=== PATIENT | female | born 1965 | race Caucasian/White ===

== ENCOUNTER 2018-02-11 22:08 | Emergency (ER) | payer OTHER, MEDICAID, SELFPAY ==
[2018-02-11 22:18] VITALS: BP 133/80; PULSE 70; RESP 66; TEMP 36.7; O2SAT 18; BMI 31.6
--- NOTE | 2018-02-11 22:43 | ED.CHESTPAIN ---
HPI - Chest Pain General Chief Complaint: Chest Pain Stated Complaint: CHEST PAIN Time Seen by Provider: 02/11/18 22:19 Source: patient Mode of arrival: ambulatory Limitations: no limitations History of Present Illness HPI narrative: 52-year-old female here for evaluation of chest pain. Patient states that she has had chest pain like this off and on for at least a month if not 2 months. Was evaluated at [facility] approximately 1 month ago for this and had a ???negative workup ???she has also seen her primary care doctor for this and is scheduled for a stress test this Saturday. She states that she was given Prilosec by her primary doctor which she has not taken because she did not feel that it is GI related. She was also given a prescription for nitroglycerin but has not taken it. She states that yesterday she had the same pain that she has today when she was outside working in the yard. She states that it is a pressure sensation. She states that it went away last night when she went to bed when she woke up this morning she did not have the symptoms. She states that approximately 7 hr prior to arrival here in the emergency department she had return of the symptoms. She states she was not exerting herself today. States that it is a constant pressure. She states that she does have ???GI problems ???she is seeing a GI provider for. She also has ???an elevated CRP ???that she is seeing Rheumatology for. Related Data Home Medications Medication Instructions Recorded Confirmed [MAXALT] 1 tab PO Q12HP PRN #0 05/31/11 gabapentin PO #0 10/20/17 Previous Rx's Medication Instructions Recorded amoxicillin 500 mg PO BID #20 cap 03/19/17 levonorgestrel-ethinyl estrad 1 tab PO QDAY #28 tab 01/07/18 [Lutera (28)] Allergies Allergy/AdvReac Type Severity Reaction Status Date / Time codeine [CODEINE] Allergy Mild NAUSEA Unverified 12/25/17 11:52 Sulfa (Sulfonamide Allergy Unknown HIVES Unverified 12/25/17 11:52 Antibiotics) [SULFA (SULFONAMIDE ANTIBIOTICS)] SENSITIVE TO NARCOTICS Allergy Mild NAUSEA Uncoded 12/25/17 11:52 Review of Systems Constitutional Denies chills, Denies fever(s), Denies lethargy and Denies weakness Cardiovascular Reports chest pain, Reports chest pain at rest, Reports chest pain with activity, Denies rapid heart rate, Denies lightheadedness, Denies palpitations, Denies dyspnea, Denies dyspnea on exertion and Denies orthopnea Respiratory Denies chest congestion, Denies cough, Denies dyspnea and Denies dyspnea on exertion Gastrointestinal Gastrointestinal: Denies change in bowel habits, Denies diarrhea and Denies vomiting Genitourinary Denies hematuria, Denies flank pain, Denies urinary incontinence and Denies urinary urgency Musculoskeletal Denies back pain, Denies muscle weakness, Denies numbness and Denies tingling Integumentary/Breasts Denies pruritus, Denies erythema, Denies rash and Denies wounds Neurologic Denies numbness, Denies tingling and Denies weakness Endocrine Denies palpitations Hematologic/Lymphatic Denies easy bruising PFS Surgical History History of third molar tooth extraction History of thyroidectomy (12/21/14) Status post laparoscopy Status post laparoscopy Social History Smoking Status: Former smoker Exam Initial Vital Signs Initial Vital Signs: Vital Signs Temperature 98.1 F 02/11/18 22:18 Pulse Rate 70 02/11/18 22:18 Respiratory Rate 66 H 02/11/18 22:18 Blood Pressure 133/80 H 02/11/18 22:18 Pulse Oximetry 18 L 02/11/18 22:18 Const General: cooperative and well developed Nutritional Appearance: well nourished Orientation: alert, awake, oriented x3 and not confused Chest Chest: normal inspection of the chest Resp Effort & Inspection: normal respiratory effort, able to speak in complete sentences, no respiratory distress and no use of accessory muscles Auscultation: clear to auscultation bilaterally, no rales, no rhonchi and no wheezes Cardio Rate: regular rate Rhythm: regular rhythm Heart Sounds: no click, no gallops, no murmurs and no rubs Pulses: normal peripheral pulses GI Inspection: non-distended Palpation: soft, no hepatosplenomegaly, No guarding, No pulsatile mass and No tender Auscultation: normal bowel sounds Back/Spine/Pelvis Back: No CVA tenderness Skin General: no rashes or lesions noted, No jaundice and No petechiae Neuro General: alert, oriented x3, gait normal and no focal motor deficits Speech: speech normal Extrem General: full ROM, no clubbing, cyanosis or edema, no pedal edema and no calf tenderness Course Orders Ordered: ED Orders 02/11/18 22:16 Complete Blood Count AUTO DIFF Stat Comprehensive Metabolic Panel Stat Lipase Stat Troponin with CK Cardiac Panel Stat 02/11/18 22:44 XR chest 1V Stat EKG-12 Lead Stat Sodium Chloride (Normal Saline 0.9%) 1,000 mls @ 150 mls/hr IV CONT NATA Last Admin: 02/11/18 22:53 Dose: 150 mls/hr Discontinued Medications Aspirin (Aspirin Chew) 324 mg PO NOW ONE Stop: 02/11/18 22:45 Last Admin: 02/11/18 22:53 Dose: Vital Signs - 8 hr 02/11/18 22:18 02/11/18 23:50 02/12/18 00:24 Temperature 98.1 F Pulse Rate 70 77 72 Respiratory Rate 66 H 17 19 Blood Pressure 133/80 H Blood Pressure [Left Arm] 120/65 119/72 Pulse Oximetry 18 L 98 98 MDM - Chest Pain Lab Data Attestation: I reviewed the patient's lab results. Result diagrams: 02/11/18 22:16 02/11/18 22:16 Lab Results 02/11/18 02/11/18 Range/Units 22:16 22:16 WBC 10.7 (4.5-11.0) X10^3/uL RBC 4.13 (4.0-5.2) X10^6/uL Hgb 12.8 (12.0-16.0) g/dL Hct 37.7 (36-46) % MCV 91.2 (80-100) fL MCH 31.0 (26-34) PG MCHC 34.0 (30-36) % RDW 13.5 (11.6-14.8) % Plt Count 258 (150-400) X10^3/uL Neut % (Auto) 64.2 (50-75) % Lymph % (Auto) 27.2 (25-40) % [place] % (Auto) 6.5 (3-14) % Eos % (Auto) 1.6 L (2-4) % Baso % (Auto) 0.5 (0-2) % Neut # (Auto) 6900 H (3081-7777) /uL Sodium 140 (137-145) mmol/L Potassium 3.4 (3.4-5.1) mmol/L Chloride 105 (98-107) mmol/L Carbon Dioxide 24 (22-32) mmol/L BUN 14 (7-17) mg/dL Creatinine 0.70 (0.52-1.04) mg/dL Estimated GFR > 60.0 (>60) mL/min BUN/Creatinine Ratio 20.0 (6-22) Glucose 78 (70-100) mg/dL Calcium 7.9 L (8.4-10.2) mg/dL Total Bilirubin 0.4 (0.2-1.3) mg/dL AST 36 (14-36) IU/L ALT 35 (9-52) IU/L Alkaline Phosphatase 58 (38-126) U/L Total Creatine Kinase 102 (30-135) U/L CK-MB (CK-2) 0.66 (<2.37) ng/mL CK-MB (CK-2) Rel Index 0.6 L (1.5-5.0) % Troponin I < 0.012 (0.01-0.034) ng/mL Total Protein 7.0 (6.3-8.2) g/dL Albumin 3.9 (3.5-5.0) g/dL Globulin 3.1 (1.7-4.1) g/dL Albumin/Globulin Ratio 1.3 (1.0-2.8) Lipase 111 (23-300) U/L Imaging Data Chest x-ray: Attestation: I personally reviewed and interpreted this imaging study as follows: My impression: Normal size heart No pneumonia No pneumothorax ECG Data Attestation: I personally reviewed and interpreted this ECG as follows: Prior ECG tracings: available for review Interpretation: EKG dated 11 Feb 2018 time 2215 hr Sinus rhythm Ventricular rate is 62 Normal axis Normal intervals Normal QRS No ST T wave changes EKG dated 01/17/2018 unchanged from today's EKG MDM Narrative Medical decision making narrative: Patient with normal EKG today. Unchanged from EKG earlier this month. Has had constant symptoms for greater than 6 hr. Troponin negative here in the emergency department. Has been seen multiple times for this exact symptom and has had negative cardiac workup. He is scheduled for a stress test on Saturday. Also has other ???GI ???symptoms that she is seeing a stock unloader for. She states that she is being seen for gastric motility issues. Given her symptoms and her EKG and negative troponin and the fact that the symptoms have been going on for 2 months now I have low concern currently for an acute SC. She was instructed that she should be taken her Prilosec as directed. We discussed return precautions. We discussed the importance of keeping her stress test appointment for Saturday. She expressed understanding and agreement with plan Discharge Plan Departure Patient Disposition: Home, Self-Care Clinical Impression: Chest pain Instructions: DI for Atypical Chest Pain Activity Restrictions/Additional Instructions: Recommend that you keep your appointment on Saturday for your stress test. Also recommend that you take the medications likely discussed. You may return to the emergency department at any time for new or concerning symptoms Prescriptions: No Action [MAXALT] 1 tab PO Q12HP PRNQty: 0 RF: 0 amoxicillin 500 MG capsule 500 mg PO BID Qty: 20 RF: 0 gabapentin 100 MG capsule PO Qty: 0 RF: 0 levonorgestrel-ethinyl estrad [Lutera (28)] 1 EACH tablet 1 tab PO QDAY Qty: 28 RF: 2
--- NOTE | 2018-02-11 22:44 | DI.RAD.S_ITS ---
PROCEDURE: XR CHEST 1V INDICATIONS: Chest pain TECHNIQUE: One view of the chest was acquired. COMPARISON: [facility], CR, CHEST 2 VIEW, 01/21/2013, 16:30. [facility], CT, THORAX WITHOUT CONTRAST, 09/15/2014, 14:25. FINDINGS: Surgical changes and devices: None. Lungs and pleura: No pleural effusions or pneumothorax. Lungs are clear. Mediastinum: Mediastinal contours appear normal. Heart size is normal. Bones and chest wall: No suspicious bony lesions. Overlying soft tissues appear unremarkable. IMPRESSION: No acute cardiopulmonary abnormality or interval change. Source of chest pain not seen. Dictated by: Narciso Hernandez M.D. on 02/12/2018 at 8:08 Approved by: Narciso Hernandez M.D. on 02/12/2018 at 8:10
[2018-02-11 22:50] LABS: Add Manual Diff / Slide Review NO; Basophils Percent Auto 0.5 % (0-2); Eosinophils Percent Auto 1.6 % (2-4); Hematocrit 37.7 % (36-46); Hemoglobin 12.8 g/dL (12.0-16.0); Lymphocytes Percent Auto 27.2 % (25-40); Mean Corpuscular Volume 91.2 fL (80-100); Monocytes Percent Auto 6.5 % (3-14); Neutrophils Absolute Auto 6900 /uL (3000-5900); Neutrophils Percent Auto 64.2 % (50-75); Platelet Count 258 X10^3/uL (150-400); Red Blood Cell Count 4.13 X10^6/uL (4.0-5.2); Red Cell Distribution Width 13.5 % (11.6-14.8); White Blood Cell Count 10.7 X10^3/uL (4.5-11.0)
[2018-02-11] MEDS: SODIUM CHLORIDE 0.9% 1,000 ML 150 ML IV (22:53)
[2018-02-11 22:58] LABS: Alanine Aminotransferase 35 IU/L (9-52); Albumin 3.9 g/dL (3.5-5.0); Albumin Globulin Ratio 1.3 (1.0-2.8); Alkaline Phosphatase 58 U/L (38-126); Aspartate Aminotransferase 36 IU/L (14-36); Bilirubin Total 0.4 mg/dL (0.2-1.3); Blood Urea Nitrogen 14 mg/dL (7-17); Calcium 7.9 mg/dL (8.4-10.2); Carbon Dioxide 24 mmol/L (22-32); Chloride 105 mmol/L (98-107); Creatine Kinase 102 U/L (30-135); Estimated Glomerular Filt Rate > 60.0 mL/min (>60); Globulin 3.1 g/dL (1.7-4.1); Glucose 78 mg/dL (70-100); HEMOLYSIS < 15 (0-50); Lipase 111 U/L (23-300); Potassium 3.4 mmol/L (3.4-5.1); Sodium 140 mmol/L (137-145)
[2018-02-11 23:10] LABS: Troponin I < 0.012 ng/mL (0.01-0.034)
[2018-02-11 23:13] LABS: CKMB % Relative Index 0.6 % (1.5-5.0); Creatine Kinase MB 0.66 ng/mL (<2.37)
[2018-02-11 23:50] VITALS: BP 120/65; PULSE 77; RESP 17; O2SAT 98
[2018-02-12 00:24] VITALS: BP 119/72; PULSE 72; RESP 19; O2SAT 98
[2018-02-12 00:30] VITALS: BP 119/72; PULSE 67; RESP 17; O2SAT 99
== END 2018-02-12 00:30 | disposition home or self-care (01) ==
PROVIDERS: Emergency Provider Emergency Medicine; Family Provider Physician Assistant Medical; PCP Family Medicine
DX: R07.89 Other chest pain (principal)
CPT/HCPCS: 36591; 71045; 80053; 82550; 82553; 83690; 84484; 85025; 93005; 96360; 99283; 99285

== ENCOUNTER → 2018-03-04 12:13 | Outpatient (CLI) | payer OTHER, MEDICAID, SELFPAY ==
--- NOTE | 2018-03-05 15:45 | DI.NM.S_ITS ---
DATE OF SERVICE: 03/04/2018 PROCEDURE: Exercise perfusion study. INDICATIONS: Exertional chest pain, hyperlipidemia. RADIOPHARMACEUTICAL: 20.2 mCi technetium-99m Myoview IV was injected at stress and 25.3 mCi technetium-99m Myoview IV was injected at rest. CARDIAC STRESS: Patient underwent exercise perfusion study under the supervision of an attending staff. She walked on Andrew protocol for 6 minutes 44 seconds achieves 7 METs of workload and maximum heart rate about 139 which was 82% of target heart rate. There was normal blood pressure response. No chest pain was reported. Baseline rhythm was sinus with RSR' complex in V1. Stress EKG did not reveal any obvious inducible ischemic changes. There were some isolated PVCs. No ventricular tachycardia seen. RAW DATA: There was significant breast shadow seen. GATED STUDY: Resting LV ejection fraction 71 and stress LV ejection fraction 73%. I don't see any obvious wall motion abnormalities. No transient ischemic dilatation. TID ratio is 0.90, which is within normal limits. Resting end- diastolic volume is 108 mL. Lung/heart ratio is 0.31, which is within normal limits. MYOCARDIAL PERFUSION SCAN: Stress supine, resting supine, and stress prone were compared to each other. Stress and resting supine images revealed mild-to- moderately sized mildly decreased perfusion of [id number] anterior wall and anterior apex which got significantly resolved during prone images. During prone images, there was new basal anterior wall defect. No reversible ischemia. CONCLUSION: I'll call this study likely a normal myocardial perfusion study with evidence of breast tissue attenuation artifact as well as some shifting breast tissue attenuation artifact as stated above. The patient has preserved left ventricular (LV). No wall motion abnormalities. She had similar myocardial perfusion defect on 03/03/2013 study as well. At that time she walked for about 9 minutes on Andrew protocol. Stress LV ejection fraction was 71%. As far as perfusion scan is concerned, this appears to be low-risk myocardial perfusion scan. Clinical correlation is recommended. Cecelia Ellis - DEBRA/beck/ doc#: [id number]/job#: [id number] dd: 03/05/2018 12:34:00 dt: 03/05/2018 15:29:00 DICTATING MD/COPIES TO: Emily Juárez MD COPIES MNE: SONIA
== END ==
PROVIDERS: Family Provider Physician Assistant Medical; PCP Family Medicine; Visit Provider Family Medicine
DX: R07.9 Chest pain, unspecified (principal); E78.5 Hyperlipidemia, unspecified
CPT/HCPCS: 78452; 93016; 93017; 93018; A9502

== ENCOUNTER → 2018-06-10 11:18 | Outpatient (CLI) | payer OTHER, MEDICAID, SELFPAY ==
--- NOTE | 2018-06-10 | DI.RAD.S_ITS ---
PROCEDURE: XR HIP W PEL IF DONE LT MIN 4V INDICATIONS: CHRONIC RIGHT HIP PAIN FOR SEVERAL MONTHS TECHNIQUE: AP pelvis with lateral view(s) of the bilateral hip(s). [facility] 16:54. FINDINGS: Bones: No fractures or dislocations. Pelvic ring appears intact. No suspicious bony lesions. Soft tissues: The visualized bowel gas pattern is normal. No suspicious soft tissue calcifications. IMPRESSION: No acute radiographic findings. If there is continued pain, followup exam or additional imaging such as MRI or CT could be performed for further assessment. Dictated by: Riddhi Rincon M.D. on 06/10/2018 at 15:09 Approved by: Riddhi Rincon M.D. on 06/10/2018 at 15:10
== END ==
PROVIDERS: Family Provider Physician Assistant Medical; PCP Family Medicine; Visit Provider Nurse Practitioner
DX: M25.551 Pain in right hip (principal); G89.29 Other chronic pain; M06.4 Inflammatory polyarthropathy; M25.50 Pain in unspecified joint
CPT/HCPCS: 73522

== ENCOUNTER 2018-08-10 13:56 | Emergency (ER) | payer OTHER, MEDICAID, SELFPAY ==
[2018-08-10 14:01] VITALS: BP 115/70; PULSE 91; RESP 20; TEMP 37; O2SAT 100; BMI 30.9
--- NOTE | 2018-08-10 14:02 | ED.CHESTPAIN ---
HPI - Chest Pain General Chief Complaint: Chest Pain Stated Complaint: CHEST AND JAW PAIN Time Seen by Provider: 08/10/18 14:01 Source: patient Mode of arrival: ambulatory Limitations: no limitations History of Present Illness HPI narrative: A 52-year-old female here for evaluation of left-sided chest pressure. She states that it has been a daily occurrence for the past several weeks. States that has no other associated symptoms. Not better or worse with palpation or deep breaths or movement. She states that it starts shortly after she wakes up for the day. Does not seem to be associated with eating. She states it actually starts before she eats anything. States she had a stress test with an echocardiogram last year and was told everything was normal. She was recently diagnosed with gastroparesis. Patient is not diabetic. Related Data Home Medications Medication Instructions Recorded Confirmed [MAXALT] 1 tab PO Q12HP PRN #0 05/31/11 04/29/18 cholecalciferol (vitamin D3) 1,000 1,000 unit PO DAILY 04/29/18 04/29/18 unit capsule cyanocobalamin (vitamin B-12) 2,500 mcg PO DAILY 04/29/18 04/29/18 2,500 mcg tablet diphenhydramine 25 1 tab PO BEDTIME PRN 04/29/18 04/29/18 mg-acetaminophen 500 mg tablet levothyroxine 100 mcg tablet 100 mcg PO DAILY 04/29/18 04/29/18 melatonin 10 mg capsule 10 mg PO BEDTIME PRN 04/29/18 04/29/18 Previous Rx's Medication Instructions Recorded levonorgestrel-ethinyl estradiol 1 tab PO QDAY #28 tab 07/23/18 0.1 mg-20 mcg tablet Allergies Allergy/AdvReac Type Severity Reaction Status Date / Time codeine [CODEINE] Allergy Mild NAUSEA Unverified 04/29/18 11:35 Sulfa (Sulfonamide Allergy Unknown HIVES Unverified 04/29/18 11:35 Antibiotics) [SULFA (SULFONAMIDE ANTIBIOTICS)] SENSITIVE TO NARCOTICS Allergy Mild NAUSEA Uncoded 04/29/18 11:35 Review of Systems Constitutional Denies fever(s) and Denies headache(s) ENT Ears, Nose, Mouth, and Throat: Denies vertigo and Denies headache(s) Cardiovascular Reports chest pain, Denies chest pain with activity, Denies irregular heart rhythm, Reports radiating jaw, neck or arm pain, Denies palpitations and Denies dyspnea Respiratory Denies cough, Denies dyspnea, Denies stridor and Denies wheezing Gastrointestinal Gastrointestinal: Denies abdominal pain, Denies change in bowel habits, Denies nausea and Denies vomiting Genitourinary Denies dysuria Musculoskeletal Denies myalgias and Denies arthralgias Integumentary/Breasts Denies rash Neurologic Denies vertigo and Denies headache(s) Endocrine Denies palpitations Hematologic/Lymphatic Comments: Not on anticoagulation Allergic/Immunologic Denies wheezing PFSH Medical History Asthma (Chronic) 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) Migraines (Chronic) Surgical History History of foot surgery (Resolved 01/2016) History of third molar tooth extraction (Resolved 1984) History of thyroidectomy (Resolved 12/21/14) Status post endometrial ablation (Resolved 12/21/14) Status post laparoscopy (Resolved 1982) Status post laparoscopy (Resolved 2001) Social History Smoking Status: Former smoker Exam Initial Vital Signs Initial Vital Signs: Vital Signs Temperature 98.6 F 08/10/18 14:01 Pulse Rate 91 H 08/10/18 14:01 Respiratory Rate 20 08/10/18 14:01 Blood Pressure 115/70 08/10/18 14:01 Pulse Oximetry 100 08/10/18 14:01 Const General: cooperative, healthy appearing, comfortable, well developed, well groomed and No acute distress Orientation: alert, awake and oriented x3 HENMT Head: normal to inspection and normocephalic Chest Chest: normal inspection of the chest and No tenderness Resp Effort & Inspection: normal respiratory effort Auscultation: clear to auscultation bilaterally Cardio Rate: regular rate Rhythm: regular rhythm Pulses: radial pulses present GI Inspection: non-distended Palpation: soft and No tender Skin Lesions: no lesions Rashes: no rashes Neuro General: alert, awake and oriented x3 Extrem General: normal to inspection and capillary refill normal Psych Appearance: grossly normal and well kempt Scores HEART Score Heart Score history: Slightly Suspicious Heart Score EKG: Normal Heart Score Age: 45-64 years old Heart Score risk factors: No known risk factors Heart Score troponin: < or = to normal limit Heart Score Total: 1 Course Orders Ordered: ED Orders 08/10/18 14:04 XR chest 1V Stat EKG-12 Lead Stat 08/10/18 14:05 Complete Blood Count AUTO DIFF Stat Comprehensive Metabolic Panel Stat Lipase Stat Partial Thromboplastin Time Stat Prothrombin Time INR Stat Troponin I Stat Discontinued Medications Aspirin (Aspirin Chew) 324 mg PO NOW ONE Stop: 08/10/18 14:04 Last Admin: 08/10/18 14:07 Dose: 324 mg Ondansetron HCl (Zofran) 4 mg IV NOW ONE Stop: 08/10/18 14:04 Last Admin: 08/10/18 14:33 Dose: 4 mg Vital Signs - 8 hr 08/10/18 14:01 08/10/18 14:30 08/10/18 15:00 Temperature 98.6 F Pulse Rate 91 H 71 84 Respiratory Rate 20 16 20 Blood Pressure 115/70 Blood Pressure [Right Arm] 116/73 99/68 Pulse Oximetry 100 99 99 08/10/18 16:03 Temperature Pulse Rate 81 Respiratory Rate 19 Blood Pressure Blood Pressure [Right Arm] 119/77 Pulse Oximetry 97 MDM - Chest Pain Lab Data Attestation: I reviewed the patient's lab results. Result diagrams: 08/10/18 14:05 08/10/18 14:05 Lab Results 08/10/18 08/10/18 08/10/18 Range/Units 14:05 14:05 14:05 WBC 9.5 (4.5-11.0) X10^3/uL RBC 4.22 (4.0-5.2) X10^6/uL Hgb 13.0 (12.0-16.0) g/dL Hct 39.0 (36-46) % MCV 92.4 (80-100) fL MCH 30.9 (26-34) PG MCHC 33.4 (30-36) % RDW 14.3 (11.6-14.8) % Plt Count 277 (150-400) X10^3/uL Neut % (Auto) 80.8 H (50-75) % Lymph % (Auto) 14.8 L (25-40) % [place] % (Auto) 3.5 (3-14) % Eos % (Auto) 0.3 L (2-4) % Baso % (Auto) 0.6 (0-2) % Neut # (Auto) 7700 H (2524-2844) /uL PT 11.4 (10.1-12.7) SECONDS INR 1.0 (0.9-1.3) APTT 27 (26.4-36.2) SECONDS Sodium 140 (137-145) mmol/L Potassium 4.1 (3.4-5.1) mmol/L Chloride 106 (98-107) mmol/L Carbon Dioxide 25 (22-32) mmol/L BUN 14 (7-17) mg/dL Creatinine 0.80 (0.52-1.04) mg/dL Estimated GFR > 60.0 (>60) mL/min BUN/Creatinine Ratio 17.5 (6-22) Glucose 104 H (70-100) mg/dL Calcium 8.7 (8.4-10.2) mg/dL Total Bilirubin 0.2 (0.2-1.3) mg/dL AST 21 (14-36) IU/L ALT 35 (9-52) IU/L Alkaline Phosphatase 46 (38-126) U/L Troponin I < 0.012 (0.01-0.034) ng/mL Total Protein 6.8 (6.3-8.2) g/dL Albumin 4.1 (3.5-5.0) g/dL Globulin 2.7 (1.7-4.1) g/dL Albumin/Globulin Ratio 1.5 (1.0-2.8) Lipase 97 (23-300) U/L Imaging Data Chest x-ray: Radiologist's impression: PROCEDURE: XR CHEST 1V INDICATIONS: Chest pain TECHNIQUE: One view of the chest was acquired. COMPARISON: , , XR CHEST 1V, 02/11/2018, 22:48. FINDINGS: Surgical changes and devices: None. Lungs and pleura: No pleural effusions or pneumothorax. Lungs are clear. Mediastinum: Mediastinal contours appear normal. Heart size is normal. Bones and chest wall: No suspicious bony lesions. Overlying soft tissues appear unremarkable. IMPRESSION: No acute pulmonary process. Dictated by: Lindy Santiago M.D. on 08/10/2018 at 14:42 Approved by: Lidny Santiago M.D. on 08/10/2018 at 14:42 ECG Data Attestation: I personally reviewed and interpreted this ECG as follows: Prior ECG tracings: not available for review Interpretation: Sinus rhythm sign ventricular rate is 71 Normal axis Normal intervals likely normal QRS Normal QTC No ST T wave changes MDM Narrative Medical decision making narrative: 52-year-old female with daily symptoms for the past several weeks with a normal EKG. Negative troponin. Normal chest x-ray. Heart score is 1. Had a stress echo performed 1 year ago that she states was normal. Low suspicion for ACS. Patient is not hypoxic. Not tachypneic. Has a normal exam. Had a long discussion with the patient regarding her symptoms. She is very concerned about her presenting symptoms. I tried to provide reassurance that her workup here in the emergency department looked well. I did inform her that she needed to talk with her primary care doctor about the indications for further stress testing or consult to see cardiology. She asked multiple times whether not she needed a cardiac catheterization. I informed her that she needed to talk with a ambulette driver or her primary care doctor regarding this. I do not feel she needs admitted to the hospital today. She was given return precautions. Discharge Plan Departure Patient Disposition: Home Clinical Impression: Atypical chest pain Instructions: DI for Atypical Chest Pain Activity Restrictions/Additional Instructions: Your workup here in the emergency department was very reassuring however I would recommend that you contact your primary care doctor tomorrow to discuss the indications for further workup or the indications for referral to see cardiology. Feel free to return to the emergency department at any time for new or worsening symptoms Prescriptions: No Action [MAXALT] 1 tab PO Q12HP PRNQty: 0 RF: 0 levonorgestrel-ethinyl estrad [Lutera (28)] 0.1-20 mg-mcg tablet 1 tab PO QDAY Qty: 28 RF: 11 levothyroxine 100 mcg tablet 100 mcg PO DAILY RF: 0 cholecalciferol (vitamin D3) 1,000 unit capsule 1,000 unit PO DAILY RF: 0 cyanocobalamin (vitamin B-12) 2,500 mcg tablet 2,500 mcg PO DAILY RF: 0 melatonin 10 mg capsule 10 mg PO BEDTIME PRNRF: 0 diphenhydramine-acetaminophen [Tylenol PM Extra Strength] 25-500 mg tablet 1 tab PO BEDTIME PRNRF: 0
[2018-08-10] MEDS: ASPIRIN 81 MG TAB 324 MG PO (14:07)
[2018-08-10 14:30] VITALS: BP 116/73; PULSE 71; RESP 16; O2SAT 99
[2018-08-10 14:31] LABS: Add Manual Diff / Slide Review NO; Basophils Percent Auto 0.6 % (0-2); Eosinophils Percent Auto 0.3 % (2-4); Lymphocytes Percent Auto 14.8 % (25-40); Mean Corpuscular HGB Conc 33.4 % (30-36); Mean Corpuscular Hemoglobin 30.9 PG (26-34); Mean Corpuscular Volume 92.4 fL (80-100); Monocytes Percent Auto 3.5 % (3-14); Neutrophils Absolute Auto 7700 /uL (3000-5900); Neutrophils Percent Auto 80.8 % (50-75); Platelet Count 277 X10^3/uL (150-400); Red Blood Cell Count 4.22 X10^6/uL (4.0-5.2); Red Cell Distribution Width 14.3 % (11.6-14.8); White Blood Cell Count 9.5 X10^3/uL (4.5-11.0)
[2018-08-10] MEDS: ONDANSETRON 4 MG/2 ML INJ IV (14:33)
[2018-08-10 14:41] LABS: Prothrombin Time 11.4 SECONDS (10.1-12.7)
[2018-08-10 14:43] LABS: PTT Partial Thromboplastin Tim 27 SECONDS (26.4-36.2)
[2018-08-10 14:45] LABS: Alanine Aminotransferase 35 IU/L (9-52); Albumin 4.1 g/dL (3.5-5.0); Albumin Globulin Ratio 1.5 (1.0-2.8); Alkaline Phosphatase 46 U/L (38-126); Aspartate Aminotransferase 21 IU/L (14-36); BUN Creatinine Ratio 17.5 (6-22); Bilirubin Total 0.2 mg/dL (0.2-1.3); Blood Urea Nitrogen 14 mg/dL (7-17); Calcium 8.7 mg/dL (8.4-10.2); Carbon Dioxide 25 mmol/L (22-32); Chloride 106 mmol/L (98-107); Estimated Glomerular Filt Rate > 60.0 mL/min (>60); Globulin 2.7 g/dL (1.7-4.1); Glucose 104 mg/dL (70-100); HEMOLYSIS < 15 (0-50); Lipase 97 U/L (23-300); Potassium 4.1 mmol/L (3.4-5.1); Sodium 140 mmol/L (137-145); Total Protein 6.8 g/dL (6.3-8.2)
[2018-08-10 14:59] LABS: Troponin I < 0.012 ng/mL (0.01-0.034)
[2018-08-10 15:00] VITALS: BP 99/68; PULSE 84; RESP 20; O2SAT 99
[2018-08-10 16:03] VITALS: BP 119/77; PULSE 81; RESP 19; O2SAT 97
== END 2018-08-10 16:23 | disposition home or self-care (01) ==
PROVIDERS: Emergency Provider Emergency Medicine; Family Provider Physician Assistant Medical; PCP Family Medicine
DX: R07.89 Other chest pain (principal)
CPT/HCPCS: 36591; 71045; 80053; 83690; 84484; 85025; 85610; 85730; 93005; 96374; 99283; 99285; J2405

== ENCOUNTER → 2018-11-10 11:23 | Outpatient (CLI) | payer OTHER, MEDICAID, SELFPAY ==
--- NOTE | 2018-11-10 | DI.US.S_ITS ---
PROCEDURE: US CAROTID DOPPLER BI INDICATIONS: DIZZINESS TECHNIQUE: Color and pulse Doppler interrogation was performed of both carotid systems, with image documentation and velocity measurements. COMPARISON: None. FINDINGS: Stenosis calculations are based on SRU (Society of Radiologists in Ultrasound) criteria. Right side: Brachial blood pressure: 114/84 mm Hg. Common carotid artery peak systolic velocity: 83 cm/sec. Internal carotid artery peak systolic velocity: 80 cm/sec. Internal carotid artery end diastolic velocity: 22 cm/sec. External carotid artery peak systolic velocity: 87 cm/sec. ICA/CCA peak systolic ratio: 0.96 . Huerta scale imaging description: No visualized plaque. Percent internal carotid artery stenosis: None. Vertebral artery: Flow direction is antegrade. Left side: Brachial blood pressure: 112/79 mm Hg. Common carotid artery peak systolic velocity: 79 cm/sec. Internal carotid artery peak systolic velocity: 100 cm/sec. Internal carotid artery end diastolic velocity: 30 cm/sec. External carotid artery peak systolic velocity: 82 cm/sec. ICA/CCA peak systolic ratio: 1.26 . Huerta scale imaging description: Mild plaque at the bifurcation. Percent internal carotid artery stenosis: Less than 50% Vertebral artery: Flow direction is antegrade. IMPRESSION: Less than 50% stenosis of the internal carotid arteries bilaterally. Dictated by: Lindy Santiago M.D. on 11/10/2018 at 16:04 Approved by: Lindy Santiago M.D. on 11/10/2018 at 16:08
== END ==
PROVIDERS: Family Provider Physician Assistant Medical; PCP Family Medicine; Visit Provider Family Medicine
DX: I65.23 Occlusion and stenosis of bilateral carotid arteries (principal); R42 Dizziness and giddiness
CPT/HCPCS: 93880

== ENCOUNTER → 2018-11-19 11:26 | Outpatient (REF) | payer OTHER, MEDICAID, SELFPAY | LOC: LAB 11:26 | PROVIDERS: Family Provider Physician Assistant Medical; PCP Family Medicine; Visit Provider Family Medicine | DX: J06.9 Acute upper respiratory infection, unspecified (principal) | CPT/HCPCS: 87400 ==

== ENCOUNTER → 2018-11-21 12:22 | Outpatient (CLI) | payer OTHER, MEDICAID, SELFPAY ==
--- NOTE | 2018-11-21 | DI.RAD.S_ITS ---
PROCEDURE: XR CHEST 2V INDICATIONS: COUGH TECHNIQUE: 2 views of the chest were acquired. COMPARISON: [facility], CR, XR CHEST 1V, 08/10/2018, 14:22. [facility], CR, XR CHEST 1V, 02/11/2018, 22:48. FINDINGS: Surgical changes and devices: None. Lungs and pleura: Lungs are clear. No pleural effusions or pneumothorax. Mediastinum: Mediastinal contours are normal. Heart size is normal. Bones and chest wall: No suspicious bony abnormalities. Soft tissues appear unremarkable. IMPRESSION: Normal for age, source of current cough symptoms is not seen. Dictated by: Caio Chester M.D. on 11/21/2018 at 13:15 Approved by: Caio Chester M.D. on 11/21/2018 at 13:15
== END ==
PROVIDERS: PCP Family Medicine; Visit Provider Family Medicine
DX: R05 Cough (principal)
CPT/HCPCS: 71046

== ENCOUNTER → 2019-01-23 12:40 | Outpatient (CLI) | payer OTHER, MEDICAID, SELFPAY ==
--- NOTE | 2019-01-23 | DI.MG.S_ITS ---
BILATERAL DIGITAL SCREENING MAMMOGRAM 3D/2D WITH CAD: 01/23/2019 CLINICAL: Routine screening. Family history of breast cancer. Comparison is made to exams dated: 11/01/2017 mammogram, 10/03/2016 mammogram, and 07/15/2015 mammogram - [facility]. There are scattered fibroglandular elements in both breasts. Current study was also evaluated with a Computer Aided Detection (CAD) system. No significant masses, calcifications, or other findings are seen in either breast. There has been no significant interval change. IMPRESSION: NEGATIVE There is no mammographic evidence of malignancy. A 1 year screening mammogram is recommended. This exam was interpreted at Station ID: [id number]. NOTE: For mammograms, a report in lay terms will be sent to the patient. Approximately 15% of breast malignancies will not be visualized mammographically. In the management of a palpable breast mass, a negative mammogram must not discourage biopsy of a clinically suspicious lesion. Electronically Signed By: Turner baptiste/salvador:01/23/2019 17:27:10 copy to: Obed Peñaloza letter sent: Normal Exam ACR BI-RADS Category 1: Negative 3341F
== END ==
PROVIDERS: PCP Family Medicine; Visit Provider Obstetrics & Gynecology
DX: Z12.31 Encounter for screening mammogram for malignant neoplasm of breast (principal); Z80.3 Family history of malignant neoplasm of breast
CPT/HCPCS: 77063; 77067

== ENCOUNTER → 2019-02-26 13:47 | Outpatient (CLI) | payer OTHER, MEDICAID, SELFPAY | PROVIDERS: PCP Family Medicine; Visit Provider Family Medicine | DX: M79.601 Pain in right arm (principal) | CPT/HCPCS: 95885; 95886; 95909 ==

== ENCOUNTER → 2019-04-13 16:23 | Outpatient (CLI) | payer OTHER, MEDICAID, SELFPAY ==
--- NOTE | 2019-04-13 | DI.MRI.S_ITS ---
PROCEDURE: MR HIP RT WO CON INDICATIONS: RIGHT HIP BUTTOCK PAIN TECHNIQUE: Noncontrast coronal T1 spin echo and STIR through the bony pelvis. Coronal and axial T2 fast spin echo with fat saturation, sagittal T1 spin echo, and oblique axial T2 fast spin echo with fat saturation through the hip. COMPARISON: None. FINDINGS: Image quality: Diagnostic. Bones and joints: There is no acute fracture, dislocation, suspicious osseous lesion, or evidence of avascular necrosis involving the right hip. Mild to moderate degenerative changes of the right hip are present with heterogeneity and thinning of the hyaline articular cartilage as well as small developing marginal osteophytes. There is no significant hip joint effusion. Minimal reactive marrow edema is evident at the region of the fovea centralis of the proximal right hip. There may also be minimal degenerative cystic change along the periphery of the anterior aspect of the acetabulum. The alpha angle of the right femoral head measures approximately 55?. The remainder of the imaged osseous structures of the pelvis demonstrate no acute fractures or suspicious osseous lesions. Labrum: Evaluation of the acetabular labrum is suboptimal without intra-articular contrast. However, there is a tear evident along the superior aspect of the labrum that extends from approximately the 10 o'clock position (anterosuperior) through the 12 o'clock position (superior) into approximately at the 1 o'clock position (posterosuperior). There is a small para labral cyst identified extending along the anterosuperior margin of the labrum, which extends cranially and measures up to approximately 3.1 x 0.5 x 0.6 cm (image 5, series 6). Tendons and ligaments: The ligamentum teres isn't noted to be markedly edematous and irregular, which is suggestive of a tear. There slight increased signal involving the proximal hamstrings tendons. The distal iliopsoas tendons are intact. The right gluteus medius and gluteus minimus tendons are within normal limits. Soft tissues: Visualized muscles demonstrate normal bulk and internal signal. Quadratus femoris muscle demonstrates no internal edema to suggest ischiofemoral impingement. The proximal sciatic neurovascular bundle appears normal adjacent to the hamstring tendons. No free pelvic fluid. Bladder wall thickness is normal. The uterus is atrophic. There is a small structure demonstrating low signal intensity on the fluid sensitive sequences within the endometrial cavity region which may represent calcification versus polyp. This is not adequately characterized on this exam. The urinary bladder is decompressed. The ovaries do not appear to be enlarged. Imaged bowel loops are nondilated. IMPRESSION: 1. Mild to moderate degenerative changes of the right hip. No acute process. 2. Irregular small to moderate-sized superior right acetabular labral tear with a corresponding para labral cyst. 3. Mild proximal right hamstrings tendinopathy. 4. Probable full-thickness or near full-thickness tear of the right ligamentum teres. Dictated by: Isai Bhardwaj M.D. on 04/14/2019 at 8:43 Approved by: Isai Bhardwaj M.D. on 04/14/2019 at 8:53
== END ==
DX: M16.11 Unilateral primary osteoarthritis, right hip (principal); M76.9 Unspecified enthesopathy, lower limb, excluding foot; S73.101A Unspecified sprain of right hip, initial encounter; M25.551 Pain in right hip
CPT/HCPCS: 73721

== ENCOUNTER → 2019-05-14 12:20 | Outpatient (CLI) | payer OTHER, MEDICAID, SELFPAY ==
--- NOTE | 2019-05-14 | DI.US.S_ITS ---
PROCEDURE: US EXTREMITY NONVASC LOWER LT INDICATIONS: Localized swelling, mass and lump, left lower limb TECHNIQUE: Real-time scanning was performed of the left chatman, with image documentation. COMPARISON: Right knee radiographs 03/30/2019. FINDINGS: Area of concern at in the distal left lower extremity laterally. On my clinical examination there is a mildly prominent soft tissue bulge which is soft and compressible. No overlying erythema. On sonographic evaluation there is ill-defined asymmetric superficial soft tissue which is similar to the surrounding muscle fibers and subcutaneous fat. No mass, discrete lipoma, or varicose vein. No fluid collection. There is subtle undulation in the underlying echogenic fascia line. The abnormality does not appear to be related to the bone. Exam findings were discussed with the patient as well as real-time evaluation with radiologist. IMPRESSION: No mass, varicose vein, lipoma, or fluid collection. The exact etiology of these soft tissue bulge is uncertain but may possibly be related to asymmetric muscle bulge possibly do to a subtle fascial injury. Recommend continued clinical surveillance. If clinically indicated radiographs of the left distal extremity could also be performed. Dictated by: Hitesh Rodarte M.D. on 05/14/2019 at 13:28 Approved by: Hitesh Rodarte M.D. on 05/14/2019 at 13:37
== END ==
PROVIDERS: PCP Student in an Organized Health Care Education/Training Program; Visit Provider Student in an Organized Health Care Education/Training Program
DX: R22.42 Localized swelling, mass and lump, left lower limb (principal)
CPT/HCPCS: 76882

== ENCOUNTER → 2019-05-19 15:39 | Outpatient (CLI) | payer OTHER, MEDICAID, SELFPAY ==
--- NOTE | 2019-05-19 | DI.RAD.S_ITS ---
PROCEDURE: XR TIBIA FIBULA RT 2V INDICATIONS: Lt lower leg mass-unspecified TECHNIQUE: 2 views of the tibia and fibula were acquired. COMPARISON: None. FINDINGS: Bones: No fractures or dislocations. No suspicious bony lesions. Soft tissues: No suspicious soft tissue calcifications or masses. IMPRESSION: No lesion is found. The underlying bone structures appear normal. If there is a clinical concern for presence of underlying infection or neoplasm contrast-enhanced MR scanning is recommended. Dictated by: Caio Chester M.D. on 05/19/2019 at 16:12 Approved by: Caio Chester M.D. on 05/19/2019 at 16:12
== END ==
PROVIDERS: PCP Student in an Organized Health Care Education/Training Program; Visit Provider Student in an Organized Health Care Education/Training Program
DX: R22.42 Localized swelling, mass and lump, left lower limb (principal)
CPT/HCPCS: 73590

== ENCOUNTER 2019-07-13 06:38 | Day surgery (SDC) | payer OTHER, MEDICAID, SELFPAY ==
[2019-07-10 08:30] VITALS: BMI 30.7
[2019-07-13] VITALS (10 sets, daily range): BP systolic 103–123; BP diastolic 61–77; PULSE 54–88; RESP 12–19; TEMP 36–36.6; O2SAT 94–100; BMI 30.7
[2019-07-13] MEDS: LACTATED RINGERS 1,000 ML 100 ML IV (07:41)
--- NOTE | 2019-07-13 07:49 | PM.HP.1 ---
History of Present Illness History of Present Illness Date Patient Seen: 07/13/19 Time Patient Seen: 07:49 Chief complaint: [id number] Narrative: The patient is a woman here for exploration of an area that swells on our left lower extremity. Patient History Medical History Arthritis (Acute) Asthma (Chronic) Bruises easily (Acute) Constipation (Acute) Fibromyalgia (Acute) Former smoker (Acute) Gastroparesis (Acute) Heart murmur (Acute) History of headache (Acute) History of pneumonia (Acute) Low blood sugar (Acute) Malignant hyperthermia (Acute ~12/2014) Migraines (Chronic) Osteoarthritis (Acute) Sinus drainage (Acute) Surgical History History of foot surgery (Resolved 01/2016) History of third molar tooth extraction (Resolved 1984) History of thyroidectomy (Resolved 12/21/14) Status post endometrial ablation (Resolved 12/21/14) Status post laparoscopy (Resolved 1982) Status post laparoscopy (Resolved 2001) Family & Social History Family History Mother Stroke Grandmother Cancer Father Heart disease Grandfather Heart disease Social History: household members none Tobacco & Substance use: Smoking Status Smoker, status unknown alcohol intake frequency holiday/special occasion Substance Use Type does not use Meds Home Medications and Allergies Home Medications Medication Instructions Recorded Confirmed Type rizatriptan [Maxalt] 10 mg PO Q2-4H PRN #0 05/31/11 07/13/19 History cholecalciferol (vitamin D3) 1,000 1,000 unit PO DAILY 04/29/18 07/13/19 History unit capsule cyanocobalamin (vitamin B-12) 2,500 mcg PO DAILY 04/29/18 07/13/19 History 2,500 mcg tablet diphenhydramine 25 1 tab PO BEDTIME PRN 04/29/18 07/13/19 History mg-acetaminophen 500 mg tablet levothyroxine 100 mcg tablet 100 mcg PO DAILY 04/29/18 07/13/19 History melatonin 10 mg capsule 10 mg PO BEDTIME PRN 04/29/18 07/13/19 History gabapentin 300 mg capsule 600 mg PO DAILY 01/23/19 07/13/19 History methylprednisolone 2 mg tablet 4 mg PO DAILY 01/23/19 07/13/19 History levonorgestrel-ethinyl estradiol 1 tab PO QDAY #28 tab 04/03/19 07/13/19 Rx 0.1 mg-20 mcg tablet Allergies Allergy/AdvReac Type Severity Reaction Status Date / Time Sulfa (Sulfonamide Allergy Severe HIVES Verified 07/13/19 07:29 Antibiotics) [SULFA (SULFONAMIDE ANTIBIOTICS)] codeine [CODEINE] Allergy Mild NAUSEA Verified 07/13/19 07:29 SENSITIVE TO NARCOTICS Allergy Severe NAUSEA Uncoded 07/10/19 09:45 Review of Systems Review of Systems ROS Unobtainable: All systems reviewed & are unremarkable except as noted in HPI and below Exam Vital Signs (past 8 hours): - 07/13/19 07:41 Temperature 97.1 F L Pulse Rate 88 Respiratory Rate 15 Blood Pressure 123/77 Pulse Oximetry 100 Oxygen Delivery Method Room Air Narrative Exam Narrative: Patient is alert and oriented. The the lungs are clear. Heart regular rate and rhythm without murmur gallop. No rashes on the left lower extremity. Small fascial defect felt with small bulge left lower extremity lateral. Assessment & Plan Assessment & Plan narrative: Patient for exploration of this area. Is been scopes with her in the office. Options of MRI and observation were discussed and she wishes to proceed. Uncertain what I am going to find I suspect this is a fascial defect.
[2019-07-13] MEDS: CEFAZOLIN 2 GM/100 ML FROZ.PIGGY IV (08:03)
--- NOTE | 2019-07-13 08:25 | SUR.OPER ---
Supine on padded OR bed, head on pillow, arms secured on padded arm boards at <90 degrees abduction, legs uncrossed, safety belt at thigh, tape over blanket over lower legs.
[2019-07-13] MEDS: BUPIVACAINE 0.5% W/ EPI (PF) VIAL 30 ML INJ (08:33)
--- NOTE | 2019-07-13 09:26 | PM.OP.1 ---
Operative Date/Time/Diagnoses Date of procedure: 07/13/19 Time of procedure: 09:00 Pre-op diagnosis: Mass left lower extremity lateral Post-op diagnosis: same (Fascial defect in the muscle.) Procedure & Clinicians Procedure: Exploration of the area. Same procedure as scheduled: Yes Indications: Patient with a mass that she desired to be explored. Did not want an MRI to evaluate. Surgeon: Omega Webster Click Yes if Unassisted: Yes Anesthesia Type: General Operative Notes Findings: Fascial defect. Defect was not quite limited but could not be closed without impinging a nerve running through the fascial defect site. Closure Type: primary Specimen(s): none sent Prosthetic devices, grafts, tissues, transplants, or devices: None Estimated Blood Loss (mL): 3 Blood products transfused: none Procedure in detail: Patient was placed supine on the operating room table and underwent general LMA anesthesia. She was prepped and draped in the usual fashion. The site had been marked preoperatively in a vertical incision made through it. Was carried down through the subcu fat to the level the fascia. I explored the area and found a fascial defect but running directly through it was what appeared to be a fairly significant neurologic structure. In considering closure of the fascial defect I was concerned that I would impinge on this nerve and cause chronic pain. Therefore because this is a benign issue and there was no tumor other mass and it was clear that with compression around it muscle is what bulge through it I chose not to close the fascial defect. The subcu was closed with interrupted 3 0 Vicryl. The skin was closed running 5 0 nylon. Dressing was applied patient tolerated the procedure well. Complications: none Post-operative Condition: stable Disposition: PACU Plan for aftercare: Follow-up in office for suture remove
--- NOTE | 2019-07-13 10:00 | SUR.PHASEII ---
Dr. Power notified pt's hr 52. Pt denied feeling light headed, dizzy or nauseated. OK for patient to discharge per MD. Pt notified then c/o feeling lightheaded. Juice and crackers provided. Call light within reach. Will continue to monitor.
--- NOTE | 2019-07-13 10:16 | SUR.PHASEII ---
Pt ambulated to bathroom, sba. Jennifer steady.
--- NOTE | 2019-07-13 10:38 | SUR.PHASEII ---
Pt dressed independently. Stood and transferred to the chair independently.
== END 2019-07-13 10:35 | disposition home or self-care (01) ==
PROVIDERS: PCP Student in an Organized Health Care Education/Training Program; Visit Provider Specialist
PROC: (CPT 27600; principal; 2019-07-13 07:45)
DX: Q89.9 Congenital malformation, unspecified (principal); M79.7 Fibromyalgia; M19.90 Unspecified osteoarthritis, unspecified site; Z87.891 Personal history of nicotine dependence; J45.909 Unspecified asthma, uncomplicated
CPT/HCPCS: 27600; 35761; J0690; J1100; J2405; J2704; J2765

== ENCOUNTER 2019-10-06 12:44 | Outpatient (CLI) | payer OTHER, MEDICAID, SELFPAY ==
[2019-10-06] VITALS (9 sets, daily range): BP systolic 100–139; BP diastolic 49–80; PULSE 64–85; RESP 16; TEMP 36.3; O2SAT 98–100
--- NOTE | 2019-10-06 12:45 | DI.RAD.S_ITS ---
PROCEDURE: PAIN SI JOINT INJECTION INDICATIONS: SACROCOCCYGEAL DISORDER FINDINGS: Fluoroscopic spot filming was performed to verify placement of spinal needles at the right SI joint inferiorly, as labeled on the films. Appropriate location(s) of the needle tip(s) was confirmed by injection of iodinated contrast. IMPRESSION: Successful right inferior SI joint needle tip localization for presumed steroid injection. Dictated by: Caio Chester M.D. on 10/07/2019 at 8:35 Approved by: Caio Chester M.D. on 10/07/2019 at 8:35
[2019-10-06] MEDS: MIDAZOLAM 5 MG/5 ML VIAL IV (14:10)
[2019-10-06] MEDS: BUPIVACAINE 0.5% (PF) VIAL 2 ML INJ (14:19)
[2019-10-06] MEDS: IOPAMIDOL 15 ML VIAL 3 ML INJ (14:19)
[2019-10-06] MEDS: BETAMETHASONE 30 MG/5 ML MDV 12 MG INJ (14:19)
--- NOTE | 2019-10-06 14:21 | PC.NURSE ---
ASSISTING PT OFF TABLE AND TRANSPORTING TO POST PROC AREA IN STABLE CONDITION. PASSING RN CARE OF PT TO IRLANDA Mccallum RN.
--- NOTE | 2019-10-06 14:25 | P.PCN_ITS ---
Procedures Date/Time Date of procedure: 10/06/19 Time of procedure: 14:25 General Procedure description: PREOP Dx: Sacroiliac joint pain/DJD POST OP DX: Sacroiliac Joint Pain/DJD Procedures: Fluoroscopic guided contrast controlled right sacroiliac joint injection Physician: Johnson Landaverde D.O. Indications: Cecelia is referred by Dr. Lau for treatment of right sacroiliac joint DJD Description of procedure Fluoroscopic guided, contrast controlled right sacroiliac joint injection Following review of allergies and review of potential side effects and complications, including, but not necessarily limited to, infection, allergic reaction, local tissue breakdown, temporary as well as permanent nerve injury, paralysis, stroke and possible , the patient indicated that they understood and agreed to proceed. An informed consent was signed by the patient, witnessed by a nurse, and placed in the patient's chart. Additionally, other treatment options including modalities, medications, and physical therapy were reviewed w ith the patient. After review of previous anaesthesic history and IV conscious sedation the patient was deemed safe to proceed with todays procedure with IV conscious sedation as ASA class II designation. Safety time-out was performed to confirm patient ID, procedure to be performed and site of procedure. IV sedation was accomplished with 3mg of Versed was administered by the RN after DO order, t itrated to patient comfort during the course of the procedure while the patient remained responsive to all verbal commands In the prone position following sterile prep and drape of the pelvic region, the hyper lucency on in the inferior aspect of the sacroiliac joint was identified fluoroscopically the skin was anesthetized be a 25 gauge 1 eventual with approximately 2 cc of 1% lidocaine solution. At this point, a 22 gauge 3 in spinal needle was atraumatically introduced and advanced under fluoroscopic guidance into the inferior aspect of the right sacroiliac joint. Following negative aspiration, approximately 0.3 cc of Isovue-300 was injected confirming intra-articular placement without vascular uptake. Radiographic data, including multiple fluoroscopic views of the pelvis, reveals a spinal needle in the sacroiliac joint hyper lucent zone. Subsequent view show flow contrast tear superiorly and inferiorly within the joint capsule without vascular intrathecal uptake. At this point a total of 1 cc or 0 8 of 0.5% Marcaine was combined with 1 cc of 6 mg of betamethasone was injected without incident. The procedure tolerated the procedure well without signs or symptoms of complic ations prior to transfer to the recovery area continued monitoring without incident. The patient was then transferred to the recovery area with a bur observed for an appropriate time after the injection. The patient reverted a vas score of 7 prior to the procedure and postprocedure vas of 1. Total fluoroscopy time: 9 sec Total conscious sedation time: 24 min Postop instructions The patient was provided with a pain like to continue to record the patient's response to the target specific procedure prior to the patient's follow-up visit with the referring physician. Additionally, specific post injection care instructions and a contact number to our office were provided if concerns arise regarding the possible complications associated with procedure are suspected. Johnson Landaverde D.O. Complications: none
== END 2019-10-06 15:13 | disposition home or self-care (01) ==
LOC: RAD 12:45
PROVIDERS: Family Provider Student in an Organized Health Care Education/Training Program; PCP Student in an Organized Health Care Education/Training Program; Visit Provider Physical Medicine & Rehabilitation
DX: M53.3 Sacrococcygeal disorders, not elsewhere classified (principal); M47.898 Other spondylosis, sacral and sacrococcygeal region
CPT/HCPCS: 27096; 99152; J0702; J2250; J3010

== ENCOUNTER → 2020-01-20 13:54 | Outpatient (CLI) | payer OTHER, MEDICAID, SELFPAY ==
[2020-01-20 15:01] LABS: Add Manual Diff / Slide Review NO; Basophils Absolute Auto 100 /uL (0-100); Basophils Percent Auto 0.8 % (0-2); Eosinophils Absolute Auto 100 /uL (0-450); Eosinophils Percent Auto 1.3 % (2-4); Hematocrit 36.2 % (36-46); Hemoglobin 12.5 g/dL (12.0-16.0); Lymphocytes Absolute Auto 2900 /uL (1100-4500); Mean Corpuscular HGB Conc 34.4 % (30-36); Mean Corpuscular Hemoglobin 31.3 PG (26-34); Mean Corpuscular Volume 90.8 fL (80-100); Monocytes Absolute Auto 500 /uL (0-900); Neutrophils Absolute Auto 5500 /uL (1500-7000); Neutrophils Percent Auto 60.9 % (50-75); Platelet Count 289 X10^3/uL (150-400); Red Blood Cell Count 3.98 X10^6/uL (4.0-5.2); Red Cell Distribution Width 13.5 % (11.6-14.8); White Blood Cell Count 9.1 X10^3/uL (4.5-11.0)
[2020-01-20 15:31] LABS: Erythrocyte Sedimentation Rate 15 MM/HR (0-20)
[2020-01-20 15:35] LABS: Hemoglobin A1C% w Est Avg Glu 5.6 % (4.0-6.0)
[2020-01-20 16:15] LABS: Alanine Aminotransferase 17 IU/L (<35); Albumin Globulin Ratio 1.4 (1.0-2.8); Alkaline Phosphatase 58 U/L (38-126); Aspartate Aminotransferase 24 IU/L (14-36); BUN Creatinine Ratio 15.9 (6-22); Bilirubin Total 0.3 mg/dL (0.2-1.3); Blood Urea Nitrogen 14 mg/dL (7-17); C-Reactive Protein Quant 1.7 mg/dL (<1.0); Calcium 9.1 mg/dL (8.4-10.2); Carbon Dioxide 24 mmol/L (22-32); Chloride 105 mmol/L (98-107); Estimated Glomerular Filt Rate > 60.0 mL/min (>60); Globulin 2.8 g/dL (1.7-4.1); Glucose 90 mg/dL (70-100); HEMOLYSIS < 15 (0-50); Potassium 3.9 mmol/L (3.4-5.1); Sodium 137 mmol/L (137-145); Total Protein 6.8 g/dL (6.3-8.2)
[2020-01-20 16:45] LABS: Thyroid Stimulating Hormone 2.08 uIU/mL (0.47-4.68)
[2020-01-20 17:00] LABS: Vitamin B12 368 pg/mL (239-931)
== END ==
PROVIDERS: Family Provider Student in an Organized Health Care Education/Training Program; PCP Student in an Organized Health Care Education/Training Program; Referring Provider Internal Medicine Endocrinology, Diabetes & Metabolism; Visit Provider Nurse Practitioner
DX: M06.09 Rheumatoid arthritis without rheumatoid factor, multiple sites (principal); E53.8 Deficiency of other specified B group vitamins; E88.81 Metabolic syndrome and other insulin resistance
CPT/HCPCS: 36415; 80053; 82607; 83036; 84443; 85025; 85651; 86140

== ENCOUNTER → 2020-03-02 16:27 | Outpatient (CLI) | payer OTHER, MEDICAID, SELFPAY ==
--- NOTE | 2020-03-02 16:30 | DIET.PN ---
Dietary Progress Note Assessment: 54y F referred for pre-DM (A1c 5.8), high TGs, elevated LDL cholesterol, and gastroparesis. Pt eats everything white now, is vegetarian 20y for ethical reasons, sometimes eats fish, likes cheese, eats eggs daily. Loves sugar. Pt gastroparesis diet reccs include low fat, low fiber diet, pt confused as to what she can and should eat. feels like she is crashing, dizzy throughout day does take supplements to fill nutritional gaps Pt has almost no vegetable intake, still eating most fruits, avoids dairy except cheese, does oat milk and almond milk Usual Day: wakes 530-730am levothyroxine and omeprazole (acid cpht) waits an hour B: egg mcmuffin or eggs c potato smoothie: 16oz frozen banana, dark cherries, spinach, protein mix, oat/almond milk c water L (12-2): ten triscuits and palauan cheese, tuna salad, smoothie, pizza, chips, potatoes D: cheese enchiladas, cereal, quick and easy but not fast food, garden burger, salmon and brown rice, clam spaghetti Likes candy: cookies, cake, chocolate- feels like she has no control c sugar intake, if none in the house, she will go out to get some. WT: 191# BMI: 30.8 Labs: A1c improved from 5.8 to 5.6, TG 232, LDL 98, TC 190 Nutrition Diagnosis: 1. difficulty with nutrition self management r/t restricted food options (vegetarian, low fiber foods, low fat foods, and elevated TG, TC, BG, A1c) aeb pt reports confusion on what is safe and good to eat, pt continues to experience bloating, chronic constipation. 2. obesity r/t restricted food options aeb pt unable to eat high fiber foods, most vegetables, pt vegetarian for 20 years, BMI 30.8. 3. Altered nutrition related laboratory values (TG, TC, A1c) r/t restricted food options aeb TG 232 H, A1c 5.8 H, TC 190, LDL 98 Interventions: 1. Discussed retrograde starch, to decrease glycemic load of white potato, rice, pasta, cook and completely cool these foods before eating (hot or cold). 2. Discussed role of physical activity in A1c, cholesterol, weight, and gastric emptying, aim for 30min five times per week, helder after meals. 3. Consider getting glucometer to monitor blood glucose to get better insight into effect of white foods on BG and what BGs are when feeling dizzy. Monitoring/Evaluations: renewing referral r/t covid closures, pt will get abd ultrasound next week and call to schedule f/u after. Goals for care are continued regulation of blood labs (TG, TC, BG, A1C) and liberalizing gastroparesis diet reccs to personalize for pt needs. Work on sugar cravings and suitable alternatives.
== END ==
PROVIDERS: Family Provider Student in an Organized Health Care Education/Training Program; PCP Student in an Organized Health Care Education/Training Program; Referring Provider Student in an Organized Health Care Education/Training Program; Visit Provider Student in an Organized Health Care Education/Training Program
DX: R73.03 Prediabetes (principal); K31.84 Gastroparesis; E78.2 Mixed hyperlipidemia; E66.9 Obesity, unspecified; Z71.3 Dietary counseling and surveillance; Z68.30 Body mass index [BMI] 30.0-30.9, adult
CPT/HCPCS: 97802

== ENCOUNTER → 2020-03-16 11:00 | Outpatient (CLI) | payer OTHER, MEDICAID, SELFPAY ==
--- NOTE | 2020-03-16 | DI.US.S_ITS ---
PROCEDURE: US ABDOMEN COMPLETE INDICATIONS: UNSPECIFIED ABDOMINAL PAIN TECHNIQUE: Real-time scanning was performed of the abdominal and retroperitoneal organs, with image documentation. COMPARISON: [facility], [place], ABDOMEN COMPLETE, 10/06/2015, 10:34. FINDINGS: Liver: Diffuse echogenic appearance. No focal lesion identified. Liver measures 17.0 cm in length. Gallbladder: Contracted otherwise grossly unremarkable. Biliary ducts: Intrahepatic bile ducts are non-dilated. Extrahepatic bile duct caliber measures 2-5 mm. Normal is 6-7 mm or less in diameter, or 10 mm or less post-cholecystectomy. Pancreas: Visualized portions of the pancreas are sonographically normal. Spleen: Spleen is normal in size and homogeneous in echotexture. Kidneys: Kidneys are normal in size and echotexture. Right kidney measures 11.6 cm long; left kidney measures 11.9 cm long. No hydronephrosis or nephrolithiasis. No solid masses. Aorta: Visualized aorta is normal in caliber at less than 3 cm. Iliacs: Proximal common iliac arteries are normal in caliber at less than 2.5 cm. IVC: Intrahepatic inferior vena cava is patent. Miscellaneous: No free abdominal fluid. IMPRESSION: Coarse echogenic liver suggesting diffuse hepatocellular disease/fatty infiltration. Please correlate with LFTs. Contracted gallbladder, with suboptimal evaluation. If clinically necessary, consider repeat ultrasound after 8 hour n.p.o. status. Dictated by: Jamarcus Quezada M.D. on 03/16/2020 at 12:44 Approved by: Jamarcus Quezada M.D. on 03/16/2020 at 12:46
== END ==
PROVIDERS: Family Provider Student in an Organized Health Care Education/Training Program; PCP Student in an Organized Health Care Education/Training Program; Referring Provider Student in an Organized Health Care Education/Training Program; Visit Provider Student in an Organized Health Care Education/Training Program
DX: R10.9 Unspecified abdominal pain (principal); R14.0 Abdominal distension (gaseous)
CPT/HCPCS: 76700

== ENCOUNTER → 2020-04-06 12:00 | Outpatient (CLI) | payer OTHER, MEDICAID, SELFPAY ==
--- NOTE | 2020-04-06 | DI.US.S_ITS ---
PROCEDURE: US ABDOMEN LIMITED INDICATIONS: FOLLOW-UP CONTRACTED GALLBLADDER ON U/S OF 20 DAYS AGO TECHNIQUE: Real-time focused scanning was performed of the abdomen, with image documentation. COMPARISON: [facility], , US ABDOMEN COMPLETE, 03/16/2020, 11:09. FINDINGS: Normal appearance of the liver and gallbladder. No biliary dilatation. Normal pancreas. IMPRESSION: Normal appearance of the gallbladder. Dictated by: Remy Billy [facility] Interpreted: Jamarcus Quezada MD on 04/06/2020 at 13:48 Approved by: Jamarcus Quezada M.D. on 04/07/2020 at 12:05
== END ==
PROVIDERS: Family Provider Student in an Organized Health Care Education/Training Program; PCP Student in an Organized Health Care Education/Training Program; Referring Provider Student in an Organized Health Care Education/Training Program; Visit Provider Student in an Organized Health Care Education/Training Program
DX: R10.9 Unspecified abdominal pain (principal); K31.84 Gastroparesis; R14.0 Abdominal distension (gaseous); K59.00 Constipation, unspecified
CPT/HCPCS: 76705

== ENCOUNTER → 2020-04-14 16:38 | Outpatient (CLI) | payer OTHER, MEDICAID, SELFPAY ==
--- NOTE | 2020-04-14 | DI.MG.S_ITS ---
BILATERAL DIGITAL SCREENING MAMMOGRAM 3D/2D WITH CAD: 04/14/2020 CLINICAL: Routine screening. Family history of breast cancer. Comparison is made to exams dated: 01/23/2019 mammogram, 11/01/2017 mammogram, and 10/03/2016 mammogram - [facility]. There are scattered fibroglandular elements in both breasts. Current study was also evaluated with a Computer Aided Detection (CAD) system. No significant masses, calcifications, or other findings are seen in either breast. There has been no significant interval change. IMPRESSION: NEGATIVE There is no mammographic evidence of malignancy. A 1 year screening mammogram is recommended. This exam was interpreted at Station ID: [id number]. NOTE: For mammograms, a report in lay terms will be sent to the patient. Approximately 15% of breast malignancies will not be visualized mammographically. In the management of a palpable breast mass, a negative mammogram must not discourage biopsy of a clinically suspicious lesion. Electronically Signed By: Karthik mcclain/salvador:04/14/2020 17:45:16 letter sent: Normal Exam ACR BI-RADS Category 1: Negative [id number]
== END ==
PROVIDERS: Family Provider Student in an Organized Health Care Education/Training Program; PCP Student in an Organized Health Care Education/Training Program; Referring Provider Student in an Organized Health Care Education/Training Program; Visit Provider Student in an Organized Health Care Education/Training Program
DX: Z12.31 Encounter for screening mammogram for malignant neoplasm of breast (principal); Z80.3 Family history of malignant neoplasm of breast
CPT/HCPCS: 77063; 77067

== ENCOUNTER → 2020-04-25 15:56 | Outpatient (CLI) | payer OTHER, MEDICAID, SELFPAY ==
--- NOTE | 2020-04-25 | DI.MRI.S_ITS ---
PROCEDURE: MRFOOT LT WO CON INDICATIONS: Pain in left foot TECHNIQUE: Noncontrast sagittal T1 spin echo and T2 fast spin echo with fat saturation, long-axis T1 spin echo and T2 fast spin echo with fat saturation, short-axis T1 spin echo and T2 fast spin echo with fat saturation through the forefoot. COMPARISON: [facility], MR, MR ANKLE LT WO CON, 12/27/2015, 16:11. FINDINGS: Image quality: Excellent. Bones and joints: No bone marrow contusions or metatarsal stress fractures. Patient's known intraosseous cysts in lateral and inferior aspect of cuboid is again seen measures up to 8 x 6 x 10 mm in size on the current study, and is not significantly changed from 2016 study. No surrounding edema or cortical erosion. No periosteal reaction. Osteoarthritic changes are noted throughout midfoot and hindfoot joints. No fracture or dislocation. No new intraosseous lesion is seen. Small amount of fluid is noted within tibiotalar and subtalar joints. Soft tissues: The visualized plantar foot muscles demonstrate normal signal and bulk. Visualized flexor and extensor tendons appear intact, without tenosynovitis. The distal insertions of the peroneus brevis and longus tendons appear intact. The principal Lisfranc ligament appears intact. No soft tissue ganglion cysts or bursal fluid collections. Sagittal images demonstrate no evidence for plantar plate tears. Mildly thickened visualized portion of plantar fascia near its calcaneal insertion is seen concerning for low-grade plantar fasciitis. IMPRESSION: 1. 10 x 8 x 6 millimeter cystic structure within lateral portion of cuboid without adjacent marrow edema or periosteal reaction. Overlying cortex is intact. The size of the lesion is not significantly changed from prior study. 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 No new intraosseous lesion is noted. Mild left foot osteoarthritis. 2. Visualized left foot tendons and muscles show no gross signal abnormality. 3. Suggestion of low-grade plantar fasciitis. Dictated by: French Laird M.D. on 04/26/2020 at 8:48 Approved by: French Laird M.D. on 04/26/2020 at 10:16
== END ==
PROVIDERS: Family Provider Student in an Organized Health Care Education/Training Program; PCP Student in an Organized Health Care Education/Training Program; Referring Provider Podiatrist; Visit Provider Podiatrist
DX: M79.672 Pain in left foot (principal); M19.072 Primary osteoarthritis, left ankle and foot; M85.672 Other cyst of bone, left ankle and foot
CPT/HCPCS: 73718

== ENCOUNTER → 2020-05-30 13:40 | Outpatient (CLI) | payer OTHER, MEDICAID, SELFPAY ==
[2020-05-30 14:21] LABS: Add Manual Diff / Slide Review NO; Basophils Absolute Auto 0 /uL (0-100); Basophils Percent Auto 0.3 % (0-2); Eosinophils Absolute Auto 0 /uL (0-450); Eosinophils Percent Auto 0.4 % (2-4); Hematocrit 39.3 % (36-46); Hemoglobin 12.6 g/dL (12.0-16.0); Lymphocytes Absolute Auto 1100 /uL (1100-4500); Lymphocytes Percent Auto 9.7 % (25-40); Mean Corpuscular HGB Conc 32.2 % (30-36); Mean Corpuscular Hemoglobin 29.2 PG (26-34); Mean Corpuscular Volume 90.7 fL (80-100); Monocytes Absolute Auto 500 /uL (0-900); Monocytes Percent Auto 3.9 % (3-14); Neutrophils Absolute Auto 9900 /uL (1500-7000); Neutrophils Percent Auto 85.7 % (50-75); Platelet Count 272 X10^3/uL (150-400); Red Blood Cell Count 4.33 X10^6/uL (4.0-5.2); Red Cell Distribution Width 13.9 % (11.6-14.8); White Blood Cell Count 11.6 X10^3/uL (4.5-11.0)
[2020-05-30 14:34] LABS: Alanine Aminotransferase 18 IU/L (<35); Albumin 3.9 g/dL (3.5-5.0); Albumin Globulin Ratio 1.5 (1.0-2.8); Alkaline Phosphatase 60 U/L (38-126); Aspartate Aminotransferase 22 IU/L (14-36); BUN Creatinine Ratio 17.2 (6-22); Bilirubin Total 0.3 mg/dL (0.2-1.3); Blood Urea Nitrogen 15 mg/dL (7-17); C-Reactive Protein Quant 3.3 mg/dL (<1.0); Calcium 8.7 mg/dL (8.4-10.2); Carbon Dioxide 26 mmol/L (22-32); Chloride 100 mmol/L (98-107); Estimated Glomerular Filt Rate > 60.0 mL/min (>60); Globulin 2.6 g/dL (1.7-4.1); Glucose 99 mg/dL (70-100); HEMOLYSIS < 15 (0-50); Sodium 138 mmol/L (137-145); Total Protein 6.5 g/dL (6.3-8.2)
[2020-05-30 14:45] LABS: Erythrocyte Sedimentation Rate 13 MM/HR (0-20)
== END ==
PROVIDERS: Family Provider Student in an Organized Health Care Education/Training Program; PCP Student in an Organized Health Care Education/Training Program; Referring Provider Nurse Practitioner; Visit Provider Nurse Practitioner
DX: M25.50 Pain in unspecified joint (principal); M06.09 Rheumatoid arthritis without rheumatoid factor, multiple sites; M79.7 Fibromyalgia
CPT/HCPCS: 36415; 80053; 85025; 85651; 86140

== ENCOUNTER → 2020-06-08 10:23 | Outpatient (CLI) | payer OTHER, MEDICAID, SELFPAY ==
--- NOTE | 2020-06-08 11:52 | DI.CT.S_ITS ---
PROCEDURE: CT ABDOMEN PELVIS W CON INDICATIONS: Gastroparesis with bloating TECHNIQUE: After the administration of oral and intravenous contrast, 5 mm thick sections acquired from the diaphragms to the symphysis. 5 mm thick coronal and sagittal reformats were performed. For radiation dose reduction, the following was used: automated exposure control, adjustment of mA and/or kV according to patient size. COMPARISON: [facility], CT, ABDOMEN WITH CONTRAST, 11/08/2015, 15:41. [facility], CT, IVP (ABD & PEL WWO CONTRAST), 11/13/2017, 15:08. [facility], CT, KIDNEY/ URETER/BLADDER, 10/20/2017, 4:31. FINDINGS: Image quality: Excellent. ABDOMEN: Lung bases: Lung bases are clear. Heart size is normal. Solid organs: Liver is normal in size and enhancement. Gallbladder is normal. Biliary system is non-dilated. Pancreas enhances normally. Spleen is normal in size and enhancement. No adrenal nodules. Kidneys are normal in size and enhancement, without hydronephrosis. Peritoneum and bowel: Stomach, small bowel, and colon loops are normal in caliber and wall thickness. There is concentric thickening of distal duodenum and proximal jejunum. Target appearance of short segment of jejunum is likely secondary to transient intussusception. Normal appendix. No free fluid or air. Nodes and vessels: No retroperitoneal or mesenteric adenopathy. Aorta and inferior vena cava are normal in caliber. Miscellaneous: No ventral hernias. PELVIS: Genitourinary: Bladder wall thickness is normal. Uterus and ovaries are normal. No free fluid in the cul-de-sac. Miscellaneous: No inguinal hernias or adenopathy. Bones: No suspicious bony lesions. No vertebral body compression fractures. IMPRESSION: 1. There is concentric thickening of distal duodenum and proximal jejunum, which may be secondary to inflammatory bowel disease or infectious etiology. Dictated by: Kin Jade M.D. on 06/08/2020 at 16:58 Approved by: Kin Jade M.D. on 06/08/2020 at 17:27
== END ==
PROVIDERS: Family Provider Student in an Organized Health Care Education/Training Program; PCP Student in an Organized Health Care Education/Training Program; Referring Provider Student in an Organized Health Care Education/Training Program; Visit Provider Student in an Organized Health Care Education/Training Program
DX: K31.84 Gastroparesis (principal); K59.00 Constipation, unspecified; R10.9 Unspecified abdominal pain; R14.0 Abdominal distension (gaseous)
CPT/HCPCS: 74177; Q9967

== ENCOUNTER → 2020-07-08 15:36 | Outpatient (CLI) | payer OTHER, MEDICAID, SELFPAY ==
--- NOTE | 2020-07-08 | DI.RAD.S_ITS ---
PROCEDURE: XR HAND RT MIN 3V INDICATIONS: ARTHRITITS TECHNIQUE: 3 views of the hand(s) acquired. COMPARISON: [facility], , HAND 3V RIGHT, 05/22/2017, 16:54. FINDINGS: Bones: No fractures or dislocations. Carpal bones are normally aligned. No suspicious bony lesions. No erosions. No appreciable joint space narrowing. Soft tissues: No suspicious soft tissue calcifications. IMPRESSION: No radiographic signs of rheumatoid arthritis. Dictated by: Lindy Santiago M.D. on 07/08/2020 at 16:38 Approved by: Lindy Santiago M.D. on 07/08/2020 at 16:39
--- NOTE | 2020-07-08 | DI.RAD.S_ITS ---
PROCEDURE: XR FOOT RT MIN 3V INDICATIONS: INFLAMMATORY POLYARTHRITIS TECHNIQUE: 3 views of the foot were acquired. COMPARISON: None. FINDINGS: Bones: No fractures or dislocations. No suspicious bony lesions. Calcaneal spur is present. Minimal scattered DIP degenerative narrowing is present. No erosions. Soft tissues: No tibiotalar joint effusion. Achilles tendon appears normal. IMPRESSION: Calcaneal spur. Dictated by: Lindy Santiago M.D. on 07/08/2020 at 16:37 Approved by: Lindy Santiago M.D. on 07/08/2020 at 16:37
--- NOTE | 2020-07-08 | DI.RAD.S_ITS ---
PROCEDURE: XR FOOT LT MIN 3V INDICATIONS: INFLAMMATORY POLYARTHRITIS TECHNIQUE: 3 views of the foot were acquired. COMPARISON: None. FINDINGS: Bones: No fractures or dislocations. No suspicious bony lesions. Calcaneal spur is present. No erosions. Questionable minimal early DIP degenerative narrowing. Soft tissues: No tibiotalar joint effusion. Achilles tendon appears normal. IMPRESSION: Calcaneal spur. Dictated by: Lindy Santiago M.D. on 07/08/2020 at 16:36 Approved by: Lindy Santiago M.D. on 07/08/2020 at 16:37
--- NOTE | 2020-07-08 | DI.RAD.S_ITS ---
PROCEDURE: XR HAND LT MIN 3V INDICATIONS: RHEUMATOID ARTHRITIS TECHNIQUE: 3 views of the hand(s) acquired. COMPARISON: [facility], , HAND 3V RIGHT, 05/22/2017, 16:54. FINDINGS: Bones: No fractures or dislocations. Carpal bones are normally aligned. No suspicious bony lesions. No erosions are identified. No appreciable joint space narrowing. Soft tissues: No suspicious soft tissue calcifications. IMPRESSION: No radiographic signs of rheumatoid arthritis. Dictated by: Lindy Santiago M.D. on 07/08/2020 at 16:38 Approved by: Lindy Santiago M.D. on 07/08/2020 at 16:38
[2020-07-08 17:16] LABS: Creatine Kinase 50 U/L (30-135)
[2020-07-08 17:26] LABS: Rheumatoid Factor < 8.6 IU/mL (<12.0)
[2020-07-12 15:36] LABS: Aldolase 4.1 U/L (3.3-10.3)
[2020-07-12 20:48] LABS: CCP Antibodies IgG/IgA 15 units (0-19)
== END ==
PROVIDERS: Family Provider Student in an Organized Health Care Education/Training Program; PCP Student in an Organized Health Care Education/Training Program; Referring Provider Internal Medicine Rheumatology; Visit Provider Internal Medicine Rheumatology
DX: M06.4 Inflammatory polyarthropathy (principal); M79.10 Myalgia, unspecified site; M77.32 Calcaneal spur, left foot
CPT/HCPCS: 36415; 73130; 73630; 82085; 82550; 83516; 86200; 86225; 86235; 86430

== ENCOUNTER → 2020-07-20 12:12 | Outpatient (CLI) | payer OTHER, MEDICAID, SELFPAY ==
--- NOTE | 2020-07-20 12:25 | DI.RAD.S_ITS ---
PROCEDURE: XR KUB INDICATIONS: AGILE PATENCY PILL. 28.5 HOURS IN TECHNIQUE: One view of the abdomen acquired. COMPARISON: [facility], CT, CT ABDOMEN PELVIS W CON, 06/08/2020, 12:04. FINDINGS: Surgical changes and devices: None. Bowel: Bowel gas pattern is normal. Note is made of what appears to be the agile patency capsule superimposed on the inferior 3rd of the left sacroiliac joint. Soft tissues: No suspicious abdominal calcifications. Visualized solid organ contours appear normal in size. Bones: No suspicious bony lesions. IMPRESSION: Bowel patency capsule overlying the inferior left sacroiliac joint at this time, presumably within the descending colon at its junction with the sigmoid colon posteriorly. Dictated by: Caio Chester M.D. on 07/20/2020 at 14:28 Approved by: Caio Chester M.D. on 07/20/2020 at 14:32
== END ==
PROVIDERS: Family Provider Student in an Organized Health Care Education/Training Program; PCP Student in an Organized Health Care Education/Training Program; Referring Provider Nurse Practitioner; Visit Provider Nurse Practitioner
DX: T18.3XXA Foreign body in small intestine, initial encounter (principal)
CPT/HCPCS: 74018

== ENCOUNTER → 2020-08-25 12:57 | Outpatient (CLI) | payer OTHER, MEDICAID, SELFPAY | PROVIDERS: Family Provider Student in an Organized Health Care Education/Training Program; PCP Nurse Practitioner Family; Referring Provider Obstetrics & Gynecology; Visit Provider Obstetrics & Gynecology | DX: Z78.0 Asymptomatic menopausal state (principal) | CPT/HCPCS: 36415; 83001 ==

== ENCOUNTER → 2020-09-14 13:02 | Outpatient (CLI) | payer OTHER, MEDICAID, SELFPAY ==
--- NOTE | 2020-09-14 13:03 | DI.CT.S_ITS ---
PROCEDURE: CT ABDOMEN PELVIS W CON INDICATIONS: intassusception jejunum on prior film.r/o persistence/abn TECHNIQUE: After the administration of intravenous contrast, 5 mm thick sections acquired from the diaphragm to the symphysis. 5 mm coronal and sagittal reformats were acquired. For radiation dose reduction, the following was used: automated exposure control, adjustment of mA and/or kV according to patient size. COMPARISON: [facility], CT, CT ABDOMEN PELVIS W CON, 06/08/2020, 12:04. FINDINGS: Image quality: Excellent. ABDOMEN: Lung bases: Lung bases are clear. Heart size is normal. Solid organs: Liver is normal in size and enhancement. Gallbladder is unremarkable . Biliary system is non dilated. Pancreas enhances normally. Spleen is normal in size and enhancement. No adrenal nodules. Kidneys demonstrate normal size and enhancement, without hydronephrosis. Peritoneum and bowel: Bowel loops demonstrate normal wall thickness and caliber. The appendix is thin walled. Of note, the previously described intussusceptions on the comparison CT dated June 08, 2020 is no longer visualized. No free fluid or air. Nodes and vessels: No retroperitoneal or mesenteric adenopathy by size criteria. Aorta and inferior vena cava are normal in size. Miscellaneous: No ventral hernias. PELVIS: Genitourinary: Bladder wall thickness is normal. The uterus is grossly unremarkable. Miscellaneous: No inguinal hernias or adenopathy. Bones: No suspicious bony lesions. No vertebral body compression fractures. IMPRESSION: Previously described intussusceptions within the jejunum no longer visualized. No acute intra-abdominal findings. Normal appendix. Dictated by: Riddhi Rincon M.D. on 09/14/2020 at 16:24 Approved by: Riddhi Rincon M.D. on 09/14/2020 at 16:27
== END ==
PROVIDERS: Family Provider Student in an Organized Health Care Education/Training Program; PCP Nurse Practitioner Family; Referring Provider Specialist; Visit Provider Specialist
DX: K56.1 Intussusception (principal)
CPT/HCPCS: 74177

== ENCOUNTER → 2020-09-26 16:01 | Outpatient (CLI) | payer OTHER, MEDICAID, SELFPAY ==
[2020-09-26 16:46] LABS: Add Manual Diff / Slide Review NO; Basophils Absolute Auto 100 /uL (0-100); Basophils Percent Auto 0.9 % (0-2); Eosinophils Absolute Auto 1000 /uL (0-450); Eosinophils Percent Auto 12.8 % (2-4); Hematocrit 36.7 % (36-46); Hemoglobin 11.9 g/dL (12.0-16.0); Lymphocytes Absolute Auto 2000 /uL (1100-4500); Lymphocytes Percent Auto 26.4 % (25-40); Mean Corpuscular HGB Conc 32.6 % (30-36); Mean Corpuscular Hemoglobin 28.9 PG (26-34); Mean Corpuscular Volume 88.8 fL (80-100); Monocytes Absolute Auto 600 /uL (0-900); Monocytes Percent Auto 8.4 % (3-14); Neutrophils Absolute Auto 3900 /uL (1500-7000); Neutrophils Percent Auto 51.5 % (50-75); Platelet Count 268 X10^3/uL (150-400); Red Blood Cell Count 4.13 X10^6/uL (4.0-5.2); Red Cell Distribution Width 13.5 % (11.6-14.8); White Blood Cell Count 7.6 X10^3/uL (4.5-11.0)
[2020-09-26 16:58] LABS: Alanine Aminotransferase 85 IU/L (<35); Albumin Globulin Ratio 1.5 (1.0-2.8); Alkaline Phosphatase 101 U/L (38-126); Aspartate Aminotransferase 77 IU/L (14-36); BUN Creatinine Ratio 20.3 (6-22); Blood Urea Nitrogen 16 mg/dL (7-17); C-Reactive Protein Quant 1.5 mg/dL (<1.0); Calcium 8.8 mg/dL (8.4-10.2); Carbon Dioxide 30 mmol/L (22-32); Chloride 106 mmol/L (98-107); Estimated Glomerular Filt Rate > 60.0 mL/min (>60); Globulin 2.7 g/dL (1.7-4.1); Glucose 106 mg/dL (70-100); HEMOLYSIS < 15 (0-50); Potassium 4.2 mmol/L (3.4-5.1); Sodium 137 mmol/L (137-145); Total Protein 6.7 g/dL (6.3-8.2)
[2020-09-26 17:05] LABS: Bilirubin Total < 0.1 mg/dL (0.2-1.3)
[2020-09-26 18:40] LABS: Erythrocyte Sedimentation Rate 28 MM/HR (0-20)
== END ==
PROVIDERS: Family Provider Student in an Organized Health Care Education/Training Program; PCP Nurse Practitioner Family; Referring Provider Nurse Practitioner; Visit Provider Nurse Practitioner
DX: M06.4 Inflammatory polyarthropathy (principal); M06.09 Rheumatoid arthritis without rheumatoid factor, multiple sites; Z79.52 Long term (current) use of systemic steroids
CPT/HCPCS: 36415; 80053; 85025; 85651; 86140

== ENCOUNTER 2020-10-03 12:26 | Emergency (ER) | payer OTHER, MEDICAID, SELFPAY ==
[2020-10-03 12:35] VITALS: BP 137/82; PULSE 91; RESP 14; TEMP 36.8; O2SAT 99; BMI 30.7
[2020-10-03 13:11] LABS: COVID19 -Nasal RAPID Negative (Negative)
[2020-10-03 13:59] VITALS: BP 139/71; PULSE 83; RESP 15; O2SAT 95
--- NOTE | 2020-10-03 14:00 | ED_ITS ---
HPI - URI/Sore Throat <Shirin Mojicamer, [employer] ADMINISTRATOR-BC - Last Filed: 10/03/20 14:10> General Chief Complaint: Upper Respiratory Symptoms Stated Complaint: Light Headed, Cough, Chills, Aches Time Seen by Provider: 10/03/20 12:29 Source: patient Mode of arrival: Ambulatory Limitations: no limitations History of Present Illness HPI Narrative: The patient is a 54-year-old female former smoker with history of gastroparesis who presents with a chief complaint headaches, muscle aches chills sinus pressure and dizziness upon standing ongoing for the past 2-3 weeks. She states that she is having sinus headache, severe sinus headache 10/10 on her right side, radiating to her jaw and teeth. It is worse when she leans forward. She has been using [id number] medications as needed and able. She feels severe pressure in her ears. No fevers, muscle aches and chills. She states that she had a negative coronavirus test on Saturday. No known exposures. She states that she has a very occasional dry cough, no chest pain or shortness of breath. She states that she feels woozy with change of position at times. She denies any recent antibiotic use or recent sinus infections as she had sinus surgery several years ago. Related Data Home Medications Medication Instructions Recorded Confirmed rizatriptan [Maxalt] 10 mg PO Q2-4H PRN #0 05/31/11 08/17/20 cholecalciferol (vitamin D3) 25 1,000 unit PO DAILY 04/29/18 08/17/20 mcg (1,000 unit) capsule diphenhydramine 25 1 tab PO BEDTIME PRN 04/29/18 08/17/20 mg-acetaminophen 500 mg tablet levothyroxine 100 mcg tablet 100 mcg PO DAILY 04/29/18 08/17/20 methylprednisolone 2 mg tablet 4 mg PO DAILY 01/23/19 08/17/20 diphenhydramine-acetaminophen PO BEDTIME 08/19/19 08/17/20 lactobacillus combination no.8 PO DAILY 10/20/19 08/17/20 mecobalamin (vitamin B12) 1,000 1,000 mcg SL DAILY 10/20/19 08/17/20 mcg disintegrating tablet,sublingual pantoprazole 20 mg tablet,delayed 20 mg PO DAILY 10/20/19 08/17/20 release melatonin 10 mg capsule 5 mg PO BEDTIME cap 02/03/20 08/17/20 polyethylene glycol 3350 17 gram 17 gram PO DAILY PRN 02/03/20 08/17/20 oral powder packet duloxetine 30 mg capsule,delayed 30 mg PO DAILY 08/15/20 08/17/20 release Previous Rx's Medication Instructions Recorded estradiol 0.5 mg tablet 0.5 mg PO DAILY 30 Days #30 tab 08/26/20 progesterone micronized 100 mg 100 mg PO DAILY #30 cap 08/31/20 capsule amoxicillin-pot clavulanate 1 tab PO BID #20 tab 10/03/20 [Augmentin] Allergies Allergy/AdvReac Type Severity Reaction Status Date / Time Sulfa (Sulfonamide Allergy Severe HIVES Verified 10/03/20 12:37 Antibiotics) [SULFA (SULFONAMIDE ANTIBIOTICS)] codeine [CODEINE] Allergy Mild NAUSEA Verified 10/03/20 12:37 SENSITIVE TO NARCOTICS Allergy Severe NAUSEA Uncoded 08/17/20 13:29 Review of Systems <BRISEIDA Perez - Last Filed: 10/03/20 14:10> Review of Systems Narrative: GENERAL: See HPI HEENT: See HPI RESPIRATORY: Denies dyspnea, cough, wheezing, hemoptysis, sputum. CARDIOVASCULAR: Denies chest pain, palpitations, orthopnea, edema, GASTROINTESTINAL: Denies nausea, vomiting, abdominal pain, diarrhea, constipation, melena. : Denies dysuria, frequency, incontinence, hematuria, urinary retention. MUSCULOSKELETAL: denies weakness, joint pain, or bony pain SKIN: Denies rash, skin lesions, or other NEUROLOGIC: Denies weakness, headache, numbness, change in speech, confusion, seizures, incoordination. PSYCHIATRIC: No concerning psychosocial issues. 12 point review of systems is negative except for those stated above Patient History <BRISEIDA Perez - Last Filed: 10/03/20 14:10> Medical History Arthritis Asthma Bruises easily Constipation Fibromyalgia Former smoker Gastroparesis Gastroparesis Greater trochanteric bursitis of right hip Heart murmur History of headache History of pneumonia Low blood sugar Malignant hyperthermia (~12/2014) Migraines Osteoarthritis Piriformis syndrome Sacral dysfunction Sinus drainage Tear of acetabular labrum Surgical History History of foot surgery (01/2016) History of third molar tooth extraction (1984) History of thyroidectomy (12/21/14) Status post endometrial ablation (12/21/14) Status post laparoscopy (1982) Status post laparoscopy (2001) Family History Mother Stroke Grandmother Cancer Father Heart disease Grandfather Heart disease Grandfather Stomach cancer Social History marital status: unknown household members: none occupational status: employed Smoking Status: Former smoker alcohol intake: current substance use type: does not use Smoking Status: Former smoker alcohol intake frequency: holidays/special occasions only Substance Use Type: does not use Exam <BRISEIDA Perez - Last Filed: 10/03/20 14:10> Narrative Exam Narrative: GENERAL: This is a well-nourished, well-developed patient, in no acute distress HEAD: Atraumatic. Normocephalic. No temporal or scalp tenderness. Sinus tenderness to palpation EYES: Pupils equal round and reactive. Extraocular motions intact. No scleral icterus. No injection or drainage. ENT: Nose without bleeding, purulent drainage or septal hematoma. Throat without erythema, tonsillar hypertrophy or exudate. Uvula midline. Airway patent. Cobblestoning noted. Bilateral TMs pearly [place] though pressure noted NECK: Trachea midline. No JVD or lymphadenopathy. Supple, nontender, no meningeal signs. CARDIOVASCULAR: Regular rate and rhythm RESPIRATORY: Clear to auscultation. Breath sounds equal bilaterally. No wheezes, rales, or rhonchi. No dry cough during exam. Occasional increased respiratory effort. No accessory muscle use. GASTROINTESTINAL: Abdomen soft, non-tender, nondistended. No hepato- splenomegaly, or palpable masses. No guarding. EXTREMITIES: No clubbing, cyanosis, or edema. No joint tenderness, effusion, or edema noted. BACK: Nontender without deformity or crepitance. No flank tenderness. NEURO: AOx3. SKIN: No rash or erythema on visible skin Initial Vital Signs Initial Vital Signs: Vital Signs Temperature 98.2 F 10/03/20 12:35 Pulse Rate 91 H 10/03/20 12:35 Respiratory Rate 14 10/03/20 12:35 Blood Pressure 137/82 10/03/20 12:35 Pulse Oximetry 99 10/03/20 12:35 <Shirin Pierce DO - Last Filed: 10/03/20 18:40> Initial Vital Signs Initial Vital Signs: Vital Signs Temperature 98.2 F 10/03/20 12:35 Pulse Rate 91 H 10/03/20 12:35 Respiratory Rate 14 10/03/20 12:35 Blood Pressure 137/82 10/03/20 12:35 Pulse Oximetry 99 10/03/20 12:35 Scores <BRISEIDA Perez - Last Filed: 10/03/20 14:10> GCS Jean coma scale eye opening: Spontaneous [place] coma scale verbal response: Orientated [place] coma scale motor response: Obey commands Jean coma scale total score: 15 Course <BRISEIDA Perez - Last Filed: 10/03/20 14:10> Orders Ordered: ED Orders 10/03/20 12:48 COVID19 Stat Vital Signs Vital signs: Vital Signs - 8 hr 10/03/20 12:35 10/03/20 13:59 Temperature 98.2 F Pulse Rate 91 H 83 Respiratory Rate 14 15 Blood Pressure 137/82 139/71 Pulse Oximetry 99 95 <Shirin Pierce DO - Last Filed: 10/03/20 18:40> Orders Ordered: ED Orders 10/03/20 12:48 COVID19 Stat Vital Signs Vital signs: Vital Signs - 8 hr 10/03/20 12:35 10/03/20 13:59 Temperature 98.2 F Pulse Rate 91 H 83 Respiratory Rate 14 15 Blood Pressure 137/82 139/71 Pulse Oximetry 99 95 MDM - URI/Sore Throat <BRISEIDA Perez - Last Filed: 10/03/20 14:10> Lab Data Labs: Lab Results 10/03/20 Range/Units 12:48 SARS-CoV-2 (PCR) Negative (Negative) MDM Narrative Medical decision making narrative: The patient is a 54-year-old female presents with a chief complaint of weeks of sinus pain, occasional lightheadedness and ear pressure. She appears hemodynamically stable and has an overall benign e xam, otherwise has signs of a sinus infection. Given that she has had the symptoms for a prolonged period of time despite [id number] measures, will treat for acute bacterial sinusitis with Augmentin. I did encourage continued sinus rinse, Flonase etcetera. Encouraged rest and pushing fluids. Encouraged follow-up with primary care provider in the next few days. Discussed come back to the ER for acute concerns such as chest pain shortness of breath etcetera Patient has no questions or concerns upon discharge and states understanding of return precautions as well as follow-up care. <Shirin Pierce, DO - Last Filed: 10/03/20 18:40> Lab Data Labs: Lab Results 10/03/20 Range/Units 12:48 SARS-CoV-2 (PCR) Negative (Negative) Discharge Plan Departure Patient Disposition: Home Clinical Impression: Sinusitis Qualifiers: Sinusitis location: unspecified location Chronicity: acute Recurrence: non- recurrent Qualified Code(s): J01.90 - Acute sinusitis, unspecified Instructions: Sinusitis (Alternative Therapy), DI for Sinusitis Activity Restrictions/Additional Instructions: Thank you for trusting us with your care today As discussed, your coronavirus test resulted negative. Please continue to wash your hands cover your cough, wear a mask etcetera However your exam is concerning for sinus infection I sent a prescription of an antibiotic to [facility] in [place] Please take this with probiotic or yogurt to help prevent antibiotic related side effects As discussed, please continue to use Flonase, D congestion , NeilMed sinus rinse etcetera please follow-up with primary care provider in the next few days. Please come back to emergency department for any acute concerns such as concern of heart attack stroke passing out etcetera Prescriptions: New amoxicillin-pot clavulanate [Augmentin] 875-125 mg tablet 1 tab PO BID Qty: 20 RF: 0 No Action rizatriptan [Maxalt] 10 mg Tablet 10 mg PO Q2-4H PRN (Reason: Migraine Headache) Qty: 0 RF: 0 estradiol [Estrace] 0.5 mg tablet 0.5 mg PO DAILY 30 Days Qty: 30 RF: 11 progesterone micronized [Prometrium] 100 mg capsule 100 mg PO DAILY Qty: 30 RF: 11 levothyroxine 100 mcg tablet 100 mcg PO DAILY RF: 0 cholecalciferol (vitamin D3) 1,000 unit capsule 1,000 unit PO DAILY RF: 0 diphenhydramine-acetaminophen [Tylenol PM Extra Strength] 25-500 mg tablet 1 tab PO BEDTIME PRN (Reason: Sleep) RF: 0 melatonin 10 mg capsule 5 mg PO BEDTIME RF: 0 methylprednisolone 2 mg tablet 4 mg PO DAILY RF: 0 duloxetine [Cymbalta] 30 mg capsule,delayed release(DR/EC) 30 mg PO DAILY RF: 0 diphenhydramine-acetaminophen PO BEDTIME RF: 0 polyethylene glycol 3350 [Miralax] 17 gram powder in packet 17 gram PO DAILY PRNRF: 0 pantoprazole 20 mg tablet,delayed release (DR/EC) 20 mg PO DAILY RF: 0 lactobacillus combination no.8 PO DAILY RF: 0 mecobalamin (vitamin B12) 1,000 mcg tablet,disintegrating 1,000 mcg SL DAILY RF: 0 Referrals: Alondra Rose ARNP [Primary Care Provider] - <Shirin Pierce DO - Last Filed: 10/03/20 18:40> Cosign ED Attending Cosrayoature Attestation: I was immediately available in the department for consultation. Documentation has been reviewed.
== END 2020-10-03 14:09 | disposition home or self-care (01) ==
PROVIDERS: Emergency Provider Nurse Practitioner Family; Family Provider Student in an Organized Health Care Education/Training Program; PCP Nurse Practitioner Family
DX: J01.90 Acute sinusitis, unspecified (principal); R42 Dizziness and giddiness; R51.9 Headache, unspecified; Z20.822 Contact with and (suspected) exposure to COVID-19
CPT/HCPCS: 87635; 99281; 99282; C9803

== ENCOUNTER → 2020-11-02 11:10 | Outpatient (CLI) | payer OTHER, MEDICAID, SELFPAY ==
--- NOTE | 2020-11-02 | DI.US.S_ITS ---
PROCEDURE: US ABDOMEN LIMITED INDICATIONS: ABNORMAL LIVER ENZYMES TECHNIQUE: Real-time focused scanning was performed of the abdomen, with image documentation. COMPARISON: None. FINDINGS: Diffuse mild to moderate hepatic steatosis. No focal hepatic mass. No intrahepatic or extrahepatic biliary ductal dilatation. The common hepatic duct and common bile duct measure approximately 3 millimeters and 6 millimeters at the stefanie hepatis, respectively. Normally distended gallbladder without wall thickening or pericholecystic fluid. No sludge or stone identified. Proximal visualized portions of the pancreas are within normal limits. Included portions of the right kidney are within normal limits. IMPRESSION: Mild to moderate hepatic steatosis. Dictated by: Roberto Diaz M.D. on 11/02/2020 at 12:24 Approved by: Roberto Diaz M.D. on 11/02/2020 at 12:25
[2020-11-02 13:05] LABS: HEMOLYSIS < 15 (0-50); Iron 36 ug/dL (37-170)
[2020-11-02 13:18] LABS: Percent Iron Saturation 10 % (15-50); Total Iron Binding Capacity 368 ug/dL (265-497); Transferrin 282 mg/dL (206-381)
[2020-11-02 13:23] LABS: Free T4, Direct Thyroxine 1.45 ng/dL (0.78-2.19)
[2020-11-02 13:37] LABS: Thyroid Stimulating Hormone 0.061 uIU/mL (0.47-4.68)
[2020-11-02 16:30] LABS: Estradiol, Total 47.9 pg/mL
[2020-11-07 12:28] LABS: Percent Free Testosterone 1.25 % (0.50-2.80); Testosterone Free 0.08 ng/dL (0.10-0.85); Testosterone Total 6.2 ng/dL (.)
== END ==
PROVIDERS: Obstetrics & Gynecology; Family Provider Student in an Organized Health Care Education/Training Program; PCP Nurse Practitioner Family; Referring Provider Nurse Practitioner Family; Visit Provider Nurse Practitioner Family
DX: R74.8 Abnormal levels of other serum enzymes (principal); K76.0 Fatty (change of) liver, not elsewhere classified; L65.9 Nonscarring hair loss, unspecified; L85.3 Xerosis cutis
CPT/HCPCS: 36415; 76700; 76705; 82670; 83540; 83550; 84402; 84403; 84439; 84443

== ENCOUNTER → 2020-11-11 13:58 | Outpatient (CLI) | payer OTHER, MEDICAID, SELFPAY ==
--- NOTE | 2020-11-11 | DI.CT.S_ITS ---
PROCEDURE: CT SINUS SCREEN WO CON INDICATIONS: Chronic sinusitis, unspecified TECHNIQUE: Noncontrast 3.0 mm axial images acquired from the frontal sinuses to the mid-sella, with coronal and sagittal reformats. For radiation dose reduction, the following was used: automated exposure control, adjustment of mA and/or kV according to patient size. COMPARISON: [facility], CT, HEAD WITHOUT CONTRAST, 05/14/2017, 17:15. FINDINGS: Image quality: Excellent. Maxillary Sinuses: No bony remodeling or destruction. Sinuses are clear. Ethmoid Air Cells: No bony remodeling or destruction. Sinuses are clear. Sphenoid Sinuses: No bony remodeling or destruction. Moderate mucosal thickening is seen within the right sphenoid sinus. Frontal Sinuses: No bony remodeling or destruction. Sinuses are clear. Ostiomeatal Complexes: The right uncinate process is not seen and is presumed to have been previously removed. The left ostiomeatal complex is narrowed, with Jonah cells seen. Miscellaneous: Visualized intra-orbital contents are normal. No alan bullosa or paradoxical turbinate curvature. There is mild rightward nasal septal deviation. IMPRESSION: Focal moderate mucosal thickening is seen within the right sphenoid sinus. Constitutionally narrowed left ostiomeatal complex, with Jonah cells seen. Presumed prior removal of the right uncinate process. Dictated by: Dangelo Reed M.D. on 11/11/2020 at 14:52 Approved by: Dangelo Reed M.D. on 11/11/2020 at 14:54
== END ==
PROVIDERS: Family Provider Student in an Organized Health Care Education/Training Program; PCP Nurse Practitioner Family; Referring Provider Nurse Practitioner Family; Visit Provider Nurse Practitioner Family
DX: J32.9 Chronic sinusitis, unspecified (principal); J32.3 Chronic sphenoidal sinusitis; J34.2 Deviated nasal septum
CPT/HCPCS: 70486

== ENCOUNTER → 2020-12-20 14:33 | Outpatient (CLI) | payer OTHER, MEDICAID, SELFPAY ==
[2020-12-20 16:29] LABS: Testosterone < 4.9 ng/dL (5.71-77.0)
[2020-12-20 17:14] LABS: HEMOLYSIS < 15 (0-50)
[2020-12-20 17:31] LABS: Total Iron Binding Capacity 373 ug/dL (265-497); Transferrin 311 mg/dL (206-381)
[2020-12-20 17:38] LABS: Free T4, Direct Thyroxine 0.91 ng/dL (0.78-2.19)
[2020-12-20 17:44] LABS: Estradiol, Total 50.4 pg/mL
[2020-12-20 17:52] LABS: Thyroid Stimulating Hormone 0.045 uIU/mL (0.47-4.68)
[2020-12-21 16:22] LABS: Iron 21 ug/dL (37-170); Percent Iron Saturation 6 % (15-50)
== END ==
PROVIDERS: Obstetrics & Gynecology; Family Provider Student in an Organized Health Care Education/Training Program; PCP Nurse Practitioner Family; Referring Provider Internal Medicine Endocrinology, Diabetes & Metabolism; Visit Provider Internal Medicine Endocrinology, Diabetes & Metabolism
DX: E89.0 Postprocedural hypothyroidism (principal); E61.1 Iron deficiency; L65.9 Nonscarring hair loss, unspecified; L85.3 Xerosis cutis
CPT/HCPCS: 36415; 82670; 83540; 83550; 84403; 84439; 84443

== ENCOUNTER → 2020-12-30 13:01 | Outpatient (CLI) | payer OTHER, MEDICAID, SELFPAY ==
[2020-12-30 13:27] LABS: Add Manual Diff / Slide Review NO; Basophils Absolute Auto 100 /uL (0-100); Basophils Percent Auto 0.8 % (0-2); Eosinophils Absolute Auto 0 /uL (0-450); Hematocrit 34.8 % (36-46); Hemoglobin 11.1 g/dL (12.0-16.0); Lymphocytes Absolute Auto 600 /uL (1100-4500); Lymphocytes Percent Auto 5.9 % (25-40); Mean Corpuscular HGB Conc 31.8 % (30-36); Mean Corpuscular Hemoglobin 27.8 PG (26-34); Mean Corpuscular Volume 87.4 fL (80-100); Monocytes Absolute Auto 100 /uL (0-900); Neutrophils Absolute Auto 10100 /uL (1500-7000); Neutrophils Percent Auto 92.3 % (50-75); Platelet Count 336 X10^3/uL (150-400); Red Blood Cell Count 3.98 X10^6/uL (4.0-5.2); Red Cell Distribution Width 14.7 % (11.6-14.8); White Blood Cell Count 10.9 X10^3/uL (4.5-11.0)
[2020-12-30 13:41] LABS: Alanine Aminotransferase 20 IU/L (<35); Albumin 4.3 g/dL (3.5-5.0); Albumin Globulin Ratio 1.5 (1.0-2.8); Alkaline Phosphatase 71 U/L (38-126); Aspartate Aminotransferase 20 IU/L (14-36); BUN Creatinine Ratio 21.7 (6-22); Bilirubin Total 0.3 mg/dL (0.2-1.3); Blood Urea Nitrogen 18 mg/dL (7-17); C-Reactive Protein Quant 0.7 mg/dL (<1.0); Calcium 9.3 mg/dL (8.4-10.2); Carbon Dioxide 27 mmol/L (22-32); Chloride 103 mmol/L (98-107); Estimated Glomerular Filt Rate > 60.0 mL/min (>60); Globulin 2.8 g/dL (1.7-4.1); Glucose 171 mg/dL (70-100); HEMOLYSIS < 15 (0-50); Potassium 4.3 mmol/L (3.4-5.1); Sodium 137 mmol/L (137-145); Total Protein 7.1 g/dL (6.3-8.2)
[2020-12-30 13:42] LABS: Rheumatoid Factor < 8.6 IU/mL (<12.0)
[2020-12-30 13:47] LABS: Erythrocyte Sedimentation Rate 14 MM/HR (0-20)
[2020-12-31 07:36] LABS: Complement C3 134 mg/dL (82-167)
[2020-12-31 14:07] LABS: DNA (DS) Antibody <1 IU/mL (0-9)
[2021-01-01 13:08] LABS: ANA Screen, IFA Negative (.)
[2021-01-02 13:09] LABS: Cytoplasmic C-ANCA <1:20 titer (Neg:<1:20); Perinuclear P-ANCA <1:20 titer (Neg:<1:20)
[2021-01-02 20:38] LABS: CCP Antibodies IgG/IgA 24 units (0-19)
== END ==
PROVIDERS: Family Provider Student in an Organized Health Care Education/Training Program; PCP Nurse Practitioner Family; Referring Provider Internal Medicine Rheumatology; Visit Provider Internal Medicine Rheumatology
DX: R51.9 Headache, unspecified (principal)
CPT/HCPCS: 36415; 80053; 85025; 85651; 86038; 86140; 86160; 86200; 86225; 86256; 86430

== ENCOUNTER → 2021-01-16 16:21 | Outpatient (CLI) | payer OTHER, MEDICAID, SELFPAY ==
--- NOTE | 2021-01-16 16:23 | DI.MRI.S_ITS ---
PROCEDURE: MR HEAD/BRAIN WO/W CON INDICATIONS: Headache, unspecified TECHNIQUE: Noncontrast axial T1 spin echo, axial T2 fast spin echo, sagittal and axial FLAIR, coronal T2 fast spin echo, axial gradient echo, axial diffusion and ADC through the brain. After the administration of contrast, axial and coronal 3D VIBE or T1 spin echo with fat saturation through the brain. COMPARISON: None. FINDINGS: Image quality: Excellent. CSF Spaces: Basal cisterns are patent. No extra-axial fluid collections. Ventricles are normal in size and shape. Brain: No midline shift. No intracranial bleeds or masses. No abnormal intracranial enhancement. The brainstem appears normal. Diffusion-weighted images demonstrate no acute ischemic insults. No chronic ischemic insults. Normal intravascular flow voids are present. Skull and face: Calvarial marrow is normal in signal. Orbits appear normal. Sinuses: Sinuses and mastoids appear clear. IMPRESSION: 1. Negative brain MRI. No explanation for headache. Dictated by: Ange Castellanos M.D. on 01/16/2021 at 17:07 Approved by: Ange Castellanos M.D. on 01/16/2021 at 17:07
== END ==
PROVIDERS: Family Provider Student in an Organized Health Care Education/Training Program; PCP Nurse Practitioner Family; Referring Provider Psychiatry & Neurology Neuromuscular Medicine; Visit Provider Psychiatry & Neurology Neuromuscular Medicine
DX: R51.9 Headache, unspecified (principal)
CPT/HCPCS: 70553

== ENCOUNTER → 2021-02-20 14:14 | Outpatient (CLI) | payer OTHER, MEDICAID, SELFPAY ==
[2021-02-20 16:15] LABS: HEMOLYSIS < 15 (0-50); Iron 76 ug/dL (37-170)
[2021-02-20 16:25] LABS: Percent Iron Saturation 17 % (15-50); Total Iron Binding Capacity 443 ug/dL (265-497); Transferrin 372 mg/dL (206-381)
[2021-02-20 16:34] LABS: Free T4, Direct Thyroxine 0.98 ng/dL (0.78-2.19)
[2021-02-20 16:35] LABS: Progesterone, Total 0.12 ng/mL
[2021-02-20 16:47] LABS: Thyroid Stimulating Hormone 0.076 uIU/mL (0.47-4.68)
[2021-02-20 16:51] LABS: Estradiol, Total 17.5 pg/mL
== END ==
PROVIDERS: Family Provider Student in an Organized Health Care Education/Training Program; PCP Nurse Practitioner Family; Referring Provider Obstetrics & Gynecology; Visit Provider Internal Medicine Endocrinology, Diabetes & Metabolism
DX: E89.0 Postprocedural hypothyroidism (principal); E61.1 Iron deficiency; L65.9 Nonscarring hair loss, unspecified
CPT/HCPCS: 36415; 82670; 83540; 83550; 84144; 84439; 84443

== ENCOUNTER 2021-03-25 22:26 | Emergency (ER) | payer OTHER, MEDICAID, SELFPAY ==
[2021-03-25 22:45] VITALS: BP 140/80; PULSE 124; RESP 15; TEMP 37.2; O2SAT 100; BMI 32.8
--- NOTE | 2021-03-25 23:10 | ED_ITS ---
HPI - General Adult General Chief complaint: Abdominal Pain Stated complaint: STOMACHE AND PACK PAIN/NAUSEA Time Seen by Provider: 03/25/21 22:56 Source: patient Mode of arrival: Ambulatory Limitations: no limitations History of Present Illness HPI narrative: Patient is a 55-year-old female who has had issues with c onstipation in the past. For the past several weeks she has had which she states is worsening of her constipation. Today she started noticing some nausea but no vomiting. Has having back discomfort also abdominal bloating. No fevers. Did drink some Mag citrate prior to arrival. Related Data Home Medications Medication Instructions Recorded Confirmed rizatriptan 10 mg tablet (Maxalt) 10 mg PO Q2-4H PRN #0 05/31/11 08/17/20 cholecalciferol (vitamin D3) 25 1,000 unit PO DAILY 04/29/18 08/17/20 mcg (1,000 unit) capsule diphenhydramine 25 1 tab PO BEDTIME PRN 04/29/18 08/17/20 mg-acetaminophen 500 mg tablet (Tylenol PM Extra Strength) levothyroxine 100 mcg tablet 100 mcg PO DAILY 04/29/18 08/17/20 methylprednisolone 2 mg tablet 4 mg PO DAILY 01/23/19 08/17/20 diphenhydramine-acetaminophen PO BEDTIME 08/19/19 08/17/20 [Tylenol PM] lactobacillus combination no.8 PO DAILY 10/20/19 08/17/20 [Adult Probiotic] mecobalamin (vitamin B12) 1,000 1,000 mcg SL DAILY 10/20/19 08/17/20 mcg disintegrating tablet,sublingual pantoprazole 20 mg tablet,delayed 20 mg PO DAILY 10/20/19 08/17/20 release melatonin 10 mg capsule 5 mg PO BEDTIME cap 02/03/20 08/17/20 polyethylene glycol 3350 17 gram 17 gram PO DAILY PRN 02/03/20 08/17/20 oral powder packet (Miralax) duloxetine 30 mg capsule,delayed 30 mg PO DAILY 08/15/20 08/17/20 release (Cymbalta) Previous Rx's Medication Instructions Recorded amoxicillin 875 mg-potassium 1 tab PO BID #20 tab 10/03/20 clavulanate 125 mg tablet (Augmentin) levonorgestrel-ethinyl estradiol 1 tab PO DAILY #21 tab 02/03/21 0.1 mg-20 mcg tablet (Aviane) Allergies Allergy/AdvReac Type Severity Reaction Status Date / Time Sulfa (Sulfonamide Allergy Severe HIVES Verified 10/03/20 12:37 Antibiotics) [SULFA (SULFONAMIDE ANTIBIOTICS)] codeine [CODEINE] Allergy Mild NAUSEA Verified 10/03/20 12:37 SENSITIVE TO NARCOTICS Allergy Severe NAUSEA Uncoded 08/17/20 13:29 Review of Systems Constitutional Constitutional: Denies fever(s) Cardiovascular Cardiovascular: Reports system reviewed and no additional complaints, except as documented Respiratory Respiratory: Reports system reviewed and no additional complaints, except as documented Gastrointestinal Gastrointestinal: Reports as per HPI Genitourinary Genitourinary: Reports system reviewed and no additional complaints, except as documented Musculoskeletal Musculoskeletal: Reports back pain Integumentary/Breasts Skin/Breast: Reports system reviewed and no additional complaints, except as documented Neurologic Neurologic: Reports system reviewed and no additional complaints, except as documented Hematologic/Lymphatic On Anticoagulants: No Patient History Medical History Arthritis Asthma Bruises easily Constipation Fibromyalgia Former smoker Gastroparesis Gastroparesis Greater trochanteric bursitis of right hip Heart murmur History of headache History of pneumonia Low blood sugar Malignant hyperthermia (~12/2014) Migraines Osteoarthritis Piriformis syndrome Sacral dysfunction Sinus drainage Tear of acetabular labrum Surgical History History of foot surgery (01/2016) History of third molar tooth extraction (1984) History of thyroidectomy (12/21/14) Status post endometrial ablation (12/21/14) Status post laparoscopy (1982) Status post laparoscopy (2001) Family History Mother Stroke Grandmother Cancer Father Heart disease Grandfather Heart disease Grandfather Stomach cancer Social History marital status: unknown household members: none occupational status: employed Smoking Status: Former smoker alcohol intake: current substance use type: does not use Smoking Status: Former smoker alcohol intake frequency: holidays/special occasions only Substance Use Type: does not use Exam Initial Vital Signs Initial Vital Signs: Vital Signs Temperature 99 F 03/25/21 22:45 Pulse Rate 124 H 03/25/21 22:45 Respiratory Rate 15 03/25/21 22:45 Blood Pressure 140/80 03/25/21 22:45 Pulse Oximetry 100 03/25/21 22:45 Const General: cooperative and healthy appearing [facility] Head: normal to inspection and normocephalic Resp Effort & Inspection: normal respiratory effort Cardio Rate: regular rate GI Inspection: normal to inspection Palpation: soft and tender Skin General: no rashes or lesions noted Neuro General: patient alert, patient awake and patient oriented x3 Extrem General: normal to inspection and capillary refill normal Psych Appearance: grossly normal and well kempt Course Orders Ordered: ED Orders 03/25/21 23:10 Complete Blood Count AUTO DIFF Stat Comprehensive Metabolic Panel Stat Lipase Stat 03/25/21 23:11 CT abdomen pelvis w con Stat Discontinued Medications Sodium Chloride (Normal Saline 0.9%) 1,000 mls @ 1,000 mls/hr IV BOLUS ONE Stop: 03/26/21 00:10 Last Infusion: 03/26/21 01:33 Dose: 0 mls/hr Documented by: Admin: 03/25/21 23:16 Dose: 1,000 mls/hr Documented by: KATERINA Ondansetron HCl (Ondansetron 4 Mg/2 Ml Inj) 4 mg IV NOW ONE Stop: 03/25/21 23:12 Last Admin: 03/25/21 23:16 Dose: 4 mg Documented by: KATERINA Ondansetron HCl (Ondansetron 4 Mg Odt Prepack) 1 bottle MISC SEEINSTR ONE Stop: 03/26/21 01:28 Last Admin: 03/26/21 01:33 Dose: 1 bottle Documented by: FRANKI Sumatriptan Succinate (Sumatriptan 6 Mg/0.5 Ml Vial) 6 mg SUBCUT NOW ONE Stop: 03/26/21 00:56 Last Admin: 03/26/21 01:01 Dose: 6 mg Documented by: FRANKI Vital Signs Vital signs: Vital Signs - 8 hr 03/25/21 22:45 03/25/21 23:31 03/25/21 23:53 Temperature 99 F Pulse Rate 124 H 106 H 104 H Respiratory Rate 15 16 25 H Blood Pressure 140/80 139/65 Pulse Oximetry 100 100 99 03/26/21 00:00 03/26/21 00:30 03/26/21 01:37 Temperature Pulse Rate 103 H 99 H 107 H Respiratory Rate 27 H 20 16 Blood Pressure 127/62 119/56 L 146/77 H Pulse Oximetry 100 100 96 Medical Decision Making Lab Data Lab results reviewed: Yes I reviewed the patient's lab results. Result diagrams: 03/25/21 23:10 03/25/21 23:10 Labs: Lab Results 03/25/21 03/25/21 Range/Units 23:10 23:10 WBC 12.2 H (4.5-11.0) X10^3/uL RBC 4.46 (4.0-5.2) X10^6/uL Hgb 12.5 (12.0-16.0) g/dL Hct 37.9 (36-46) % MCV 85.0 (80-100) fL MCH 27.9 (26-34) PG MCHC 32.8 (30-36) % RDW 15.1 H (11.6-14.8) % Plt Count 271 (150-400) X10^3/uL Neut % (Auto) 91.7 H (50-75) % Lymph % (Auto) 4.8 L (25-40) % Anderson % (Auto) 3.3 (3-14) % Eos % (Auto) 0.1 L (2-4) % Baso % (Auto) 0.1 (0-2) % Neut # (Auto) 01237 H (3195-5091) /uL Lymph # (Auto) 600 L (2336-9128) /uL Anderson # (Auto) 400 (0-900) /uL Eos # (Auto) 0 (0-450) /uL Baso # (Auto) 0 (0-100) /uL Sodium 136 L (137-145) mmol/L Potassium 3.8 (3.4-5.1) mmol/L Chloride 102 (98-107) mmol/L Carbon Dioxide 25 (22-32) mmol/L BUN 15 (7-17) mg/dL Creatinine 0.88 (0.52-1.04) mg/dL Estimated GFR > 60.0 (>60) mL/min BUN/Creatinine Ratio 17.0 (6-22) Glucose 103 H (70-100) mg/dL Calcium 8.7 (8.4-10.2) mg/dL Total Bilirubin 0.7 (0.2-1.3) mg/dL AST 21 (14-36) IU/L ALT 21 (<35) IU/L Alkaline Phosphatase 91 (38-126) U/L Total Protein 7.1 (6.3-8.2) g/dL Albumin 4.2 (3.5-5.0) g/dL Globulin 2.9 (1.7-4.1) g/dL Albumin/Globulin Ratio 1.4 (1.0-2.8) Lipase 60 (23-300) U/L Urine Dip Bedside Urine Glucose Negative Bedside Urine Bilirubin - Negative Bedside Urine Ketone - Negative Urine Specific [place] 1.010 Bedside Urine Occult Blood +/- Bedside Urine pH 7 Bedside Urine Protein - Negative Bedside Urine Urobilinogen - Negative Bedside Urine Nitrite - Negative Bedside Urine Leukocytes - Negative Esterase Point of care testing: Urine Dip Bedside Urine Glucose Negative Bedside Urine Bilirubin - Negative Bedside Urine Ketone - Negative Urine Specific [place] 1.010 Bedside Urine Occult Blood +/- Bedside Urine pH 7 Bedside Urine Protein - Negative Bedside Urine Urobilinogen - Negative Bedside Urine Nitrite - Negative Bedside Urine Leukocytes - Negative Esterase Imaging Data CT scan - abdomen/pelvis: Radiologist's Impression: Abundant stool without bowel obstruction MDM Narrative Medical decision making narrative: Patient does have a relatively benign exam. The CT scan is read by Radiology is having no obstruction. She does have a slight leukocytosis however no definitive infection was found. No indication for antibiotics. We did discuss the use of oral laxatives and suppositories and enemas. Will hold on further workup for now. She was given return precautions and follow-up instructions. She expressed understanding and agreement. Discharge Plan Departure Patient Disposition: Home Clinical Impression: Abdominal pain, Constipation, Iron deficiency Instructions: DI for Constipation Activity Restrictions/Additional Instructions: Be sure to increase her fluid intake. Use the nausea medication as needed. I recommend that you continue with the laxatives. He can purchase these [id number]. You can try substances such as magnesium citrate and also MiraLax. Contact your primary provider for follow-up. Return to the emergency department for any new or worsening symptoms Prescriptions: No Action rizatriptan [Maxalt] 10 mg Tablet 10 mg PO Q2-4H PRN (Reason: Migraine Headache) Qty: 0 RF: 0 levonorgestrel-ethinyl estrad [Aviane] 0.1-20 mg-mcg tablet 1 tab PO DAILY Qty: 21 RF: 4 levothyroxine 100 mcg tablet 100 mcg PO DAILY RF: 0 cholecalciferol (vitamin D3) 1,000 unit capsule 1,000 unit PO DAILY RF: 0 diphenhydramine-acetaminophen [Tylenol PM Extra Strength] 25-500 mg tablet 1 tab PO BEDTIME PRN (Reason: Sleep) RF: 0 melatonin 10 mg capsule 5 mg PO BEDTIME RF: 0 methylprednisolone 2 mg tablet 4 mg PO DAILY RF: 0 duloxetine [Cymbalta] 30 mg capsule,delayed release(DR/EC) 30 mg PO DAILY RF: 0 amoxicillin-pot clavulanate [Augmentin] 875-125 mg tablet 1 tab PO BID Qty: 20 RF: 0 diphenhydramine-acetaminophen PO BEDTIME RF: 0 polyethylene glycol 3350 [Miralax] 17 gram powder in packet 17 gram PO DAILY PRNRF: 0 pantoprazole 20 mg tablet,delayed release (DR/EC) 20 mg PO DAILY RF: 0 lactobacillus combination no.8 PO DAILY RF: 0 mecobalamin (vitamin B12) 1,000 mcg tablet,disintegrating 1,000 mcg SL DAILY RF: 0 Referrals: Alondra Rose ARNP [Primary Care Provider] -
--- NOTE | 2021-03-25 23:11 | DI.CT.S_ITS ---
PROCEDURE: CT ABDOMEN PELVIS W CON INDICATIONS: Left-sided abdominal pain TECHNIQUE: After the administration of intravenous contrast, axial sections acquired from the lung bases to the pubic symphysis. Coronal and sagittal reformats were performed. For radiation dose reduction, the following was used: automated exposure control, adjustment of mA and/or kV according to patient size. COMPARISON: [facility], CT, CT ABDOMEN PELVIS W CON, 06/08/2020, 12:04. [facility], US, US ABDOMEN LIMITED, 11/02/2020, 11:39. [facility], CT, CT ABDOMEN PELVIS W CON, 09/14/2020, 14:29. FINDINGS: Image quality: Excellent. Lung bases: Unremarkable. Heart: No significant findings. ABDOMEN: Liver: Unremarkable. Gallbladder: Unremarkable. Biliary ducts: Unremarkable. Pancreas: Unremarkable. Spleen: Unremarkable. Adrenal Glands: Unremarkable. Kidneys and Ureters: Unremarkable. Stomach and Bowel: Stomach, small bowel loops, and colon are unremarkable. A normal appendix is incidentally noted. There is a moderate amount of stool seen throughout the colon. Peritoneum: No abnormal intraperitoneal fluid. No free air. Ventral Wall: No hernias. Abdominal Nodes: No retroperitoneal or mesenteric adenopathy by size criteria. Vessels: Aorta and inferior vena cava are normal in size. PELVIS: Pelvic Organs: Unremarkable. Bladder: Unremarkable. Pelvic Nodes: No enlarged lymph nodes. Miscellaneous: No hernias are seen. Bones: Unremarkable. IMPRESSION: A cause of left-sided abdominal pain is not seen. There is a moderate amount of stool seen within the colon. Please correlate with an underlying history of constipation. Note: No significant discrepancy from the preliminary report. Dictated by: Dangelo Reed M.D. on 03/26/2021 at 6:59 Approved by: Dangelo Reed M.D. on 03/26/2021 at 7:01
[2021-03-25] MEDS: SODIUM CHLORIDE 0.9% 1,000 ML 1000 ML IV (23:16)
[2021-03-25] MEDS: ONDANSETRON 4 MG/2 ML INJ IV (23:16)
[2021-03-25 23:27] LABS: Add Manual Diff / Slide Review NO; Basophils Absolute Auto 0 /uL (0-100); Basophils Percent Auto 0.1 % (0-2); Eosinophils Absolute Auto 0 /uL (0-450); Eosinophils Percent Auto 0.1 % (2-4); Hematocrit 37.9 % (36-46); Hemoglobin 12.5 g/dL (12.0-16.0); Lymphocytes Absolute Auto 600 /uL (1100-4500); Lymphocytes Percent Auto 4.8 % (25-40); Mean Corpuscular HGB Conc 32.8 % (30-36); Mean Corpuscular Hemoglobin 27.9 PG (26-34); Monocytes Absolute Auto 400 /uL (0-900); Monocytes Percent Auto 3.3 % (3-14); Neutrophils Absolute Auto 11200 /uL (1500-7000); Neutrophils Percent Auto 91.7 % (50-75); Platelet Count 271 X10^3/uL (150-400); Red Blood Cell Count 4.46 X10^6/uL (4.0-5.2); Red Cell Distribution Width 15.1 % (11.6-14.8); White Blood Cell Count 12.2 X10^3/uL (4.5-11.0)
[2021-03-25 23:31] VITALS: PULSE 106; RESP 16; O2SAT 100
[2021-03-25 23:31] LABS: Alanine Aminotransferase 21 IU/L (<35); Albumin 4.2 g/dL (3.5-5.0); Albumin Globulin Ratio 1.4 (1.0-2.8); Alkaline Phosphatase 91 U/L (38-126); Aspartate Aminotransferase 21 IU/L (14-36); Bilirubin Total 0.7 mg/dL (0.2-1.3); Blood Urea Nitrogen 15 mg/dL (7-17); Calcium 8.7 mg/dL (8.4-10.2); Carbon Dioxide 25 mmol/L (22-32); Chloride 102 mmol/L (98-107); Estimated Glomerular Filt Rate > 60.0 mL/min (>60); Globulin 2.9 g/dL (1.7-4.1); Glucose 103 mg/dL (70-100); HEMOLYSIS < 15 (0-50); Lipase 60 U/L (23-300); Potassium 3.8 mmol/L (3.4-5.1); Sodium 136 mmol/L (137-145); Total Protein 7.1 g/dL (6.3-8.2)
[2021-03-25 23:53] VITALS: BP 139/65; PULSE 104; RESP 25; O2SAT 99
[2021-03-26] VITALS: BP 127/62; PULSE 103; RESP 27; O2SAT 100
[2021-03-26 00:30] VITALS: BP 119/56; PULSE 99; RESP 20; O2SAT 100
[2021-03-26] MEDS: SUMAtriptan 6 MG/0.5 ML VIAL SUBCUT (01:01)
[2021-03-26] MEDS: ONDANSETRON 4 MG ODT PREPACK 1 BOTTLE MISC (01:33)
[2021-03-26 01:37] VITALS: BP 146/77; PULSE 107; RESP 16; O2SAT 96
== END 2021-03-26 01:38 | disposition home or self-care (01) ==
PROVIDERS: Emergency Provider Emergency Medicine; Family Provider Student in an Organized Health Care Education/Training Program; PCP Nurse Practitioner Family
DX: K59.00 Constipation, unspecified (principal); R10.9 Unspecified abdominal pain; E61.1 Iron deficiency; R11.0 Nausea
CPT/HCPCS: 36415; 74177; 80053; 81003; 83690; 85025; 96361; 96372; 96374; 99284; J2405; J3030; Q9967

== ENCOUNTER → 2021-04-04 10:43 | Outpatient (CLI) | payer OTHER, MEDICAID, SELFPAY ==
--- NOTE | 2021-04-04 | DI.US.S_ITS ---
PROCEDURE: US ABDOMEN LIMITED INDICATIONS: RUQ PAIN TECHNIQUE: Real-time focused scanning was performed of the abdomen, with image documentation. COMPARISON: [facility], CT, CT ABDOMEN PELVIS W CON, 03/25/2021, 23:45. [facility], US, US ABDOMEN LIMITED, 11/02/2020, 11:39. FINDINGS: The liver demonstrates normal size. The liver demonstrates generalized mildly increased echogenicity. This decreases ultrasound sensitivity for detection of hepatic masses. No findings of gallstones or sludge are seen. The gallbladder wall is not thickened, measuring 3 mm or less. No specific pericholecystic fluid is seen. The sonographic Chand sign is negative. There is no biliary dilatation, the common bile duct measures 4 mm. No significant pancreatic abnormality is seen on these images. IMPRESSION: The gallbladder demonstrates a normal sonographic appearance. No biliary dilatation is seen. Mild fatty liver infiltration. Dictated by: Dangelo Reed M.D. on 04/04/2021 at 11:01 Approved by: Dangelo Reed M.D. on 04/04/2021 at 11:02
== END ==
PROVIDERS: Family Provider Student in an Organized Health Care Education/Training Program; PCP Student in an Organized Health Care Education/Training Program; Referring Provider Student in an Organized Health Care Education/Training Program; Visit Provider Student in an Organized Health Care Education/Training Program
DX: R10.11 Right upper quadrant pain (principal); K76.0 Fatty (change of) liver, not elsewhere classified
CPT/HCPCS: 76705

== ENCOUNTER → 2021-04-27 15:51 | Outpatient (CLI) | payer OTHER, MEDICAID, SELFPAY ==
--- NOTE | 2021-04-27 15:53 | DI.RAD.S_ITS ---
PROCEDURE: XR RIBS LT MIN 3V W CXR1V INDICATIONS: LUQ pain TECHNIQUE: Two views of the left ribs were acquired, along with a single view chest. COMPARISON: None. FINDINGS: Surgical changes and devices: None. Bones and chest wall: No fractures or dislocations. No suspicious bony lesions. Overlying soft tissues appear unremarkable. Lungs and pleura: No pleural effusions or pneumothorax. Lungs appear clear. Mediastinum: Mediastinal contours appear normal. Heart size is normal. IMPRESSION: No acute finding or other abnormality at the patient's left upper quadrant area of interest. Dictated by: Roberto Diaz M.D. on 04/27/2021 at 16:19 Approved by: Roberto Diaz M.D. on 04/27/2021 at 16:20
--- NOTE | 2021-04-27 15:53 | DI.RAD.S_ITS ---
PROCEDURE: XR ABDOMEN 1V INDICATIONS: LUQ pain TECHNIQUE: One view of the abdomen acquired. COMPARISON: None. FINDINGS: Surgical changes and devices: None. Bowel: Moderate stool primarily within the right colon. No definite transition point. Soft tissues: No suspicious abdominal calcifications. Visualized solid organ contours appear normal in size. Bones: Mild spondylosis and bilateral mild hip joint degeneration. IMPRESSION: Moderate stool. No specific evidence of bowel obstruction seen at this time although if the patient's symptoms do not improve, continued surveillance with abdominal series radiographs could be performed. Dictated by: Jamarcus Quezada M.D. on 04/27/2021 at 16:24 Approved by: Jamarcus Quezada M.D. on 04/27/2021 at 16:25
--- NOTE | 2021-04-27 15:53 | DI.RAD.S_ITS ---
PROCEDURE: XR LUMBAR SPINE 2-3V INDICATIONS: LUQ pain TECHNIQUE: 2 views of the lumbar spine were acquired. COMPARISON: [facility], , L-SPINE 2-3 VIEWS, 05/22/2017, 16:54. FINDINGS: Bones: 5 dyt-[id number]-gxruqlb vertebrae are present. There is normal bony alignment. No vertebral body compression fractures. No suspicious bony lesions. Mild facet hypertrophy is seen at L4-5 and L5-S1. Soft tissues: Overlying bowel gas pattern is normal. No suspicious soft tissue calcifications. IMPRESSION: No acute osseous abnormality. Mild spondylosis. Dictated by: Karthik Oconnor M.D. on 04/27/2021 at 16:32 Approved by: Karthik Oconnor M.D. on 04/27/2021 at 16:35
== END ==
PROVIDERS: Family Provider Student in an Organized Health Care Education/Training Program; PCP Student in an Organized Health Care Education/Training Program; Referring Provider Student in an Organized Health Care Education/Training Program; Visit Provider Student in an Organized Health Care Education/Training Program
DX: R07.81 Pleurodynia (principal); R10.12 Left upper quadrant pain; M16.0 Bilateral primary osteoarthritis of hip; M47.816 Spondylosis without myelopathy or radiculopathy, lumbar region; M47.817 Spondylosis without myelopathy or radiculopathy, lumbosacral region; Z79.52 Long term (current) use of systemic steroids
CPT/HCPCS: 71101; 72100; 74018

== ENCOUNTER → 2021-05-05 08:05 | Outpatient (CLI) | payer OTHER, MEDICAID, SELFPAY ==
--- NOTE | 2021-05-05 | DI.NM.S_ITS ---
PROCEDURE: NM HIDA WITH CCK PHARMACEUTICAL: 5.5 mCi Tc-99m mebrofenin IV; 2.0 mcg CCK IV. INDICATIONS: Right upper quadrant pain TECHNIQUE: Following intravenous administration of Tc-99m mebrofenin, sequential anterior abdominal images were obtained. To evaluate the contractile response of the gallbladder in response to Cholecystokinin (CCK), sincalide (0.02 ?g/kg) was administered by slow intravenous infusion approximately 40 minutes after the administration of the radiopharmaceutical. Sequential imaging was continued for 30 minutes after the start of CCK infusion. Gallbladder ejection fraction was calculated. COMPARISON: [facility], US, US ABDOMEN LIMITED, 04/04/2021, 11:11. [facility], CT, CT ABDOMEN PELVIS W CON, 03/25/2021, 23:45. FINDINGS: Biliary scan: There is normal tracer uptake and excretion by the liver. There is normal visualization of the intrahepatic ducts, common bile duct, and gallbladder. There is normal tracer transit into the duodenum. Note is made of bile reflux into the stomach. CCK stimulation: There is normal contractile response of the gallbladder to CCK infusion. The calculated gallbladder ejection fraction is 98%; normal values are above 35%. It has been shown that any patient abdominal pain after CCK administration is related to the rate of CCK injection, rather than to any underlying gallbladder disease (Clinical Nuclear Medicine 2012; 37: 63-70. Journal of Nuclear Medicine 2014; 55: 1-9). IMPRESSION: 1. Normal filling of gallbladder. No evidence for acute cholecystitis. 2. Normal contractile response of gallbladder to CCK stimulation. 3. Bile reflux into the stomach. Dictated by: Kin Jade M.D. on 05/05/2021 at 10:40 Approved by: Kin Jaed M.D. on 05/05/2021 at 10:42
== END ==
PROVIDERS: Family Provider Student in an Organized Health Care Education/Training Program; PCP Student in an Organized Health Care Education/Training Program; Referring Provider Student in an Organized Health Care Education/Training Program; Visit Provider Student in an Organized Health Care Education/Training Program
DX: R10.11 Right upper quadrant pain (principal)
CPT/HCPCS: 78227; A9537; J2805

== ENCOUNTER → 2021-05-19 14:44 | Outpatient (CLI) | payer OTHER, MEDICAID, SELFPAY ==
--- NOTE | 2021-05-19 | DI.MG.S_ITS ---
BILATERAL DIGITAL SCREENING MAMMOGRAM 3D/2D WITH CAD: 05/19/2021 CLINICAL: Routine screening. Family history of breast cancer. Comparison is made to exams dated: 04/14/2020 mammogram, 01/23/2019 mammogram, and 11/01/2017 mammogram - [facility]. There are scattered fibroglandular elements in both breasts. Current study was also evaluated with a Computer Aided Detection (CAD) system. No significant masses, calcifications, or other findings are seen in either breast. There has been no significant interval change. IMPRESSION: NEGATIVE There is no mammographic evidence of malignancy. A 1 year screening mammogram is recommended. This exam was interpreted at Station ID: [id number]. NOTE: For mammograms, a report in lay terms will be sent to the patient. Approximately 15% of breast malignancies will not be visualized mammographically. In the management of a palpable breast mass, a negative mammogram must not discourage biopsy of a clinically suspicious lesion. Electronically Signed By: Roberto Diaz M.D., jr/salvador:05/19/2021 15:06:15 letter sent: Normal Exam ACR BI-RADS Category 1: Negative [id number]
== END ==
PROVIDERS: Family Provider Student in an Organized Health Care Education/Training Program; PCP Student in an Organized Health Care Education/Training Program; Referring Provider Student in an Organized Health Care Education/Training Program; Visit Provider Student in an Organized Health Care Education/Training Program
DX: Z12.31 Encounter for screening mammogram for malignant neoplasm of breast (principal); Z80.3 Family history of malignant neoplasm of breast
CPT/HCPCS: 77063; 77067

== ENCOUNTER → 2021-07-25 15:26 | Outpatient (CLI) | payer OTHER, MEDICAID, SELFPAY ==
[2021-07-25 16:39] LABS: Erythrocyte Sedimentation Rate 25 MM/HR (0-20)
[2021-07-25 16:56] LABS: C-Reactive Protein Quant 1.2 mg/dL (<1.0)
[2021-07-25 17:06] LABS: Free T4, Direct Thyroxine 0.82 ng/dL (0.78-2.19)
[2021-07-25 17:20] LABS: Thyroid Stimulating Hormone 0.248 uIU/mL (0.47-4.68)
[2021-07-25 17:50] LABS: Progesterone, Total 0.09 ng/mL
[2021-07-28 12:05] LABS: Estradiol <5.0 pg/mL (.); Estriol,Serum <0.1 ng/mL (.); Estrone,Serum 51 pg/mL (.)
== END ==
PROVIDERS: Internal Medicine Endocrinology, Diabetes & Metabolism; Nurse Practitioner; Family Provider Student in an Organized Health Care Education/Training Program; PCP Student in an Organized Health Care Education/Training Program; Referring Provider Obstetrics & Gynecology; Visit Provider Obstetrics & Gynecology
DX: M79.7 Fibromyalgia (principal); Z79.52 Long term (current) use of systemic steroids; M06.09 Rheumatoid arthritis without rheumatoid factor, multiple sites; E89.0 Postprocedural hypothyroidism; E61.1 Iron deficiency; L65.9 Nonscarring hair loss, unspecified
CPT/HCPCS: 36415; 82670; 82677; 82679; 84144; 84439; 84443; 85651; 86140

== ENCOUNTER → 2021-08-25 12:10 | Outpatient (CLI) | payer OTHER, MEDICAID, SELFPAY ==
[2021-08-25 12:51] LABS: HEMOLYSIS < 15 (0-50); Iron 47 ug/dL (37-170)
[2021-08-25 13:03] LABS: Percent Iron Saturation 11 % (15-50); Total Iron Binding Capacity 415 ug/dL (265-497); Transferrin 330 mg/dL (206-381)
[2021-08-25 13:31] LABS: Ferritin 5 ng/mL (11-264)
== END ==
PROVIDERS: Family Provider Student in an Organized Health Care Education/Training Program; PCP Student in an Organized Health Care Education/Training Program; Referring Provider Obstetrics & Gynecology; Visit Provider Obstetrics & Gynecology
DX: E03.9 Hypothyroidism, unspecified (principal)
CPT/HCPCS: 36415; 82728; 83540; 83550

== ENCOUNTER → 2021-10-20 14:14 | Outpatient (CLI) | payer OTHER, MEDICAID, SELFPAY ==
--- NOTE | 2021-10-20 | DI.MRI.S_ITS ---
PROCEDURE: MR HEAD/BRAIN WO CON INDICATIONS: Headache, unspecified TECHNIQUE: Non-contrast axial T1 spin echo, axial T2 fast spin echo, sagittal and axial FLAIR, coronal T2 fast spin echo, axial gradient echo, axial diffusion and ADC through the brain. COMPARISON: [facility], MR, MR HEAD/BRAIN WO/W CON, 01/16/2021, 16:30. FINDINGS: Image quality: Excellent. CSF spaces: Ventricles appear symmetric in size and shape. Basal cisterns are patent. No extra-axial fluid collections. Brain: No intracranial bleeds or mass effects. There is minimal cerebral volume loss for age. Parenchymal signal intensity is within normal limits.. Brainstem appears normal. Diffusion-weighted images show no acute ischemic insults. No chronic ischemic insults. Normal intravascular flow voids are present. Skull and face: Calvarial bone marrow is normal in signal. Orbits are normal. Sinuses: Sinuses and mastoids are clear. IMPRESSION: 1. Negative brain MRI. 2. No acute process. No recent infarct. 3. No explanation for headache. Dictated by: Ange Castellanos M.D. on 10/20/2021 at 15:04 Approved by: Ange Castellanos M.D. on 10/20/2021 at 15:05
== END ==
PROVIDERS: Family Provider Student in an Organized Health Care Education/Training Program; PCP Student in an Organized Health Care Education/Training Program; Referring Provider Psychiatry & Neurology Neuromuscular Medicine; Visit Provider Psychiatry & Neurology Neuromuscular Medicine
DX: R51.9 Headache, unspecified (principal); G89.29 Other chronic pain
CPT/HCPCS: 70551

== ENCOUNTER → 2021-12-18 11:41 | Outpatient (CLI) | payer OTHER, MEDICAID, SELFPAY ==
--- NOTE | 2021-12-18 11:46 | DI.RAD.S_ITS ---
PROCEDURE: XR HAND RT 2V INDICATIONS: RHEUMATOID ARTHRITIS TECHNIQUE: 2 views of the hand(s) acquired. COMPARISON: [facility], CR, XR HAND LT MIN 3V, 07/08/2020, 15:42. FINDINGS: Bones: No fractures or dislocations. Joint spaces are fairly well preserved for patient's age. No gross bony erosive changes are seen. Carpal bones are normally aligned. No suspicious bony lesions. Soft tissues: No suspicious soft tissue calcifications. IMPRESSION: No bony erosive changes are noted in right hand. Joint spaces are fairly well preserved for patient's age. No fracture or dislocation. No gross soft tissue abnormality. Dictated by: French Laird M.D. on 12/18/2021 at 14:14 Approved by: French Laird M.D. on 12/18/2021 at 14:15
--- NOTE | 2021-12-18 11:46 | DI.RAD.S_ITS ---
PROCEDURE: XR THORACIC SPINE 2V INDICATIONS: RHEUMATOID ARTHRITIS TECHNIQUE: 3 views of the thoracic spine were acquired. COMPARISON: None. FINDINGS: Bones: No fractures or dislocations. No suspicious bony lesions. 12 pairs of ribs are noted, and appear intact where visualized. Moderate degenerative disc changes noted throughout the lumbar spine. Soft tissues: No paravertebral stripe thickening. IMPRESSION: 1. Multilevel degenerative disc disease. 2. No osseous erosive changes. Dictated by: Jenni Keith MD, PhD on 12/18/2021 at 17:26 Approved by: Jenni Keith MD, PhD on 12/18/2021 at 17:27
--- NOTE | 2021-12-18 11:46 | DI.RAD.S_ITS ---
PROCEDURE: XR HAND LT 2V INDICATIONS: RHEUMATOID ARTHRITIS TECHNIQUE: 2 views of the hand(s) acquired. COMPARISON: [facility], CR, XR HAND RT 2V, 12/18/2021, 11:59. FINDINGS: Bones: No fractures or dislocations. Joint spaces are well preserved. No gross bony erosive changes are seen. Carpal bones are normally aligned. No suspicious bony lesions. Soft tissues: No suspicious soft tissue calcifications. IMPRESSION: Unremarkable radiographic examination of left hand. No bony erosive changes. Dictated by: French Laird M.D. on 12/18/2021 at 14:15 Approved by: French Laird M.D. on 12/18/2021 at 14:22
--- NOTE | 2021-12-18 11:46 | DI.RAD.S_ITS ---
PROCEDURE: XR LUMBAR SPINE 2-3V INDICATIONS: RHEUMATOID ARTHRITIS TECHNIQUE: 3 views of the lumbar spine were acquired. COMPARISON: None. FINDINGS: Bones: 5 dda-nnh-[id number] vertebrae are present. There is normal bony alignment. No vertebral body compression fractures. No suspicious bony lesions. Mild degenerative disc changes noted throughout the lumbar spine. Soft tissues: Overlying bowel gas pattern is normal. No suspicious soft tissue calcifications. IMPRESSION: 1. Multilevel degenerative disc disease. 2. No fracture. No acute osseous lesion. If symptoms and/or clinical suspicion for pathology persists, evaluation with MRI should be considered for further assessment. 3. No osseous erosive changes. Dictated by: Jenni Keith MD, PhD on 12/18/2021 at 17:25 Approved by: Jenni Keith MD, PhD on 12/18/2021 at 17:26
[2021-12-18 13:35] LABS: Add Manual Diff / Slide Review NO; Basophils Absolute Auto 0 /uL (0-100); Basophils Percent Auto 0.2 % (0-2); Eosinophils Absolute Auto 0 /uL (0-450); Eosinophils Percent Auto 0.3 % (2-4); Hematocrit 34.1 % (36-46); Hemoglobin 11.1 g/dL (12.0-16.0); Lymphocytes Absolute Auto 2400 /uL (1100-4500); Lymphocytes Percent Auto 18.5 % (25-40); Mean Corpuscular HGB Conc 32.6 % (30-36); Mean Corpuscular Hemoglobin 27.2 PG (26-34); Mean Corpuscular Volume 83.4 fL (80-100); Monocytes Absolute Auto 800 /uL (0-900); Monocytes Percent Auto 6.3 % (3-14); Neutrophils Absolute Auto 9600 /uL (1500-7000); Neutrophils Percent Auto 74.7 % (50-75); Platelet Count 339 X10^3/uL (150-400); Red Blood Cell Count 4.09 X10^6/uL (4.0-5.2); Red Cell Distribution Width 15.5 % (11.6-14.8); White Blood Cell Count 12.8 X10^3/uL (4.5-11.0)
[2021-12-18 13:44] LABS: Alanine Aminotransferase 26 IU/L (<35); Albumin 3.9 g/dL (3.5-5.0); Albumin Globulin Ratio 1.3 (1.0-2.8); Alkaline Phosphatase 60 U/L (38-126); Aspartate Aminotransferase 21 IU/L (14-36); BUN Creatinine Ratio 15.6 (6-22); Bilirubin Total 0.4 mg/dL (0.2-1.3); Blood Urea Nitrogen 15 mg/dL (7-17); C-Reactive Protein Quant 1.1 mg/dL (<1.0); Calcium 8.4 mg/dL (8.4-10.2); Carbon Dioxide 27 mmol/L (22-32); Chloride 104 mmol/L (98-107); Estimated Glomerular Filt Rate > 60.0 mL/min (>60); Globulin 2.9 g/dL (1.7-4.1); Glucose 91 mg/dL (70-100); HEMOLYSIS < 15 (0-50); Potassium 3.7 mmol/L (3.4-5.1); Sodium 138 mmol/L (137-145); Total Protein 6.8 g/dL (6.3-8.2)
[2021-12-18 14:02] LABS: Erythrocyte Sedimentation Rate 28 MM/HR (0-20)
== END ==
PROVIDERS: Family Provider Student in an Organized Health Care Education/Training Program; PCP Student in an Organized Health Care Education/Training Program; Referring Provider Nurse Practitioner; Visit Provider Nurse Practitioner
DX: M06.09 Rheumatoid arthritis without rheumatoid factor, multiple sites (principal); Z79.52 Long term (current) use of systemic steroids
CPT/HCPCS: 36415; 72070; 72100; 73120; 80053; 85025; 85651; 86140

== ENCOUNTER → 2022-02-22 11:38 | Outpatient (CLI) | payer OTHER, MEDICAID, SELFPAY ==
--- NOTE | 2022-02-22 11:51 | DI.RAD.S_ITS ---
PROCEDURE: XR CHEST 2V INDICATIONS: RHEUMATOID TECHNIQUE: 2 views of the chest were acquired. COMPARISON: [facility], CR, XR CHEST 2V, 11/21/2018, 12:34. FINDINGS: Surgical changes and devices: None. Lungs and pleura: Lungs are clear. No pleural effusions or pneumothorax. Mediastinum: Mediastinal contours are normal. Heart size is normal. Bones and chest wall: No suspicious bony abnormalities. Soft tissues appear unremarkable. IMPRESSION: No acute cardiopulmonary process demonstrated radiographically. Dictated by: Roberto Diaz M.D. on 02/22/2022 at 13:25 Approved by: Roberto Diaz M.D. on 02/22/2022 at 13:26
[2022-02-22 13:41] LABS: Add Manual Diff / Slide Review NO; Basophils Absolute Auto 0 /uL (0-100); Basophils Percent Auto 0.4 % (0-2); Eosinophils Absolute Auto 100 /uL (0-450); Eosinophils Percent Auto 0.5 % (2-4); Hematocrit 35.7 % (36-46); Hemoglobin 11.6 g/dL (12.0-16.0); Lymphocytes Absolute Auto 3200 /uL (1100-4500); Lymphocytes Percent Auto 32.9 % (25-40); Mean Corpuscular HGB Conc 32.4 % (30-36); Mean Corpuscular Volume 83.1 fL (80-100); Monocytes Absolute Auto 500 /uL (0-900); Monocytes Percent Auto 5.6 % (3-14); Neutrophils Absolute Auto 5900 /uL (1500-7000); Neutrophils Percent Auto 60.6 % (50-75); Platelet Count 341 X10^3/uL (150-400); Red Blood Cell Count 4.29 X10^6/uL (4.0-5.2); Red Cell Distribution Width 15.3 % (11.6-14.8); White Blood Cell Count 9.7 X10^3/uL (4.5-11.0)
[2022-02-22 13:58] LABS: Alanine Aminotransferase 26 IU/L (<35); Albumin Globulin Ratio 1.4 (1.0-2.8); Alkaline Phosphatase 65 U/L (38-126); Aspartate Aminotransferase 25 IU/L (14-36); BUN Creatinine Ratio 16.7 (6-22); Bilirubin Total 0.3 mg/dL (0.2-1.3); Blood Urea Nitrogen 15 mg/dL (7-17); C-Reactive Protein Quant 2.1 mg/dL (<1.0); Calcium 8.9 mg/dL (8.4-10.2); Carbon Dioxide 26 mmol/L (22-32); Chloride 105 mmol/L (98-107); Estimated Glomerular Filt Rate > 60 mL/min (>60); Globulin 2.8 g/dL (1.7-4.1); Glucose 96 mg/dL (70-100); HEMOLYSIS < 15 (0-50); Potassium 3.6 mmol/L (3.4-5.1); Sodium 139 mmol/L (137-145); Total Protein 6.8 g/dL (6.3-8.2)
[2022-02-22 14:08] LABS: Erythrocyte Sedimentation Rate 28 MM/HR (0-20)
[2022-02-23 08:28] LABS: Candida species Negative (Negative); Gardnerella vaginalis Positive (Negative); Trichomoas vaginalis Negative (Negative)
== END ==
PROVIDERS: Physician Assistant Medical; Family Provider Student in an Organized Health Care Education/Training Program; PCP Student in an Organized Health Care Education/Training Program; Referring Provider Nurse Practitioner; Visit Provider Nurse Practitioner
DX: M06.09 Rheumatoid arthritis without rheumatoid factor, multiple sites (principal); Z79.52 Long term (current) use of systemic steroids; N89.8 Other specified noninflammatory disorders of vagina
CPT/HCPCS: 36415; 71046; 80053; 81002; 85025; 85651; 86140; 87480; 87510; 87660

== ENCOUNTER → 2022-03-15 12:22 | Outpatient (CLI) | payer OTHER, MEDICAID, SELFPAY ==
--- NOTE | 2022-03-15 12:24 | DI.RAD.S_ITS ---
PROCEDURE: XR FOOT LT MIN 3V INDICATIONS: Left foot pain TECHNIQUE: 3 views of the foot were acquired. COMPARISON: [facility], , XR FOOT LT MIN 3V, 07/08/2020, 15:30. FINDINGS: Bones: No fractures or dislocations. No suspicious bony lesions. There is a dorsal calcaneal spur. Minimal degenerative changes of the interphalangeal joints. No erosions or evidence of inflammatory arthropathy. Soft tissues: No tibiotalar joint effusion. Achilles tendon appears normal. IMPRESSION: No acute abnormality of the left foot. Dictated by: Wes Feliz M.D. on 03/15/2022 at 14:28 Approved by: Wes Feliz M.D. on 03/15/2022 at 14:30
== END ==
PROVIDERS: Family Provider Student in an Organized Health Care Education/Training Program; PCP Student in an Organized Health Care Education/Training Program; Referring Provider Student in an Organized Health Care Education/Training Program; Visit Provider Student in an Organized Health Care Education/Training Program
DX: M79.672 Pain in left foot (principal)
CPT/HCPCS: 73630

== ENCOUNTER → 2022-06-27 11:33 | Outpatient (CLI) | payer OTHER, MEDICAID, SELFPAY ==
--- NOTE | 2022-06-27 11:34 | DI.MG.S_ITS ---
BILATERAL DIGITAL SCREENING MAMMOGRAM 3D/2D WITH CAD: 06/27/2022 CLINICAL: Routine screening. Family history of breast cancer. Comparison is made to exams dated: 05/19/2021 mammogram, 04/14/2020 mammogram, 01/23/2019 mammogram, and 11/01/2017 mammogram - [facility]. There are scattered areas of fibroglandular density in both breasts (category b / 25%-50% glandular tissue). Current study was also evaluated with a Computer Aided Detection (CAD) system. No significant masses, calcifications, or other findings are seen in either breast. There has been no significant interval change. IMPRESSION: NEGATIVE There is no mammographic evidence of malignancy. A 1 year screening mammogram is recommended. Based on the Tyrer Cuzick model (a risk assessment model) the patient's lifetime risk is 8.0% and her 10 year risk is 2.4%. According to the ACR, ACS, and NCCN guidelines, an annual breast MRI exam along with mammogram is recommended if the patient's lifetime risk is 20% or greater. This exam was interpreted at Station ID: [id number]. NOTE: For mammograms, a report in lay terms will be sent to the patient. Approximately 15% of breast malignancies will not be visualized mammographically. In the management of a palpable breast mass, a negative mammogram must not discourage biopsy of a clinically suspicious lesion. Electronically Signed By: Hitesh gonzalez/salvador:06/27/2022 13:50:50 letter sent: Normal Exam ACR BI-RADS Category 1: Negative [id number]
== END ==
PROVIDERS: Family Provider Student in an Organized Health Care Education/Training Program; PCP Student in an Organized Health Care Education/Training Program; Referring Provider Student in an Organized Health Care Education/Training Program; Visit Provider Student in an Organized Health Care Education/Training Program
DX: Z12.31 Encounter for screening mammogram for malignant neoplasm of breast (principal); Z80.3 Family history of malignant neoplasm of breast
CPT/HCPCS: 77063; 77067

== ENCOUNTER → 2022-07-27 09:18 | Outpatient (CLI) | payer OTHER, MEDICAID, SELFPAY ==
--- NOTE | 2022-07-27 09:20 | DI.NM.S_ITS ---
PROCEDURE: NM HIDA WITH CCK PHARMACEUTICAL: 5.5 mCi Tc-99m mebrofenin IV; 2.0 mcg CCK IV. INDICATIONS: ABDOMINAL PAIN/RIGHT UPPER QUADRANT TECHNIQUE: Following intravenous administration of Tc-99m mebrofenin, sequential anterior abdominal images were obtained. To evaluate the contractile response of the gallbladder in response to Cholecystokinin (CCK), sincalide (0.02 ?g/kg) was administered by slow intravenous infusion approximately 60 minutes after the administration of the radiopharmaceutical. Sequential imaging was continued for 30 minutes after the start of CCK infusion. Gallbladder ejection fraction was calculated. COMPARISON: HIDA scan, 05/05/2021. FINDINGS: Biliary scan: There is normal tracer uptake and excretion by the liver. There is normal visualization of the intrahepatic ducts, common bile duct, and gallbladder. There is normal tracer transit into the duodenum. CCK stimulation: There is normal contractile response of the gallbladder to CCK infusion. The calculated gallbladder ejection fraction is 100%; normal values are above 35%. IMPRESSION: 1. Normal filling of gallbladder. No evidence for acute cholecystitis. 2. Normal contractile response of gallbladder to CCK stimulation. Dictated by: Kin Jade M.D. on 07/27/2022 at 11:42 Approved by: Kin Jade M.D. on 07/27/2022 at 11:43
== END ==
PROVIDERS: Family Provider Student in an Organized Health Care Education/Training Program; PCP Student in an Organized Health Care Education/Training Program; Referring Provider Student in an Organized Health Care Education/Training Program; Visit Provider Student in an Organized Health Care Education/Training Program
DX: R10.11 Right upper quadrant pain (principal)
CPT/HCPCS: 78227; A9537; J2805

== ENCOUNTER → 2022-08-02 12:47 | Outpatient (CLI) | payer OTHER, MEDICAID, SELFPAY | PROVIDERS: Family Provider Student in an Organized Health Care Education/Training Program; PCP Student in an Organized Health Care Education/Training Program; Referring Provider Physician Assistant; Visit Provider Physician Assistant | DX: M06.09 Rheumatoid arthritis without rheumatoid factor, multiple sites (principal); Z13.820 Encounter for screening for osteoporosis; K92.9 Disease of digestive system, unspecified | CPT/HCPCS: 77080 ==

== ENCOUNTER → 2022-08-14 13:54 | Outpatient (CLI) | payer OTHER, MEDICAID, SELFPAY ==
--- NOTE | 2022-08-14 15:19 | DI.CT.S_ITS ---
PROCEDURE: CT ABDOMEN PELVIS W CON INDICATIONS: ABDOMINAL PAIN/RUQ/ABNORMAL ABD IMAGING TECHNIQUE: CT enterography with volumen After the administration of oral and IV contrast, axial sections were acquired from the lung bases to the pubic symphysis. Coronal and sagittal reformats were performed. For radiation dose reduction, the following was used: automated exposure control, adjustment of mA and/or kV according to patient size. COMPARISON: [facility], CT, CT ABDOMEN PELVIS W CON, 09/14/2020, 14:29. [facility], CT, CT ABDOMEN PELVIS W CON, 03/25/2021, 23:45. FINDINGS: Image quality: Excellent. Lung bases: Unremarkable. Small hiatal hernia. Heart: No significant findings. ABDOMEN: Liver: Normal size. Mild hepatic steatosis. Focal fat is seen adjacent to the falciform ligament. Gallbladder: Unremarkable. Biliary ducts: Unremarkable. Pancreas: Unremarkable. Spleen: Unremarkable. Adrenal Glands: Unremarkable. Kidneys and Ureters: Unremarkable. Stomach and Bowel: Stomach, small bowel loops, and colon are normal in caliber. There is a large amount of stool in colon. A few colonic diverticula. No acute diverticulitis. Peritoneum: No abnormal intraperitoneal fluid. No free air. Ventral Wall: No hernia. Abdominal Nodes: No retroperitoneal or mesenteric adenopathy by size criteria. Vessels: Aorta and inferior vena cava are normal in size. PELVIS: Pelvic Organs: Unremarkable. Bladder: Unremarkable. Pelvic Nodes: No enlarged lymph nodes. Miscellaneous: No inguinal hernias are seen. Bones: Unremarkable. IMPRESSION: 1. No acute abnormalities in abdomen or pelvis. 2. Mild diverticulosis. No diverticulitis. 3. Normal appearance of small intestine. 4. Mild hepatic steatosis. 5. Small hiatal hernia. Dictated by: Kin Jade M.D. on 08/15/2022 at 8:57 Approved by: Kin Jade M.D. on 08/15/2022 at 9:12
== END ==
PROVIDERS: Family Provider Student in an Organized Health Care Education/Training Program; PCP Student in an Organized Health Care Education/Training Program; Referring Provider Student in an Organized Health Care Education/Training Program; Visit Provider Student in an Organized Health Care Education/Training Program
DX: R10.11 Right upper quadrant pain (principal); R93.5 Abnormal findings on diagnostic imaging of other abdominal regions, including retroperitoneum; K44.9 Diaphragmatic hernia without obstruction or gangrene; K76.0 Fatty (change of) liver, not elsewhere classified; K57.90 Diverticulosis of intestine, part unspecified, without perforation or abscess without bleeding
CPT/HCPCS: 74177

== ENCOUNTER → 2022-09-18 13:09 | Outpatient (CLI) | payer OTHER, MEDICAID, SELFPAY ==
[2022-09-18 13:58] LABS: Add Manual Diff / Slide Review NO; Basophils Absolute Auto 100 /uL (0-100); Eosinophils Absolute Auto 100 /uL (0-450); Eosinophils Percent Auto 0.7 % (2-4); Hematocrit 35.3 % (36-46); Hemoglobin 10.8 g/dL (12.0-16.0); Lymphocytes Absolute Auto 3300 /uL (1100-4500); Lymphocytes Percent Auto 24.2 % (25-40); Mean Corpuscular HGB Conc 30.6 % (30-36); Mean Corpuscular Hemoglobin 25.4 PG (26-34); Mean Corpuscular Volume 82.9 fL (80-100); Monocytes Absolute Auto 700 /uL (0-900); Monocytes Percent Auto 5.1 % (3-14); Neutrophils Absolute Auto 9400 /uL (1500-7000); Platelet Count 379 X10^3/uL (150-400); Red Blood Cell Count 4.26 X10^6/uL (4.0-5.2); Red Cell Distribution Width 15.9 % (11.6-14.8); White Blood Cell Count 13.6 X10^3/uL (4.5-11.0)
[2022-09-18 14:12] LABS: Erythrocyte Sedimentation Rate 33 MM/HR (0-20); HEMOLYSIS < 15 (0-50); Iron 39 ug/dL (37-170)
[2022-09-18 14:23] LABS: Percent Iron Saturation 10 % (15-50); Total Iron Binding Capacity 382 ug/dL (265-497); Transferrin 302 mg/dL (206-381)
[2022-09-18 15:05] LABS: Alanine Aminotransferase 27 IU/L (<35); Albumin 3.7 g/dL (3.5-5.0); Albumin Globulin Ratio 1.3 (1.0-2.8); Alkaline Phosphatase 82 U/L (38-126); Aspartate Aminotransferase 23 IU/L (14-36); Bilirubin Total 0.3 mg/dL (0.2-1.3); Blood Urea Nitrogen 12 mg/dL (7-17); C-Reactive Protein Quant 1.3 mg/dL (<1.0); Calcium 8.5 mg/dL (8.4-10.2); Carbon Dioxide 27 mmol/L (22-32); Chloride 99 mmol/L (98-107); Estimated Glomerular Filt Rate > 60 mL/min (>60); Globulin 2.9 g/dL (1.7-4.1); Glucose 84 mg/dL (70-100); HEMOLYSIS < 15 (0-50); Potassium 3.5 mmol/L (3.4-5.1); Sodium 136 mmol/L (137-145); Total Protein 6.6 g/dL (6.3-8.2)
[2022-09-25 12:13] LABS: Percent Free Testosterone 1.22 % (0.50-2.80); Testosterone Free 0.04 ng/dL (0.10-0.85); Testosterone Total 3.2 ng/dL (.)
== END ==
PROVIDERS: Obstetrics & Gynecology; Family Provider Student in an Organized Health Care Education/Training Program; PCP Student in an Organized Health Care Education/Training Program; Referring Provider Physician Assistant; Visit Provider Physician Assistant
DX: M06.09 Rheumatoid arthritis without rheumatoid factor, multiple sites (principal); Z79.52 Long term (current) use of systemic steroids; L65.9 Nonscarring hair loss, unspecified
CPT/HCPCS: 36415; 80053; 83540; 83550; 84402; 84403; 85025; 85651; 86140

== ENCOUNTER → 2022-10-03 13:01 | Outpatient (CLI) | payer OTHER, MEDICAID, SELFPAY ==
--- NOTE | 2022-10-03 13:02 | DI.US.S_ITS ---
PROCEDURE: US PELVIC COMPLETE INDICATIONS: LEFT PELVIC PAIN TECHNIQUE: Real-time scanning was performed of the pelvic organs, with image documentation. Additional endovaginal scanning was necessary due to incomplete visualization of the adnexal and endometrial structures by transabdominal scanning. COMPARISON: [facility], CT, CT ABDOMEN PELVIS W CON, 08/14/2022, 15:26. [facility], US, US PELVIC COMPLETE, 05/09/2021, 15:19. FINDINGS: Uterus: Uterus is anteverted and normal in size at 5.4 x 2.2 x 3.5 cm. The endometrium measures 3 mm combined thickness. Possible posterior midline uterine fibroid measuring 0.5 cm in maximum dimension that may have a submucosal component. Ovaries: The right ovary measures 1.7 x 1.4 x 1.1 cm, with a calculated ovarian volume of 1.3 cc. The left ovary measures 1.1 x 1.2 x 0.8 cm, with a calculated ovarian volume of 0.5 cc. The ovaries have a normal sonographic appearance. Less than 12 follicles can be seen in each ovary. No adnexal masses are seen. Other: No pathologic free abdominal or pelvic fluid. IMPRESSION: Small 0.5 cm uterine fibroid. No acute sonographic abnormality is seen in the pelvis. We strive to produce accurate, complete, and clear reports of imaging services. To assist us in improving patient care, this report was composed using standard report templates and voice recognition software. Therefore, it may contain abnormal punctuation, insertions and/or omissions. Occasional wrong-word or sound-alike substitutions may occur. Though we review the report and make efforts to correct it, we do recommend that the report be read carefully in proper context to recognize any text inaccuracies. Approved by: Karthik Oconnor M.D. on 10/03/2022 at 16:40
== END ==
PROVIDERS: Family Provider Student in an Organized Health Care Education/Training Program; PCP Student in an Organized Health Care Education/Training Program; Referring Provider Obstetrics & Gynecology; Visit Provider Obstetrics & Gynecology
DX: D25.9 Leiomyoma of uterus, unspecified (principal); N94.89 Other specified conditions associated with female genital organs and menstrual cycle; R10.2 Pelvic and perineal pain
CPT/HCPCS: 76830; 76856

== ENCOUNTER → 2022-12-25 15:01 | Outpatient (CLI) | payer OTHER, MEDICAID, SELFPAY ==
[2022-12-27 18:06] LABS: Hepatitis B Surface Antigen NEGATIVE s/c (NEGATIVE)
[2022-12-27 18:52] LABS: Hep C Virus Ab w/Reflex Quant NEGATIVE s/c (NEGATIVE)
== END ==
PROVIDERS: Family Provider Student in an Organized Health Care Education/Training Program; PCP Student in an Organized Health Care Education/Training Program; Referring Provider Physician Assistant; Visit Provider Physician Assistant
DX: M06.09 Rheumatoid arthritis without rheumatoid factor, multiple sites (principal); Z79.52 Long term (current) use of systemic steroids
CPT/HCPCS: 36415; 86803; 87340

== ENCOUNTER → 2023-01-08 14:05 | Outpatient (CLI) | payer OTHER, MEDICAID, SELFPAY ==
[2023-01-10 11:36] LABS: Candida species Negative (Negative); Gardnerella vaginalis Negative (Negative); Trichomoas vaginalis Negative (Negative)
== END ==
PROVIDERS: Family Provider Student in an Organized Health Care Education/Training Program; PCP Student in an Organized Health Care Education/Training Program; Visit Provider Obstetrics & Gynecology
DX: N89.8 Other specified noninflammatory disorders of vagina (principal)
CPT/HCPCS: 87480; 87510; 87660

== ENCOUNTER 2023-02-21 08:27 | Day surgery (SDC) | payer OTHER, MEDICAID, SELFPAY ==
[2023-02-18 08:38] VITALS: BMI 36.2
[2023-02-21] VITALS (10 sets, daily range): BP systolic 82–145; BP diastolic 46–79; PULSE 58–87; RESP 13–20; TEMP 35.7–36.7; O2SAT 95–100; BMI 36.2
--- NOTE | 2023-02-21 | PATH_ITS ---
[facility] Accession Number: [id number] No. of containers..01 Tissue . 01 Material submitted: . uterus - UTERUS, BILATERAL FALLOPIAN TUBE AND OVARIES . 01 Diagnosis: Uterus, Bilateral Fallopian Tube and Ovaries, Hysterectomy and Bilateral Salpingo-oophorectomy (Weight 24 grams): Weakly proliferative / basalis endometrium; negative for significant atypia. Myometrium with three intramural/subserosal leiomyomas (3-7 mm); negative for significant atypia. First described fallopian tube with complete cross-sections; negative for significant atypia. First described ovary with a benign corpus luteum cyst (10 mm), patchy, benign stromal thecosis and with minute benign cortical inclusion cysts. Second described fallopian tube, complete cross-section; negative for significant atypia. Second described ovary with no significant histomorphologic abnormality. [facility] 02/27/2023 1051 Local . 01 Electronically signed: . Shakila Tilley MD, Pathologist NPI- [id number] . 01 Gross description: . The specimen is received in formalin labeled with the patient's name, , and uterus with bilateral fallopian tubes and ovaries consist of a 24-gram uterine stump with attached bilateral adnexa. A cervix is not identified. The uterus measures 3.4 cm from fundus to the resection margin, 3.9 cm from cornu to cornu, 2.5 cm from anterior to posterior and weighs 16 grams. The serosal surface is pink and smooth with diffuse areas of red stippling and a defect measuring 0.5 cm in greatest dimension. The uterus is bivalved to reveal a everett, lush endometrial cavity measuring 1.5 cm in length and 0.7 cm from cornu to cornu. Three subserosal and intramural leiomyomatous nodules are seen ranging from 0.3 to 0.7 cm in greatest dimension. No polyps or lesions are identified. The endometrium measures 0.1 cm in thickness, and the pale pink, trabecular myometrium measures 1.0 cm in thickness. The first attached violaceous, fimbriated fallopian tube measures 4.8 cm in length and 0.6 cm in diameter. The first white, rubbery ovary measures 3.2 x 1.7 x 0.8 cm and weighs 3 grams. The ovary is sectioned to reveal the usual pink-everett homogeneous cut surfaces with a possible white corporis albicans cyst measuring 1.0 cm in greatest dimension. The second violaceous, fimbriated fallopian tube measures 3.4 cm in length and 0.6 cm in diameter. No paratubal cysts are seen. The attached corresponding white, rubbery ovary measures 2.2 x 1.4 x 0.7 cm and weighs 2 grams. The ovary is sectioned to reveal the usual pink to white homogeneous parenchyma with no abnormality seen. Tunnel Elastic [employer] Chainstitch sections are submitted as follows: A1-A2: Anterior and posterior endomyometrium. A3: Leiomyomatous nodules. A4: First fallopian tube. A5: First ovary. A6: Second fallopian tube. A7: Second ovary. (:[id number]) Additional full-thickness sections are submitted in cassettes A8-A10. (:[id number]) /MRV 02/27/2023 1051 Local . 01 Pathologist provided ICD-10: G43.821, D25.9, R10.2 . 01 CPT . 755394 Specimen Comment: A courtesy copy of this report has been sent to [phone] Performed at: 01 [facility], [facility] [address] [place] [address], [place], [place] [id number] MD Rudy Freitas MD Phone: [phone]
[2023-02-21] MEDS: LACTATED RINGERS 1,000 ML 42 ML IV (09:59)
--- NOTE | 2023-02-21 10:30 | PM.GYNHP.1 ---
History of Present Illness History of Present Illness Narrative: Cecelia Ellis is a 57 year old female 2 para 1 who presents for laparoscopic supracervical hysterectomy/bilateral salpingo-oophorectomy/rectocele repair. This is being done due to a fibroid uterus, hormonally mediated migraines, and a symptomatic rectocele. [facility] Medical History (Updated 02/08/23 @ 14:32 by Chayito Orr MD) Arthritis Asthma Bruises easily Constipation Fibromyalgia Former smoker Gastroparesis Greater trochanteric bursitis of right hip Heart murmur History of pneumonia Low blood sugar Malignant hyperthermia (~12/2014) Menstrual migraine, not intractable, without status migrainosus Migraines Osteoarthritis Piriformis syndrome Sacral dysfunction Tear of acetabular labrum Surgical History (Updated 02/18/23 @ 09:04 by Sarah Shelton RN) History of foot surgery (01/2016) History of surgery (07/10/19) History of third molar tooth extraction (1984) History of thyroidectomy (12/21/14) Status post endometrial ablation (12/21/14) Status post laparoscopy (1982) Status post laparoscopy (2001) Family History Mother Stroke Grandmother Cancer Father Heart disease Grandfather Heart disease Grandfather Stomach cancer Social History marital status: unknown household members: none occupational status: employed Smoking Status: Former smoker alcohol intake: current substance use type: does not use Meds Home Medications and Allergies Home Medications Medication Instructions Recorded Confirmed Type cholecalciferol (vitamin D3) 25 1,000 unit PO DAILY 04/29/18 01/08/23 History mcg (1,000 unit) capsule diphenhydramine 25 1 tab PO BEDTIME PRN Sleep 04/29/18 01/08/23 History mg-acetaminophen 500 mg tablet (Tylenol PM Extra Strength) diphenhydramine-acetaminophen PO BEDTIME 08/19/19 01/08/23 History [Tylenol PM] lactobacillus combination no.8 PO DAILY 10/20/19 01/08/23 History [Adult Probiotic] mecobalamin (vitamin B12) 1,000 1,000 mcg sublingual DAILY 10/20/19 01/08/23 History mcg disintegrating tablet,sublingual pantoprazole 20 mg tablet,delayed 20 mg PO DAILY 10/20/19 01/08/23 History release melatonin 10 mg capsule 5 mg PO BEDTIME Sleep 02/03/20 01/08/23 History polyethylene glycol 3350 17 gram 17 gram PO DAILY PRN 02/03/20 01/08/23 History oral powder packet (Miralax) doxylamine succinate 25 mg tablet 25 mg PO BEDTIME PRN 05/09/21 01/08/23 History (Unisom (doxylamine)) eye support PO 05/09/21 01/08/23 History levothyroxine 100 mcg tablet 100 mcg PO DAILY 08/16/21 01/08/23 History prednisone 10 mg tablet 5 mg PO DAILY 08/16/21 01/08/23 History galcanezumab-gnlm 120 mg/mL 120 mg SUBCUT QMONTH 11/23/21 01/08/23 History subcutaneous pen injector (Emgality Pen) levonorgestrel-ethinyl estradiol See Rx Instructions .Route 04/24/22 01/08/23 Rx 0.1 mg-20 mcg tablet (Falmina (28)) .COMPLEX #112 tabs cyclobenzaprine 10 mg tablet 10 mg PO TID PRN muscle spasm #21 07/04/22 01/08/23 Rx tabs rizatriptan 10 mg tablet (Maxalt) 10 mg PO Q2H PRN Migraine Headache 07/21/22 01/08/23 Rx #9 tabs Methotrexate PO 10/30/22 01/08/23 History propranolol 20 mg tablet 20 mg PO ONCE 12/26/22 01/08/23 History duloxetine 30 mg capsule,delayed 30 mg PO DAILY #90 caps 02/04/23 02/04/23 Rx release (Cymbalta) estradiol 0.05 mg/24 hr semiweekly 1 patch transdermal 2XW #8 ea 02/08/23 02/08/23 Rx transdermal patch (Cassidy) tramadol 50 mg tablet 50 mg PO Q4H PRN pain #20 tabs 02/19/23 Rx Allergies Allergy/AdvReac Type Severity Reaction Status Date / Time Sulfa (Sulfonamide Allergy Severe HIVES Verified 01/08/23 13:33 Antibiotics) [SULFA (SULFONAMIDE ANTIBIOTICS)] codeine [CODEINE] Allergy Mild NAUSEA Verified 04/25/23 13:33 SENSITIVE TO NARCOTICS Allergy Severe NAUSEA Uncoded 01/08/23 13:33 Exam Vital Signs (past 8 hours): - 02/21/23 09:48 Temperature 98.1 F Pulse Rate 78 Respiratory Rate 16 Blood Pressure 145/72 H Pulse Oximetry 98 Oxygen Delivery Method Room Air Oxygen Delivery Method Room Air Narrative Exam Narrative: HEENT: No thyromegaly, no anterior cervical or supraclavicular lymphadenopathy. Lungs:Clear to auscultation bilaterally, no wheezes. Cardiovascular: Regular rate and rhythm, no murmurs, rubs, or gallops. Abdomen: Well-healed laparoscopy scars. No hepatosplenomegaly. No masses palpable. External genitalia: Normal Vagina: Third-degree rectocele. Cervix: Normal Bimanual exam: 7 Week size anteverted uterus. Mobile. No adnexal masses or tenderness Rectal: Rectocele Extremities: Multiple bruises. No edema Assessment & Plan Assessment & Plan narrative: Assessment: 57-year-old 2 para 1 with a fibroid uterus, hormonally mediated migraines, and a symptomatic rectocele Plan: Laparoscopic supracervical hysterectomy/bilateral salpingo-oophorectomy/rectocele repair The risks, benefits, and alternatives to the procedure were explained to the patient. The risks including bleeding, infection, injury to the bowel, bladder, ureters, or rectum. She understands that there is also a possibility of an open procedure. She understands all of these risks and agrees to proceed. A full par Q was held and consent form was signed. Time Spent With Patient Time with patient: less than 30 minutes
--- NOTE | 2023-02-21 10:33 | PM.PREOP ---
Pre-operative Note COVID-19 Criteria for continued procedure: Non-surgical alternatives not available or appropriate per current SOC Interval Note History & Physical reviewed/Exam performed by Physician: Yes Changes to H&P: No H&P completed within 30 days and has changed as indicated here:: 02/21/23
--- NOTE | 2023-02-21 11:27 | SUR.HOLD ---
Patient to bay 3 in phase 2 area from OR 2. Patient being monitored until she returns to the OR for her surgery. Will continue to monitor.
[2023-02-21] MEDS: CEFAZOLIN 2 GM/100 ML PREMIX 100 ML IV (12:05)
[2023-02-21] MEDS: ACETAMINOPHEN IV 1,000 MG/100 ML VIAL 400 MG IV (12:10)
--- NOTE | 2023-02-21 12:51 | SUR.OPER ---
Lithotomy on padded OR bed. [place] Pad Positioner under torso. Head on pillow, arms padded and tucked at sides. Legs secured in padded yellow fins stirrups.
[2023-02-21] MEDS: BUPIVACAINE 0.25% (PF) 30 ML, EPINEPHrine 0.15 MG INJ (13:12)
[2023-02-21] MEDS: ROPIVACAINE 0.2% PF 2 MG/ML 20ML AMP 20 ML INJ (13:16)
--- NOTE | 2023-02-21 14:33 | PM.GYNOP.1 ---
Operative Date/Time/Diagnoses Date of procedure: 02/21/23 Time of procedure: 14:34 Pre-op diagnosis: Six week size retroverted uterus Normal tubes and ovaries Second-degree rectocele Post-op diagnosis: same Procedure & Clinicians Procedure: Procedures Operation Date: 02/21/23 11:00 Actual Procedure Side Surgeon p Laparoscopic Supracervical Hysterectomy w/ bilateral salpingo-oophorectomy Chayito Orr MD s rectocele repair (posterior colporrhaphy) Chayito Orr MD Indications: Hormonally mediated migraines Fibroid uterus Symptomatic rectocele Surgeon: Chayito Orr Fiber Optic Assembly Worker: Cary Melendez Anesthesia Type: General and Local Operative Notes Findings: Six week size retroverted uterus Normal tubes and ovaries Second-degree rectocele Closure Type: primary Specimen(s): left tube & ovary, right tube & ovary and uterus Applied: catheter (To continuous drainage) Estimated blood loss (mL): 50 Blood products transfused: none Procedure in detail: The patient was taken to the operating room where she was placed in the dorsal supine position. After adequate general endotracheal anesthesia was achieved, she was placed in the dorsal lithotomy position, and prepped and draped in the usual sterile fashion. A timeout was performed. A bivalve speculum was placed into the vagina and the anterior lip of the cervix grasped with a single-tooth tenaculum. The cervical os was sequentially dilated until the ZUMI uterine manipulator could pass easily into the endometrial cavity. The single-tooth tenaculum was removed from the anterior lip of the cervix, and the bivalve speculum was removed from the vagina. Attention was then turned to the abdomen where 6 mL of half percent Marcaine with epinephrine were injected in the umbilical fold. A 5 mm incision was made. The veress needle was placed into the peritoneal cavity, and its placement confirmed by aspiration and drop test. The veress needle was removed. A 5 mm trocar was placed without difficulty. The abdomen was insufflated with 4 L of CO2. 2 other incisions were made 4 cm lateral to the umbilicus after 5 mL of half percent Marcaine with epinephrine were injected. These were 5 mm incisions. Two, 5 mm trochars were placed under direct visualization. The right tube and ovary were grasped with an atraumatic grasper. Using the power seal the infundibulopelvic ligaments was cauterized and cut. The mesosalpinx was cauterized and cut all the way down to the cornua of the uterus. The cornua of the uterus was then grasped with an atraumatic grasper. The utero-ovarian ligaments were cauterized and cut. The round ligament and broad ligament were cauterized and cut with the power seal. Hemostasis was achieved. The bladder flap was created using the power seal with cautery and cut senior care across. The uterine arteries on the right side were extensively cauterized with the power seal. All of this was repeated on the left side. The remainder of the bladder flap was created using the power seal, and the bladder taken down off the lower uterine segment and cervix. Using the [place], the cervix was amputated from the uterus 2 cm above the uterosacral ligaments, after the ZUMI uterine manipulator was removed from the uterus and a moistened sponge stick was placed in the vagina. There was a small amount of bleeding noted from the posterior edge of the cervix, and this was cauterized for hemostasis. 6 mL of half percent Marcaine with epinephrine were injected above the pubic symphysis. A 12mm incision was made. A 12 mm trocar was placed under direct visualization. The large endobag was placed into the pelvis and the uterus, tubes, and ovaries were placed into the bag. The trocar was removed. The edges of the bag were brought up through the incision. An Jared was placed into the bag. The uterus, tubes, and ovaries were morcellated in approximately 7 pieces. The Endobag and Jared were removed from the peritoneal cavity. The abdomen was re-insufflated with carbon dioxide gas. The pelvis was copiously irrigated with warm normal saline. No bleeding was noted. 20 mL of 0.2% ropivacaine were placed over the pelvic pedicles. The instruments were removed from the abdomen. The CO2 was allowed to escape. The trocars were removed. The suprapubic incision was closed on the fascia with 0 Vicryl. All of the incisions were closed with 4-0 Biosyn in a subcuticular fashion. Steri strips and Allevyn dressings were placed over the incisions. The moistened sponge stick was removed from the vagina. Sponge, lap, and instrument counts were correct x 2. The patient tolerated the procedure well, was taken to PACU in stable condition. Complications: none Post-operative Condition: stable Disposition: PACU Plan for aftercare: To acute care after recovery
[2023-02-21] MEDS: KETOROLAC 30 MG/ML VIAL IV ×2 (15:12→20:44)
[2023-02-21] MEDS: LACTATED RINGERS 1,000 ML 100 ML IV (15:12)
[2023-02-21] MEDS: ONDANSETRON 4 MG/2 ML INJ IV (15:12)
[2023-02-21] MEDS: TRAMADOL 50 MG TABLET PO ×2 (16:06→23:19)
[2023-02-21] MEDS: ACETAMINOPHEN 325 MG TABLET 650 MG PO ×2 (18:41→23:19)
--- NOTE | 2023-02-21 20:30 | PC.NURSE ---
Previous PERL DEVELOPER forgot to chart patients post op vitals. 1535: T: 96.7 RR: 20 P: 55 O2: 94% BP: 128/60 1605: T:96.7 RR: 20 P: 62 O2: 94% BP: 132/61 (85) 1705: T:96.6 RR: 19 P: 86 O2: 95% BP: 93/63 (68) 1805: T: 97.2 RR: 22 P: 82 O2: 94% BP: 130/69 (82)
[2023-02-21] MEDS: DOCUSATE 100 MG CAPSULE 200 MG PO (20:44)
[2023-02-22] MEDS: LACTATED RINGERS 1,000 ML 100 ML IV ×2 (01:12→07:02)
[2023-02-22 05:30] VITALS: BP 117/57; PULSE 80; RESP 17; TEMP 36.4; O2SAT 98
[2023-02-22] MEDS: ACETAMINOPHEN 325 MG TABLET 650 MG PO ×2 (05:34→11:35)
[2023-02-22] MEDS: KETOROLAC 30 MG/ML VIAL IV ×2 (05:34→08:26)
[2023-02-22] MEDS: LEVOTHYROXINE 100 MCG TABLET PO (06:04)
--- NOTE | 2023-02-22 06:42 | PC.NURSE ---
IV fluids d/c, pt PO intake and output excellent. Vaginal packing removed, moderately saturated with sanguinous drainage. Leroy removed, patient up and ambulating in room without difficulty.
[2023-02-22 06:58] LABS: Add Manual Diff / Slide Review NO; Basophils Absolute Auto 0 /uL (0-100); Basophils Percent Auto 0.2 % (0-2); Eosinophils Absolute Auto 0 /uL (0-450); Hematocrit 29.6 % (36-46); Hemoglobin 9.3 g/dL (12.0-16.0); Lymphocytes Absolute Auto 900 /uL (1100-4500); Lymphocytes Percent Auto 6.8 % (25-40); Mean Corpuscular HGB Conc 31.6 % (30-36); Mean Corpuscular Hemoglobin 25.5 PG (26-34); Mean Corpuscular Volume 80.9 fL (80-100); Monocytes Absolute Auto 600 /uL (0-900); Monocytes Percent Auto 4.4 % (3-14); Neutrophils Absolute Auto 11400 /uL (1500-7000); Neutrophils Percent Auto 88.6 % (50-75); Platelet Count 302 X10^3/uL (150-400); Red Blood Cell Count 3.66 X10^6/uL (4.0-5.2); Red Cell Distribution Width 16.8 % (11.6-14.8); White Blood Cell Count 12.9 X10^3/uL (4.5-11.0)
[2023-02-22 08:13] VITALS: BP 111/52; PULSE 67; RESP 16; TEMP 36.7; O2SAT 100
[2023-02-22] MEDS: DULOXETINE 30 MG CAPSULE PO (08:26)
[2023-02-22] MEDS: PANTOPRAZOLE DR 20 MG TABLET PO (08:26)
[2023-02-22] MEDS: DOCUSATE 100 MG CAPSULE 200 MG PO (08:26)
[2023-02-22] MEDS: predniSONE 5 MG TABLET PO (08:27)
[2023-02-22] MEDS: TRAMADOL 50 MG TABLET PO (11:35)
--- NOTE | 2023-02-22 12:00 | PC.NURSE ---
Day shift: Discharge instructions gone over with patient and patient's daughter. All questions answered, patient stated understanding. PIV d/c'ed. Pain adequately controlled. No nausea. Tolerating general diet. Pt up independently in room. Abdominal dressings CDI. Leroy removed by window covering sales consultant RN at 0600 - patient voided at 1000 and post void residual was 17mL. Patient discharged home with daughter. Patient left via wheelchair with eufemia Ricketts. Pt's sister and pt's daughter accompanied her.
--- NOTE | 2023-02-25 22:21 | P.DS_ITS ---
History of Present Illness History of Present Illness Date Patient Seen: 02/22/23 Time Patient Seen: 10:30 Chief complaint: OPB Narrative: Patient is a 57-year-old 2 para 1 who underwent a laparoscopic supracervical hysterectomy with bilateral salpingo-oophorectomy and a posterior repair on February 21, 2023. Her postoperative course was unremarkable. Her Leroy catheter was removed and she was able to void without the catheter. Her pain was well controlled. She tolerated a diet. No nausea or vomiting. She was ambulating independently. She is discharged home on postop day #1. Discharge Providers Provider Date of admission: 02/21/23 Discharge Date: 02/22/23 Primary care physician: Cole Lowe MD Discharge provider: Chayito Orr MD Summary Hospital Course Discharge Diagnosis: Enlarged fibroid uterus Hormonally mediated migraine headaches Hospital Course: Patient presented on February 21, 2023 for a scheduled laparoscopic supracervical hysterectomy with bilateral salpingo-oophorectomy and a posterior repair. She underwent these procedures without complication. Her postoperative course was unremarkable. Her vaginal packing was removed on postop day #1. She had mi nimal bleeding. She was discharged home on postop day #1. She tolerated diet. She was able to void without the catheter. No nausea or vomiting. Pain was well controlled. She was ambulating independently. Status at Discharge Functional status at discharge: independent ambulation Overall status at discharge: patient is progressing back to baseline Time Spent with Patient Time spent: Less than 30 minutes Exam Vital Signs (past 8 hours): Oxygen Delivery Method Room Air Oxygen Flow Rate 0 Narrative Exam Narrative: Generally: Patient is sitting up in bed, no acute distress Lungs: Clear to auscultation bilaterally Cardiovascular: Regular rate and rhythm Abdomen: Soft, appropriately tender, good bowel sounds. Incisions: Clean dry and intact with Allevyn dressings Perineum: Dry Extremities: No edema, negative Homans Objective Labs 02/22/23 06:30 [facility] Medical History (Updated 02/08/23 @ 14:32 by Chayito Orr MD) Arthritis Asthma Bruises easily Constipation Fibromyalgia Former smoker Gastroparesis Greater trochanteric bursitis of right hip Heart murmur History of pneumonia Low blood sugar Malignant hyperthermia (~12/2014) Menstrual migraine, not intractable, without status migrainosus Migraines Osteoarthritis Piriformis syndrome Sacral dysfunction Tear of acetabular labrum Surgical History (Updated 02/18/23 @ 09:04 by Sarah Shelton RN) History of foot surgery (01/2016) History of surgery (07/10/19) History of third molar tooth extraction (1984) History of thyroidectomy (12/21/14) Status post endometrial ablation (12/21/14) Status post laparoscopy (1982) Status post laparoscopy (2001) Family History Mother Stroke Grandmother Cancer Father Heart disease Grandfather Heart disease Grandfather Stomach cancer Social History marital status: unknown household members: none occupational status: employed Smoking Status: Former smoker alcohol intake: current substance use type: does not use Discharge Assessment & Plan Assessment and Plan Assessment: Assessment: 57-year-old 2 para 1 postop day # 1 status post laparoscopic supracervical hysterectomy/bilateral salpingo-oophorectomy/posterior repair Patient doing very well Plan of Treatment: Plan: Discharge to home Follow-up in 2 weeks Discharge Plan Discharge Plan Patient Disposition: Home Provider Discharge Comment: Call with fever, chills, redness or drainage around the incisions, or bleeding vaginally more than spotting to light Ibuprofen 600 mg every 6 hours Tylenol 650 mg every 6 hours Stool softeners initially twice a day, then taper off as needed Push oral fluids Patient has tramadol prescription Discharge orders & Medications Discharge Orders: Discharge (Order); Ordered 02/22/23 Ordered By: Chayito Orr Prescriptions: Continued Emgality Pen 120 mg/mL pen injector 120 mg SUBCUT QMONTH cyclobenzaprine 10 mg tablet 10 mg PO TID PRN (Reason: muscle spasm) Qty: 21 0RF rizatriptan [Maxalt] 10 mg tablet 10 mg PO Q2H MDD 20mg PRN (Reason: Migraine Headache) Qty: 9 11RF Methotrexate 1 tab PO propranolol 20 mg tablet 20 mg PO ONCE tramadol 50 mg tablet 50 mg PO Q4H PRN (Reason: pain) Qty: 20 0RF cholecalciferol (vitamin D3) 1,000 unit capsule 1,000 unit PO DAILY melatonin 10 mg capsule 5 mg PO BEDTIME estradiol [Cassidy] 0.05 mg/24 hr patch semiweekly 1 patch transdermal 2XW Qty: 8 11RF Unisom (doxylamine) 25 mg tablet 25 mg PO BEDTIME PRN (Reason: Sleep) prednisone 10 mg tablet 5 mg PO DAILY levothyroxine 100 mcg tablet 100 mcg PO DAILY Rx Instructions: 6days/week duloxetine [Cymbalta] 30 mg capsule,delayed release(DR/EC) 30 mg PO DAILY Qty: 90 0RF polyethylene glycol 3350 [Miralax] 17 gram powder in packet 17 gram PO DAILY PRN (Reason: Constipation) pantoprazole 20 mg tablet,delayed release (DR/EC) 20 mg PO DAILY lactobacillus combination no.8 1 tab PO DAILY mecobalamin (vitamin B12) 1,000 mcg tablet,disintegrating 1,000 mcg SL DAILY Discontinued levonorgestrel-ethinyl estrad [Falmina (28)] 0.1-20 mg-mcg tablet See Rx Instructions .ROUTE .COMPLEX Qty: 112 3RF Dose Instruction: take 1 tablet by mouth daily continuously skipping placebo week Rx Instructions: take 1 tablet by mouth daily continuously skipping placebo week diphenhydramine-acetaminophen [Tylenol PM Extra Strength] 25-500 mg tablet 1 tab PO BEDTIME PRN (Reason: Sleep) diphenhydramine-acetaminophen 1 tab PO BEDTIME Follow up/Referrals: Chayito Orr MD [Physician] - (Postoperative visits already scheduled) Diet/Activity/Treatments Diet: Regular Activity: No heavy lifting for 6 weeks Nothing in the vagina for 6 weeks Skin/Wound/Dressing Care Report to your healthcare provider any signs of infection, such as:: chills, fever, increased pain, unusual drainage and unusual redness Dressing: Remove outer pink dressings with attached gauze in 3 days after morning shower Leave Steri-Strips in place Visit Report/Discharge Packet Instructions: DI for Cystocele and Rectocele Repair, DI for Hysterectomy, DI for Laparoscopy, DI for Prescription Opioid Use Stand Alone Forms: Patient Portal/API, Surgery Discharge Discharge Data Primary Care Provider: Cole Lowe Attending Provider: Chayito Orr Quality VTE Deep Vein Thrombosis/Pulmonary Embolism Present on Admission: No
--- NOTE | 2023-02-25 23:33 | P.DS_ITS ---
History of Present Illness History of Present Illness Date Patient Seen: 02/23/23 Time Patient Seen: 11:00 Chief complaint: OPB Narrative: Patient is a 57-year-old 2 para 1 who underwent a laparoscopic supracervical hysterectomy with bilateral salpingo-oophorectomy and a posterior repair on February 21, 2023. Her postoperative course was unremarkable. Her Leroy catheter was removed and she was able to void without the catheter. Her pain was well controlled. She tolerated a diet. No nausea or vomiting. She was ambulating independently. She is discharged home on postop day #1. Discharge Providers Provider Discharge Date: 02/22/23 Primary care physician: Cole Lowe MD Discharge provider: Chayito Orr MD Summary Hospital Course Discharge Diagnosis: Enlarged fibroid uterus Hormonally mediated migraines Status post laparoscopic supracervical hysterectomy/bilateral salpingo- oophorectomy/posterior repair Hospital Course: Patient is a 57-year-old who presented on February 21, 2023 for a scheduled laparoscopic supracervical hysterectomy/bilateral salpingo- oophorectomy/posterior repair. She underwent these procedures without complication. On postop day # 1 she was tolerating a diet, voided without the catheter, pain well controlled, ambulating independently, no nausea or vomiting. She was discharged home to follow-up in 2 weeks. Status at Discharge Cognitive/behavioral status at discharge: oriented Functional status at discharge: independent ambulation Overall status at discharge: patient is progressing back to baseline Time Spent with Patient Time spent: Less than 30 minutes Exam Vital Signs (past 8 hours): Oxygen Delivery Method Room Air Oxygen Flow Rate 0 Objective Labs 02/22/23 06:30 [facility] Medical History (Updated 02/08/23 @ 14:32 by Chayito Orr MD) Arthritis Asthma Bruises easily Constipation Fibromyalgia Former smoker Gastroparesis Greater trochanteric bursitis of right hip Heart murmur History of pneumonia Low blood sugar Malignant hyperthermia (~12/2014) Menstrual migraine, not intractable, without status migrainosus Migraines Osteoarthritis Piriformis syndrome Sacral dysfunction Tear of acetabular labrum Surgical History (Updated 02/18/23 @ 09:04 by Sarah Shelton RN) History of foot surgery (01/2016) History of surgery (07/10/19) History of third molar tooth extraction (1984) History of thyroidectomy (12/21/14) Status post endometrial ablation (12/21/14) Status post laparoscopy (1982) Status post laparoscopy (2001) Family History Mother Stroke Grandmother Cancer Father Heart disease Grandfather Heart disease Grandfather Stomach cancer Social History marital status: unknown household members: none occupational status: employed Smoking Status: Former smoker alcohol intake: current substance use type: does not use Discharge Assessment & Plan Assessment and Plan Assessment: Assessment: 57-year-old 2 para 1 postop day # 1 status post laparoscopic supracervical hysterectomy/bilateral salpingo-oophorectomy/posterior repair Patient doing very well Plan of Treatment: Plan: Discharge to home Follow-up in 2 weeks Discharge Plan Discharge Plan Patient Disposition: Home Provider Discharge Comment: Call with fever, chills, redness or drainage around the incisions, or bleeding vaginally more than spotting to light Ibuprofen 600 mg every 6 hours Tylenol 650 mg every 6 hours Stool softeners initially twice a day, then taper off as needed Push oral fluids Patient has tramadol prescription Discharge orders & Medications Discharge Orders: Discharge (Order); Ordered 02/22/23 Ordered By: Chayito Orr Prescriptions: Continued Emgality Pen 120 mg/mL pen injector 120 mg SUBCUT QMONTH cyclobenzaprine 10 mg tablet 10 mg PO TID PRN (Reason: muscle spasm) Qty: 21 0RF rizatriptan [Maxalt] 10 mg tablet 10 mg PO Q2H MDD 20mg PRN (Reason: Migraine Headache) Qty: 9 11RF Methotrexate 1 tab PO propranolol 20 mg tablet 20 mg PO ONCE tramadol 50 mg tablet 50 mg PO Q4H PRN (Reason: pain) Qty: 20 0RF cholecalciferol (vitamin D3) 1,000 unit capsule 1,000 unit PO DAILY melatonin 10 mg capsule 5 mg PO BEDTIME estradiol [Cassidy] 0.05 mg/24 hr patch semiweekly 1 patch transdermal 2XW Qty: 8 11RF Unisom (doxylamine) 25 mg tablet 25 mg PO BEDTIME PRN (Reason: Sleep) prednisone 10 mg tablet 5 mg PO DAILY levothyroxine 100 mcg tablet 100 mcg PO DAILY Rx Instructions: 6days/week duloxetine [Cymbalta] 30 mg capsule,delayed release(DR/EC) 30 mg PO DAILY Qty: 90 0RF polyethylene glycol 3350 [Miralax] 17 gram powder in packet 17 gram PO DAILY PRN (Reason: Constipation) pantoprazole 20 mg tablet,delayed release (DR/EC) 20 mg PO DAILY lactobacillus combination no.8 1 tab PO DAILY mecobalamin (vitamin B12) 1,000 mcg tablet,disintegrating 1,000 mcg SL DAILY Discontinued levonorgestrel-ethinyl estrad [Falmina (28)] 0.1-20 mg-mcg tablet See Rx Instructions .ROUTE .COMPLEX Qty: 112 3RF Dose Instruction: take 1 tablet by mouth daily continuously skipping placebo week Rx Instructions: take 1 tablet by mouth daily continuously skipping placebo week diphenhydramine-acetaminophen [Tylenol PM Extra Strength] 25-500 mg tablet 1 tab PO BEDTIME PRN (Reason: Sleep) diphenhydramine-acetaminophen 1 tab PO BEDTIME Follow up/Referrals: Chayito Orr MD [Physician] - (Postoperative visits already scheduled) Diet/Activity/Treatments Diet: Regular Activity: No heavy lifting for 6 weeks Nothing in the vagina for 6 weeks Skin/Wound/Dressing Care Report to your healthcare provider any signs of infection, such as:: chills, fever, increased pain, unusual drainage and unusual redness Dressing: Remove outer pink dressings with attached gauze in 3 days after morning shower Leave Steri-Strips in place Visit Report/Discharge Packet Instructions: DI for Cystocele and Rectocele Repair, DI for Hysterectomy, DI for Laparoscopy, DI for Prescription Opioid Use Stand Alone Forms: Patient Portal/API, Surgery Discharge Discharge Data Primary Care Provider: Cole Lowe Attending Provider: Chayito Orr Quality VTE Deep Vein Thrombosis/Pulmonary Embolism Present on Admission: No
== END 2023-02-22 12:18 | disposition home or self-care (01) ==
LOC: OR 08:27 → AC 08:27
PROVIDERS: Family Provider Student in an Organized Health Care Education/Training Program; PCP Pediatrics; Referring Provider Obstetrics & Gynecology; Visit Provider Obstetrics & Gynecology
PROC: 0UT94ZL Resection of Uterus, Supracervical, Percutaneous Endoscopic Approach (ICD-10-PCS; CPT 58542; principal; 2023-02-21 11:00)
PROC: (CPT 58542; 2023-02-21 11:00)
DX: D25.2 Subserosal leiomyoma of uterus (principal); G43.809 Other migraine, not intractable, without status migrainosus; N81.6 Rectocele; N83.10 Corpus luteum cyst of ovary, unspecified side; N83.299 Other ovarian cyst, unspecified side; D25.1 Intramural leiomyoma of uterus
CPT/HCPCS: 58542; 57250; 36415; 85025; J0131; J0171; J0690; J1100; J1885; J2250; J2405; J2704; J2795; J3010

== ENCOUNTER → 2023-06-26 14:53 | Outpatient (CLI) | payer OTHER, MEDICAID, SELFPAY ==
[2023-02-21 15:04] VITALS: BMI 36.2
--- NOTE | 2023-06-26 15:15 | DI.RAD.S_ITS ---
PROCEDURE: XR KNEE RT 1TO2V INDICATIONS: Pain in unspecified joint TECHNIQUE: 3 views of the knee were acquired. COMPARISON: [facility], , KNEE 3V LEFT, 05/22/2017, 16:54. FINDINGS: Bones: No fractures or dislocations. No suspicious bony lesions. Mild medial compartment joint space narrowing Soft tissues: No joint effusion. No suspicious soft tissue calcifications. IMPRESSION: Stable mild medial compartment joint space narrowing Approved by: Bobby Raza M.D. on 06/26/2023 at 17:17
--- NOTE | 2023-06-26 15:15 | DI.RAD.S_ITS ---
PROCEDURE: XR KNEE LT 1TO2V INDICATIONS: Pain in unspecified joint TECHNIQUE: 3 views of the knee were acquired. COMPARISON: [facility], , KNEE 3V LEFT, 05/22/2017, 16:54. FINDINGS: Bones: No fractures or dislocations. No suspicious bony lesions. Mild medial compartmental joint space narrowing Soft tissues: No joint effusion. No suspicious soft tissue calcifications. IMPRESSION: Stable mild medial compartment joint space narrowing Approved by: Bobby Raza M.D. on 06/26/2023 at 17:16
--- NOTE | 2023-06-26 15:15 | DI.RAD.S_ITS ---
PROCEDURE: XR JOINT SURVEY INDICATIONS: Pain in unspecified joint TECHNIQUE: Single PA view of both hands. COMPARISON: [facility], CR, XR HAND RT 2V, 12/18/2021, 11:59. [facility], CR, XR HAND LT 2V, 12/18/2021, 12:00. FINDINGS: Bones: No acute fractures or dislocations. No suspicious bony lesions. Mild degenerative changes are seen at the 1st carpometacarpal joints bilaterally. Remaining visualized joint spaces are grossly maintained. No focal osseous erosion is seen. Normal osseous alignment. Soft tissues: No suspicious soft tissue calcifications. IMPRESSION: Mild bilateral 1st carpometacarpal joint osteoarthrosis. No signs of an inflammatory arthritis. Approved by: Karthik Oconnor M.D. on 06/26/2023 at 18:32
[2023-06-26 16:24] LABS: Add Manual Diff / Slide Review NO; Basophils Absolute Auto 100 /uL (0-100); Basophils Percent Auto 0.6 % (0-2); Eosinophils Absolute Auto 100 /uL (0-450); Eosinophils Percent Auto 0.5 % (2-4); Hematocrit 30.8 % (36-46); Hemoglobin 9.8 g/dL (12.0-16.0); Lymphocytes Absolute Auto 1200 /uL (1100-4500); Lymphocytes Percent Auto 8.7 % (25-40); Mean Corpuscular HGB Conc 31.7 % (30-36); Mean Corpuscular Hemoglobin 24.9 PG (26-34); Mean Corpuscular Volume 78.7 fL (80-100); Monocytes Absolute Auto 500 /uL (0-900); Monocytes Percent Auto 4.1 % (3-14); Neutrophils Absolute Auto 11400 /uL (1500-7000); Neutrophils Percent Auto 86.1 % (50-75); Platelet Count 388 X10^3/uL (150-400); Red Blood Cell Count 3.92 X10^6/uL (4.0-5.2); Red Cell Distribution Width 16.5 % (11.6-14.8); White Blood Cell Count 13.2 X10^3/uL (4.5-11.0)
[2023-06-26 16:43] LABS: Alanine Aminotransferase 35 IU/L (<35); Albumin 4.1 g/dL (3.5-5.0); Albumin Globulin Ratio 1.4 (1.0-2.8); Alkaline Phosphatase 70 U/L (38-126); Aspartate Aminotransferase 33 IU/L (14-36); Bilirubin Total 0.2 mg/dL (0.2-1.3); Blood Urea Nitrogen 17 mg/dL (7-17); Calcium 9.1 mg/dL (8.4-10.2); Carbon Dioxide 27 mmol/L (22-32); Chloride 102 mmol/L (98-107); Estimated Glomerular Filt Rate > 60 mL/min (>60); Globulin 2.9 g/dL (1.7-4.1); Glucose 110 mg/dL (70-100); HEMOLYSIS 19 (0-50); Potassium 4.3 mmol/L (3.4-5.1); Sodium 136 mmol/L (137-145)
[2023-06-26 17:58] LABS: Erythrocyte Sedimentation Rate 32 MM/HR (0-20)
== END ==
PROVIDERS: Family Provider Student in an Organized Health Care Education/Training Program; PCP Family Medicine; Referring Provider Physician Assistant; Visit Provider Physician Assistant
DX: M06.09 Rheumatoid arthritis without rheumatoid factor, multiple sites (principal); M79.7 Fibromyalgia; M17.0 Bilateral primary osteoarthritis of knee
CPT/HCPCS: 36415; 73560; 77077; 80053; 85025; 85651; 86140

== ENCOUNTER → 2023-08-15 14:33 | Outpatient (CLI) | payer OTHER, MEDICAID, SELFPAY ==
[2023-02-21 15:04] VITALS: BMI 36.2
--- NOTE | 2023-08-15 | DI.MG.S_ITS ---
BILATERAL DIGITAL SCREENING MAMMOGRAM 3D/2D WITH CAD: 08/15/2023 CLINICAL: Routine screening. Family history of breast cancer. Comparison is made to exams dated: 06/27/2022 mammogram, 05/19/2021 mammogram, and 04/14/2020 mammogram - [facility]. There are scattered areas of fibroglandular density in both breasts (category b / 25%-50% glandular tissue). Current study was also evaluated with a Computer Aided Detection (CAD) system. No significant masses, calcifications, or other findings are seen in either breast. IMPRESSION: NEGATIVE There is no mammographic evidence of malignancy. A 1 year screening mammogram is recommended. Based on the Tyrer Cuzick model (a risk assessment model) the patient's lifetime risk is 8.1% and her 10 year risk is 2.6%. According to the ACR, ACS, and NCCN guidelines, an annual breast MRI exam along with mammogram is recommended if the patient's lifetime risk is 20% or greater. This exam was interpreted at Station ID: [id number]. NOTE: For mammograms, a report in lay terms will be sent to the patient. Approximately 15% of breast malignancies will not be visualized mammographically. In the management of a palpable breast mass, a negative mammogram must not discourage biopsy of a clinically suspicious lesion. Electronically Signed By: Elaine Locke M.D., PH.D abby/salvador:08/18/2023 00:40:08 letter sent: Normal Exam ACR BI-RADS Category 1: Negative [id number]
== END ==
PROVIDERS: Family Provider Student in an Organized Health Care Education/Training Program; PCP Family Medicine; Referring Provider Family Medicine; Visit Provider Family Medicine
DX: Z12.31 Encounter for screening mammogram for malignant neoplasm of breast (principal); Z80.3 Family history of malignant neoplasm of breast
CPT/HCPCS: 77063; 77067

== ENCOUNTER → 2024-02-13 14:45 | Oncology outpatient (ONC) | payer OTHER, MEDICAID, SELFPAY ==
[2023-02-21 15:04] VITALS: BMI 36.2
[2024-02-06] MEDS: IRON SUCROSE 200 MG in SODIUM CHLORIDE 0.9% 100 ML 220 MG IV (14:37)
[2024-02-06 15:32] VITALS: BP 119/66; PULSE 75; RESP 16; TEMP 36.6; O2SAT 100
--- NOTE | 2024-02-06 15:34 | PC.NURSE ---
FIRST IRON SUCROSE INFUSION: PATIENT TOLERATED WITHOUT PROBLEMS.
[2024-02-13 15:11] VITALS: BP 130/54; PULSE 89; RESP 16; TEMP 36.3; O2SAT 100
[2024-02-13] MEDS: IRON SUCROSE 200 MG in SODIUM CHLORIDE 0.9% 100 ML 220 MG IV (15:33)
== END ==
PROVIDERS: Family Provider Student in an Organized Health Care Education/Training Program; PCP Family Medicine; Referring Provider Family Medicine; Visit Provider Family Medicine
DX: D50.9 Iron deficiency anemia, unspecified (principal)
CPT/HCPCS: 96365; 99213; J1756

== ENCOUNTER 2024-02-18 11:22 | Emergency (ER) | payer OTHER, MEDICAID, SELFPAY ==
[2023-02-21 15:04] VITALS: BMI 36.2
[2024-02-18 11:48] VITALS: BP 118/70; PULSE 76; RESP 18; TEMP 37; O2SAT 99; BMI 35.2
--- NOTE | 2024-02-18 15:52 | ED.RECABL ---
HPI - Recheck/Abnormal Lab/Rx <Celina Christopher, DO - Last Filed: 02/23/24 07:32> General Chief Complaint: Recheck/Abnormal Lab/Rx Stated Complaint: Side effect from Iron Infusion 5 days ago Time Seen by Provider: 02/18/24 14:50 Source: patient Mode of arrival: Ambulatory History of Present Illness HPI narrative: Patient is a 58-year-old female with history of idiopathic gastroparesis anemia presenting today with ongoing abdominal pain and nausea. She reports that she received her 2nd IV iron infusion on which was 5 days ago she has had increasing abdominal pain and back pain since then. She continues to have nausea which is not new for her she does not have any vomiting. No fever chills chest pain or lightheadedness. She reports that she has not had any abdominal surgery she has not passing gas and not had a bowel movement despite multiple enemas and other attempts at home. Related Data Home Medications Medication Instructions Recorded Confirmed cholecalciferol (vitamin D3) 25 1,000 unit PO DAILY 04/29/18 02/06/24 mcg (1,000 unit) capsule lactobacillus combination no.8 1 tab PO DAILY 10/20/19 02/06/24 [Adult Probiotic] pantoprazole 20 mg tablet,delayed 20 mg PO DAILY 10/20/19 02/06/24 release polyethylene glycol 3350 17 gram 17 gram PO DAILY PRN Constipation 02/03/20 02/06/24 oral powder packet (Miralax) doxylamine succinate 25 mg tablet 25 mg PO BEDTIME PRN Sleep 05/09/21 02/06/24 (Unisom (doxylamine)) levothyroxine 100 mcg tablet 100 mcg PO DAILY 08/16/21 02/06/24 methylprednisolone 4 mg tablet 6 mg PO DAILY 06/26/23 02/06/24 melatonin 10 mg capsule 60 mg PO BEDTIME Sleep 07/17/23 02/06/24 Previous Rx's Medication Instructions Recorded rizatriptan 10 mg tablet (Maxalt) 10 mg PO Q2H PRN Migraine Headache 07/21/22 #9 tabs ondansetron 4 mg disintegrating 4 mg PO Q6-8H PRN nausea and 03/07/23 tablet vomiting #30 tabs cyclobenzaprine 10 mg tablet 10 mg PO TID PRN muscle spasm #21 12/27/23 tabs Allergies Allergy/AdvReac Type Severity Reaction Status Date / Time Sulfa (Sulfonamide Allergy Severe HIVES Verified 02/06/24 13:06 Antibiotics) [SULFA (SULFONAMIDE ANTIBIOTICS)] codeine [CODEINE] Allergy Mild NAUSEA Verified 02/06/24 13:06 SENSITIVE TO NARCOTICS Allergy Severe NAUSEA Uncoded 02/06/24 13:06 Patient History <DO Eduin Garrison Last Filed: 02/23/24 07:32> Medical History Menstrual migraine, not intractable, without status migrainosus Tear of acetabular labrum Piriformis syndrome Gastroparesis Sacral dysfunction Greater trochanteric bursitis of right hip Former smoker Bruises easily Low blood sugar Constipation Arthritis History of pneumonia Heart murmur Malignant hyperthermia (~12/2014) Fibromyalgia Osteoarthritis Asthma Migraines Surgical History History of surgery (07/10/19) History of foot surgery (01/2016) Status post endometrial ablation (12/21/14) History of thyroidectomy (12/21/14) Status post laparoscopy (2001) Status post laparoscopy (1982) History of third molar tooth extraction (1984) Family History Mother Stroke Grandmother Cancer Father Heart disease Grandfather Heart disease Grandfather Stomach cancer Social History marital status: unmarried,single household members: none lives independently: Yes occupational status: employed Smoking Status: Former smoker Tobacco: How many years used: 10 alcohol intake: current (1-2 drinks weekly ) substance use type: does not use Smoking Status: Former smoker alcohol intake frequency: holidays/special occasions only Substance Use Type: does not use Exam <DO Eduin Garrison Last Filed: 02/23/24 07:32> Initial Vital Signs Initial Vital Signs: Vital Signs Temperature 98.6 F 02/18/24 11:48 Pulse Rate 76 02/18/24 11:48 Respiratory Rate 18 02/18/24 11:48 Blood Pressure 118/70 02/18/24 11:48 Pulse Oximetry 99 02/18/24 11:48 Oxygen Delivery Method Room Air 02/18/24 11:48 GENERAL: Alert pleasant 58-year-old female and in no acute distress. HEENT: Head atraumatic,EOMI, pupils reactive, face symmetric, moist mucous membranes CARDIOVASCULAR: Regular rate and rhythm without murmurs, rubs or gallops. RESPIRATORY: Breath sounds equal bilaterally, no wheezes rales or rhonchi. ABDOMEN: Soft, distended nontender decreased bowel sounds EXTREMITIES: Normal range of motion, no clubbing or edema. Neurovascularly intact NEUROLOGICAL: Alert and oriented x4.Normal gait and speech. Cranial nerves II through XII grossly intact. SKIN: Warm, dry, no laceration, no petechiae, no rashes or lesions. <Yung Ozuna MD - Last Filed: 02/18/24 20:13> Initial Vital Signs Initial Vital Signs: Vital Signs Temperature 98.6 F 02/18/24 11:48 Pulse Rate 76 02/18/24 11:48 Respiratory Rate 18 02/18/24 11:48 Blood Pressure 118/70 02/18/24 11:48 Pulse Oximetry 99 02/18/24 11:48 Oxygen Delivery Method Room Air 02/18/24 11:48 Course <Celina White DO - Last Filed: 02/23/24 07:32> Orders Ordered: ED Orders 02/18/24 16:20 Complete Blood Count AUTO DIFF Stat Comprehensive Metabolic Panel Stat Lipase Stat 02/18/24 16:51 CT abdomen pelvis w con Stat Vital Signs Vital signs: Vital Signs - 8 hr 02/18/24 17:27 02/18/24 18:48 Pulse Rate 77 80 Respiratory Rate 16 12 Blood Pressure 133/87 114/73 Pulse Oximetry 98 95 Oxygen Delivery Method Room Air Room Air <Yung Ozuna MD - Last Filed: 02/18/24 20:13> Orders Ordered: ED Orders 02/18/24 16:20 Complete Blood Count AUTO DIFF Stat Comprehensive Metabolic Panel Stat Lipase Stat 02/18/24 16:51 CT abdomen pelvis w con Stat Vital Signs Vital signs: Vital Signs - 8 hr 02/18/24 17:27 02/18/24 18:48 Pulse Rate 77 80 Respiratory Rate 16 12 Blood Pressure 133/87 114/73 Pulse Oximetry 98 95 Oxygen Delivery Method Room Air Room Air MDM - Recheck/Abnormal Lab/Rx <Celina White DO - Last Filed: 02/23/24 07:32> Lab Data 02/18/24 16:20 02/18/24 16:20 Labs: Lab Results 02/18/24 Range/Units 16:20 WBC 11.0 (4.5-11.0) X10^3/uL RBC 4.56 (4.0-5.2) X10^6/uL Hgb 10.8 L (12.0-16.0) g/dL Hct 35.3 L (36-46) % MCV 77.3 L (80-100) fL MCH 23.6 L (26-34) PG MCHC 30.5 (30-36) % RDW 21.5 H (11.6-14.8) % Plt Count 366 (150-400) X10^3/uL Neut % (Auto) 82.0 H (50-75) % Lymph % (Auto) 12.5 L (25-40) % Bowie % (Auto) 4.5 (3-14) % Eos % (Auto) 0.3 L (2-4) % Baso % (Auto) 0.7 (0-2) % Neut # (Auto) 9000 H (6965-2680) /uL Lymph # (Auto) 1400 (5624-0906) /uL Bowie # (Auto) 500 (0-900) /uL Eos # (Auto) 0 (0-450) /uL Baso # (Auto) 100 (0-100) /uL RBC Morphology See below Anisocytosis 2+ H Sodium 138 (137-145) mmol/L Potassium 3.8 (3.4-5.1) mmol/L Chloride 105 (98-107) mmol/L Carbon Dioxide 29 (22-32) mmol/L BUN 19 H (7-17) mg/dL Creatinine 0.78 (0.52-1.04) mg/dL Estimated GFR > 60 (>60) mL/min BUN/Creatinine Ratio 24.4 H (6-22) Glucose 117 H (70-100) mg/dL Calcium 8.8 (8.4-10.2) mg/dL Total Bilirubin 0.4 (0.2-1.3) mg/dL AST 33 (14-36) IU/L ALT 38 H (<35) IU/L Alkaline Phosphatase 82 (38-126) U/L Total Protein 7.1 (6.3-8.2) g/dL Albumin 4.3 (3.5-5.0) g/dL Globulin 2.8 (1.7-4.1) g/dL Albumin/Globulin Ratio 1.5 (1.0-2.8) Lipase 77 (23-300) U/L MDM Narrative Medical decision making narrative: Patient 58-year-old female history of anemia gastroparesis presenting today with ongoing abdominal pain and back pain. Concern for abdominal pathology. Blood work and CT pending. Patient signed out to Dr. Ozuna. She is offered pain medication but declines at this time. Laith, 02/18/2024 at 1640, singout from Dr White. 58-year-old female with history of gastroparesis, anemia, completed recent iron transfusion 2nd dose on , now with abdominal discomfort, last bowel movement couple of days ago, nauseated without emesis. Declines pain medications when offered. Labs pending. CT abdomen and pelvis imaging anticipated. Assumed interim care. Labs unremarkable. CT abdomen and pelvis showed no acute changes. Patient discharge, we will not use any other iron infusions. We will follow up with her PCP <Yung Ozuna MD - Last Filed: 02/18/24 20:13> Lab Data Attestation: I reviewed the patient's lab results. Labs: Lab Results 02/18/24 Range/Units 16:20 WBC 11.0 (4.5-11.0) X10^3/uL RBC 4.56 (4.0-5.2) X10^6/uL Hgb 10.8 L (12.0-16.0) g/dL Hct 35.3 L (36-46) % MCV 77.3 L (80-100) fL MCH 23.6 L (26-34) PG MCHC 30.5 (30-36) % RDW 21.5 H (11.6-14.8) % Plt Count 366 (150-400) X10^3/uL Neut % (Auto) 82.0 H (50-75) % Lymph % (Auto) 12.5 L (25-40) % Bowie % (Auto) 4.5 (3-14) % Eos % (Auto) 0.3 L (2-4) % Baso % (Auto) 0.7 (0-2) % Neut # (Auto) 9000 H (0239-7809) /uL Lymph # (Auto) 1400 (7970-4093) /uL Bowie # (Auto) 500 (0-900) /uL Eos # (Auto) 0 (0-450) /uL Baso # (Auto) 100 (0-100) /uL RBC Morphology See below Anisocytosis 2+ H Sodium 138 (137-145) mmol/L Potassium 3.8 (3.4-5.1) mmol/L Chloride 105 (98-107) mmol/L Carbon Dioxide 29 (22-32) mmol/L BUN 19 H (7-17) mg/dL Creatinine 0.78 (0.52-1.04) mg/dL Estimated GFR > 60 (>60) mL/min BUN/Creatinine Ratio 24.4 H (6-22) Glucose 117 H (70-100) mg/dL Calcium 8.8 (8.4-10.2) mg/dL Total Bilirubin 0.4 (0.2-1.3) mg/dL AST 33 (14-36) IU/L ALT 38 H (<35) IU/L Alkaline Phosphatase 82 (38-126) U/L Total Protein 7.1 (6.3-8.2) g/dL Albumin 4.3 (3.5-5.0) g/dL Globulin 2.8 (1.7-4.1) g/dL Albumin/Globulin Ratio 1.5 (1.0-2.8) Lipase 77 (23-300) U/L [facility] Narrative Medical decision making narrative: Patient 58-year-old female history of anemia gastroparesis presenting today with ongoing abdominal pain and back pain. Concern for abdominal pathology. Blood work and CT pending. Patient signed out to Dr. Ozuna. She is offered pain medication but Laith, 02/18/2024 at 1640, singout from Dr White. 58-year-old female with history of gastroparesis, anemia, completed recent iron transfusion 2nd dose on , now with abdominal discomfort, last bowel movement couple of days ago, nauseated without emesis. Declines pain medications when offered. Labs pending. CT abdomen and pelvis imaging anticipated. Assumed interim care. Labs unremarkable. CT abdomen and pelvis showed no acute changes. Patient discharge, we will not use any other iron infusions. We will follow up with her PCP Discharge Plan Departure Patient Disposition: Home Clinical Impression: Abdominal pain, Muscular aches Activity Restrictions/Additional Instructions: Muscle aches and abdominal discomfort, after recent IV iron infusion. Serum studies unremarkable. CT abdomen and pelvis did not show any acute changes. Muscle aches you experienced on your previous IV iron infusion as well, likely related. Unclear if iron infusion was related to your abdominal discomfort, if there is some other cause. You could consider use of magnesium citrate or MiraLax or other laxative medications, although the report did not really mention any colonic stool or constipation like changes. There was mention of diverticulosis but there was no infectious diverticulitis changes at the time of scanning. It is possible also may have some acid related problems, you could consider antacid treatments as well. You were given a copy of your CT scan report. Follow up with your regular provider later this week to review your symptoms. Return to this/nearest emergency department for any change worsening symptoms or any concerns prior Prescriptions: No Action rizatriptan [Maxalt] 10 mg tablet 10 mg PO Q2H MDD 20mg PRN (Reason: Migraine Headache) Qty: 9 11RF cholecalciferol (vitamin D3) 1,000 unit capsule 1,000 unit PO DAILY ondansetron 4 mg tablet,disintegrating 4 mg PO Q6-8H PRN (Reason: nausea and vomiting) Qty: 30 0RF melatonin 10 mg capsule 60 mg PO BEDTIME Unisom (doxylamine) 25 mg tablet 25 mg PO BEDTIME PRN (Reason: Sleep) levothyroxine 100 mcg tablet 100 mcg PO DAILY Rx Instructions: 6days/week methylprednisolone 4 mg tablet 6 mg PO DAILY cyclobenzaprine 10 mg tablet 10 mg PO TID PRN (Reason: muscle spasm) Qty: 21 0RF polyethylene glycol 3350 [Miralax] 17 gram powder in packet 17 gram PO DAILY PRN (Reason: Constipation) pantoprazole 20 mg tablet,delayed release (DR/EC) 20 mg PO DAILY lactobacillus combination no.8 1 tab PO DAILY Referrals: Cinthia Ramos DO [Primary Care Provider] - Stand Alone Forms: Patient Portal/API
[2024-02-18 16:29] LABS: Add Manual Diff / Slide Review NO; Basophils Absolute Auto 100 /uL (0-100); Basophils Percent Auto 0.7 % (0-2); Eosinophils Absolute Auto 0 /uL (0-450); Eosinophils Percent Auto 0.3 % (2-4); Hematocrit 35.3 % (36-46); Hemoglobin 10.8 g/dL (12.0-16.0); Lymphocytes Absolute Auto 1400 /uL (1100-4500); Lymphocytes Percent Auto 12.5 % (25-40); Mean Corpuscular HGB Conc 30.5 % (30-36); Mean Corpuscular Hemoglobin 23.6 PG (26-34); Mean Corpuscular Volume 77.3 fL (80-100); Monocytes Absolute Auto 500 /uL (0-900); Monocytes Percent Auto 4.5 % (3-14); Neutrophils Absolute Auto 9000 /uL (1500-7000); Platelet Count 366 X10^3/uL (150-400); Red Blood Cell Count 4.56 X10^6/uL (4.0-5.2); Red Cell Distribution Width 21.5 % (11.6-14.8)
[2024-02-18 16:47] LABS: Alanine Aminotransferase 38 IU/L (<35); Albumin 4.3 g/dL (3.5-5.0); Albumin Globulin Ratio 1.5 (1.0-2.8); Alkaline Phosphatase 82 U/L (38-126); Aspartate Aminotransferase 33 IU/L (14-36); BUN Creatinine Ratio 24.4 (6-22); Bilirubin Total 0.4 mg/dL (0.2-1.3); Blood Urea Nitrogen 19 mg/dL (7-17); Calcium 8.8 mg/dL (8.4-10.2); Carbon Dioxide 29 mmol/L (22-32); Chloride 105 mmol/L (98-107); Estimated Glomerular Filt Rate > 60 mL/min (>60); Globulin 2.8 g/dL (1.7-4.1); Glucose 117 mg/dL (70-100); HEMOLYSIS < 15 (0-50); Lipase 77 U/L (23-300); Potassium 3.8 mmol/L (3.4-5.1); Sodium 138 mmol/L (137-145); Total Protein 7.1 g/dL (6.3-8.2)
--- NOTE | 2024-02-18 16:51 | DI.CT.S_ITS ---
PROCEDURE: CT ABDOMEN PELVIS W CON INDICATIONS: pain nausea not passing gas TECHNIQUE: After the administration of intravenous contrast, axial sections acquired from the lung bases to the pubic symphysis. Coronal and sagittal reformats were performed. For radiation dose reduction, the following was used: automated exposure control, adjustment of mA and/or kV according to patient size. COMPARISON: [facility], CT, CT ABDOMEN PELVIS W CON, 08/14/2022, 15:26. FINDINGS: Image quality: Diagnostic. Lower Chest: No significant findings. ABDOMEN: Liver: No solid mass. Hepatic steatosis. Patent portal vein. Gallbladder: No radiopaque gallstones or wall thickening. Biliary ducts: No biliary dilation. Pancreas: No ductal dilation. Spleen: Size is within normal limits. Adrenal Glands: No adrenal nodules. Kidneys and Ureters: No hydronephrosis. No solid mass. No complex renal cystic lesion which requires follow up. Stomach and Bowel: Normal colonic caliber, without significant wall thickening. Colonic diverticulosis without evidence of diverticulitis. Normal appendix. Peritoneum: No abnormal intraperitoneal fluid. No free air. Ventral Wall: No significant ventral hernia. Small umbilical hernia containing fat. Abdominal Nodes: No retroperitoneal or mesenteric adenopathy by size criteria. Vessels: Aorta and inferior vena cava are normal in size. PELVIS: Pelvic Organs: Unremarkable. Bladder: No bladder wall thickening, accounting for underdistention. Pelvic Nodes: No enlarged lymph nodes. Miscellaneous: No inguinal hernias are seen. Bones: No aggressive osseous abnormality. IMPRESSION: No acute abnormality. Normal appendix. No nephrolithiasis or hydronephrosis. Colonic diverticulosis without evidence of diverticulitis. Normal gallbladder. Dictated by: Diallo Matthews M.D. on 02/18/2024 at 17:03 Approved by: Diallo Matthews M.D. on 02/18/2024 at 17:06
[2024-02-18 16:54] LABS: Anisocytosis 2+
[2024-02-18 17:27] VITALS: BP 133/87; PULSE 77; RESP 16; O2SAT 98
[2024-02-18 18:48] VITALS: BP 114/73; PULSE 80; RESP 12; O2SAT 95
== END 2024-02-18 18:32 | disposition home or self-care (01) ==
PROVIDERS: Emergency Medicine; Emergency Provider Emergency Medicine; Family Provider Student in an Organized Health Care Education/Training Program; PCP Family Medicine
DX: R10.9 Unspecified abdominal pain (principal); M79.10 Myalgia, unspecified site; R11.0 Nausea
CPT/HCPCS: 36415; 74177; 80053; 83690; 85025; 99283; 99284; Q9967

== ENCOUNTER 2024-04-03 12:02 | Day surgery (SDC) | payer OTHER, MEDICAID, SELFPAY ==
[2023-02-21 15:04] VITALS: BMI 36.2
--- NOTE | 2024-04-03 | PATH_ITS ---
[facility] Accession Number: [id number] No. of containers..01 Tissue . 01 Material submitted: . gastrointestinal site - GASTRIC BIOPSY . 01 Diagnosis: STOMACH, BIOPSY: Antral mucosa with mild chronic gastritis and focal features suggestive of nearby erosion. No evidence of Helicobacter on H/E stain. Negative for intestinal metaplasia. Negative for dysplasia and malignancy. [facility] 04/07/2024 0847 Local . 01 Electronically signed: . Karey Flowers MD, Pathologist NPI- [id number] . 01 Gross description: . Received in formalin, labeled with two patient identifiers and gastric biopsy, is a single everett soft tissue fragment measuring 0.4 cm in greatest dimension. Submitted in cassette A1. ([id number]) /FRR 04/04/2024 1443 Local . 01 Pathologist provided ICD-10: R10.13 . 01 CPT . 204335 Specimen Comment: A courtesy copy of this report has been sent to [phone] Performed at: [address] [id number] MD Rudy Freitas MD Phone: [phone]
[2024-04-03 12:21] VITALS: BP 144/90; PULSE 91; RESP 18; TEMP 36.1; O2SAT 100
[2024-04-03] MEDS: LACTATED RINGERS 1,000 ML 42 ML IV (12:45)
--- NOTE | 2024-04-03 13:18 | PM.HP.1 ---
History of Present Illness History of Present Illness Date Patient Seen: 04/03/24 Time Patient Seen: 13:19 Chief complaint: SDC Narrative: 58-year-old woman with anemia here for diagnostic upper and lower endoscopy.. No interval change in health. [facility] Medical History Menstrual migraine, not intractable, without status migrainosus Tear of acetabular labrum Piriformis syndrome Gastroparesis Sacral dysfunction Greater trochanteric bursitis of right hip Former smoker Bruises easily Low blood sugar Constipation Arthritis History of pneumonia Heart murmur Malignant hyperthermia (~12/2014) Fibromyalgia Osteoarthritis Asthma Migraines Surgical History History of surgery (07/10/19) History of foot surgery (01/2016) Status post endometrial ablation (12/21/14) History of thyroidectomy (12/21/14) Status post laparoscopy (2001) Status post laparoscopy (1982) History of third molar tooth extraction (1984) Family History Mother Stroke Grandmother Cancer Father Heart disease Grandfather Heart disease Grandfather Stomach cancer Social History marital status: unmarried,single household members: none lives independently: Yes occupational status: employed Smoking Status: Former smoker Tobacco: How many years used: 10 alcohol intake: current substance use type: does not use Meds Home Medications and Allergies Home Medications Medication Instructions Recorded Confirmed Type cholecalciferol (vitamin D3) 25 1,000 unit PO DAILY 04/29/18 04/03/24 History mcg (1,000 unit) capsule lactobacillus combination no.8 1 tab PO DAILY 10/20/19 02/06/24 History [Adult Probiotic] pantoprazole 20 mg tablet,delayed 20 mg PO DAILY 10/20/19 02/06/24 History release polyethylene glycol 3350 17 gram 17 gram PO DAILY PRN Constipation 02/03/20 02/06/24 History oral powder packet (Miralax) doxylamine succinate 25 mg tablet 25 mg PO BEDTIME PRN Sleep 05/09/21 04/03/24 History (Unisom (doxylamine)) levothyroxine 100 mcg tablet 100 mcg PO DAILY 08/16/21 04/03/24 History rizatriptan 10 mg tablet (Maxalt) 10 mg PO Q2H PRN Migraine Headache 07/21/22 02/06/24 Rx #9 tabs ondansetron 4 mg disintegrating 4 mg PO Q6-8H PRN nausea and 03/07/23 04/03/24 Rx tablet vomiting #30 tabs methylprednisolone 4 mg tablet 6 mg PO DAILY 06/26/23 04/03/24 History melatonin 10 mg capsule 60 mg PO BEDTIME Sleep 07/17/23 04/03/24 History cyclobenzaprine 10 mg tablet 10 mg PO TID PRN muscle spasm #21 12/27/23 04/03/24 Rx tabs phentermine 37.5 mg tablet 37.5 mg PO DAILY #30 tabs 02/26/24 02/26/24 Rx Allergies Allergy/AdvReac Type Severity Reaction Status Date / Time Sulfa (Sulfonamide Allergy Severe HIVES Verified 04/03/24 12:52 Antibiotics) [SULFA (SULFONAMIDE ANTIBIOTICS)] codeine [CODEINE] Allergy Mild NAUSEA Verified 04/03/24 12:52 SENSITIVE TO NARCOTICS Allergy Severe NAUSEA Uncoded 04/03/24 12:52 Exam Vital Signs (past 8 hours): - 04/03/24 12:21 Temperature 97.0 F L Pulse Rate 91 H Respiratory Rate 18 Blood Pressure 144/90 H Pulse Oximetry 100 Oxygen Delivery Method Room Air Oxygen Delivery Method Room Air Narrative Exam Narrative: General adult woman alert oriented no acute distress Chest nonlabored respiration Extremities warm well perfused Assessment & Plan Assessment & Plan narrative: 58-year-old woman with anemia here for diagnostic esophagogastroduodenoscopy and colonoscopy. Technical details were discussed. Risks, benefits, alternatives explained. Risks including but not limited to myocardial infarction, aspiration, bleeding, pain, missed lesion, incomplete examination, need for further radiographic studies, intestinal injury, and need for major abdominal surgery were discussed. All questions were answered to their satisfaction, and they are in agreement with this plan. Time-Based Coding :: [TOTAL MINUTES] spent with patient and on the chart (including review of chart, obtaining history, exam, reviewing outside data, placing orders, documenting exam and treatment plan, and counseling patient) on [DATE].
[2024-04-03 13:56] VITALS: BP 107/66; PULSE 73; RESP 14; TEMP 36.9; O2SAT 97
--- NOTE | 2024-04-03 13:58 | PM.OP.EC ---
Operative Date/Time/Diagnoses Date of procedure: 04/03/24 Time of procedure: 13:58 Pre-op diagnosis: Anemia Post-op diagnosis: other (Gastritis) Procedure & Clinicians Study performed: Esophagogastroduodenoscopy and colonoscopy Same procedure as scheduled: Yes Indications: Anemia Surgeon: Jelani Melendez Procedure Notes Procedure in detail: The history and physical was performed/updated and the patient is ASA class is 2. The procedure was discussed in detail with the patient. Potential risks complications including infection, bleeding, missed diagnosis, perforation, need for surgery, and were explained. Their questions were answered and informed consent was obtained. Patient placed in left lateral decubitus position. Time out was performed. Procedural sedation was administered by Anesthesia. A bite block was placed. the scope was inserted into the mouth and advanced through the esophagus and into the stomach. the pylorus was intubated and the duodenum was examined to the 2nd portion.. The scope was retroflexed within the stomach. The stomach was then decompressed and scope pulled back to the GE junction. The scope was then removed Examination began with a thorough inspection of the perianal area there was no evidence of fissures, fistulae, external hemorrhoids or cutaneous malignancy. The colonoscopy scope was then placed into the anal canal and was advanced to the cecum, which was identified by the ileocecal valve, the appendiceal orifice and the confluence of the taenia. The scope was then slowly withdrawn examining colon thoroughly in all directions, irrigating it of any residual stool. FINDINGS Linear ulcerations within the stomach. Biopsy of the stomach taken with forceps. No active hemorrhage Unremarkable colonoscopy without polyps or mass The patient tolerated the procedure well. They will be discharged once criteria are met. The prep was of good/excellent quality. The withdrawl time was 6 minutes. Findings: gastritis Specimen(s): other (Gastric) Impression: Gastritis Post-procedure Recommendations: Colonscopy in 10 years Plan for aftercare: Increase pantoprazole to 20 mg twice daily Disposition: same day surgery
[2024-04-03 13:59] VITALS: BP 107/64; PULSE 72; RESP 16; O2SAT 96
[2024-04-03 14:05] VITALS: BP 120/73; PULSE 75; RESP 18; O2SAT 100
[2024-04-03 14:10] VITALS: BP 128/71; PULSE 68; RESP 18; TEMP 36.1; O2SAT 100
[2024-04-03 14:14] VITALS: BP 133/76; PULSE 67; RESP 18; O2SAT 99
== END 2024-04-03 14:27 | disposition home or self-care (01) ==
PROVIDERS: Family Provider Student in an Organized Health Care Education/Training Program; PCP Family Medicine; Referring Provider Surgery; Visit Provider Surgery
PROC: 0DJ08ZZ Inspection of Upper Intestinal Tract, Via Natural or Artificial Opening Endoscopic (ICD-10-PCS; CPT 43235; principal; 2024-04-03 13:00)
PROC: 0DJD8ZZ Inspection of Lower Intestinal Tract, Via Natural or Artificial Opening Endoscopic (ICD-10-PCS; CPT 45378; 2024-04-03 13:00)
DX: D64.9 Anemia, unspecified (principal); K29.50 Unspecified chronic gastritis without bleeding
CPT/HCPCS: 45378; 43239; J2704

== ENCOUNTER → 2024-08-17 11:45 | Outpatient (CLI) | payer OTHER, MEDICAID, SELFPAY ==
[2024-07-06 09:28] VITALS: BMI 36.2
--- NOTE | 2024-08-17 11:47 | DI.US.S_ITS ---
PROCEDURE: US SOFT TISSUE HEAD AND NECK INDICATIONS: POST OPERATIVE HYPOTHROIDISM TECHNIQUE: Real-time scanning was performed of the neck region of interest, with image documentation. COMPARISON: None. FINDINGS: Status post right thyroidectomy without nodularity in the post operative bed. The left lobe measures 3.0 x 1.2 x 1.5 cm. There are no left-sided nodules. IMPRESSION: Status post right hemithyroidectomy without nodularity. Dictated by: Jose Owen M.D. on 08/17/2024 at 16:30 Approved by: Jose Owen M.D. on 08/17/2024 at 16:31
== END ==
PROVIDERS: Family Provider Student in an Organized Health Care Education/Training Program; PCP Family Medicine; Referring Provider Student in an Organized Health Care Education/Training Program; Visit Provider Student in an Organized Health Care Education/Training Program
DX: E89.0 Postprocedural hypothyroidism (principal)
CPT/HCPCS: 76536

== ENCOUNTER → 2024-08-17 11:48 | Outpatient (CLI) | payer OTHER, MEDICAID, SELFPAY ==
[2024-07-06 09:28] VITALS: BMI 36.2
--- NOTE | 2024-08-17 11:48 | DI.MG.S_ITS ---
BILATERAL DIGITAL SCREENING MAMMOGRAM 3D/2D WITH CAD: 08/17/2024 CLINICAL: Routine screening. Family history of breast cancer. Comparison is made to exams dated: 08/15/2023 mammogram, 06/27/2022 mammogram, 05/19/2021 mammogram, 04/14/2020 mammogram, 01/23/2019 mammogram, and 11/01/2017 mammogram - [facility]. There are scattered areas of fibroglandular density (category b / 25%-50% glandular tissue). Current study was also evaluated with a Computer Aided Detection (CAD) system. No significant masses, calcifications, or other findings are seen in either breast. There has been no significant interval change. IMPRESSION: NEGATIVE There is no mammographic evidence of malignancy. A 1 year screening mammogram is recommended. Based on the Tyrer Cuzick model (a risk assessment model) the patient's lifetime risk is 8.2% and her 10 year risk is 2.8%. According to the ACR, ACS, and NCCN guidelines, an annual breast MRI exam along with mammogram is recommended if the patient's lifetime risk is 20% or greater. This exam was interpreted at Station ID: [id number]. NOTE: For mammograms, a report in lay terms will be sent to the patient. Approximately 15% of breast malignancies will not be visualized mammographically. In the management of a palpable breast mass, a negative mammogram must not discourage biopsy of a clinically suspicious lesion. Electronically Signed By: Elaine Locke M.D., Ph.D. abby/salvador:08/19/2024 12:47:47 letter sent: Normal Exam ACR BI-RADS Category 1: Negative
== END ==
PROVIDERS: Family Provider Student in an Organized Health Care Education/Training Program; PCP Family Medicine; Referring Provider Obstetrics & Gynecology; Visit Provider Obstetrics & Gynecology
DX: Z12.31 Encounter for screening mammogram for malignant neoplasm of breast (principal); Z80.3 Family history of malignant neoplasm of breast
CPT/HCPCS: 77063; 77067

== ENCOUNTER → 2024-08-24 14:20 | Outpatient (CLI) | payer OTHER, MEDICAID, SELFPAY ==
[2024-07-06 09:28] VITALS: BMI 36.2
--- NOTE | 2024-08-24 14:21 | DI.US.S_ITS ---
PROCEDURE: US EXTREMELY NONVASC UPPER RT INDICATIONS: RT thumb injury TECHNIQUE: Real-time scanning was performed of the right thumb, with image documentation. COMPARISON: None. FINDINGS: Focused ultrasound examination in lateral aspect of right wrist at the level of 1st metacarpal base shows no discrete soft tissue mass or drainable fluid collection. No gross full-thickness tendon rupture is seen. IMPRESSION: No abnormalities are seen near base of right thumb at patient's reported area of pain. Dictated by: French Laird M.D. on 08/24/2024 at 20:36 Approved by: French Laird M.D. on 08/24/2024 at 20:40
== END ==
LOC: US 14:21
PROVIDERS: Family Provider Student in an Organized Health Care Education/Training Program; PCP Family Medicine; Referring Provider Family Medicine; Visit Provider Family Medicine
DX: M79.644 Pain in right finger(s) (principal)
CPT/HCPCS: 76882

== ENCOUNTER → 2024-10-19 11:15 | Outpatient (CLI) | payer OTHER, SELFPAY ==
[2024-07-06 09:28] VITALS: BMI 36.2
[2024-10-19 12:32] LABS: Progesterone, Total < 0.08 ng/mL
[2024-10-19 12:47] LABS: Estradiol, Total 14.2 pg/mL
[2024-10-20 12:39] LABS: Dehydroepiandrosterone Sulfate 3.7 ug/dL (29.4-220.5)
== END ==
PROVIDERS: Family Provider Student in an Organized Health Care Education/Training Program; PCP Family Medicine; Referring Provider Obstetrics & Gynecology; Visit Provider Obstetrics & Gynecology
DX: N95.9 Unspecified menopausal and perimenopausal disorder (principal)
CPT/HCPCS: 36415; 82627; 82670; 84144

== ENCOUNTER → 2024-10-25 14:30 | Outpatient (CLI) | payer OTHER, SELFPAY ==
[2024-07-06 09:28] VITALS: BMI 36.2
--- NOTE | 2024-10-25 14:32 | DI.RAD.S_ITS ---
PROCEDURE: XR CHEST 2V INDICATIONS: Cough TECHNIQUE: 2 views of the chest were acquired. COMPARISON: [facility], CR, XR CHEST 2V, 02/22/2022, 11:45. FINDINGS: Surgical changes and devices: None. Lungs and pleura: Lungs are clear. No pleural effusions or pneumothorax. Mediastinum: Mediastinal contours are normal. Heart size is normal. Bones and chest wall: No suspicious bony abnormalities. Soft tissues appear unremarkable. IMPRESSION: No acute cardiopulmonary abnormality is seen. Dictated by: Deni Diaz M.D. on 10/25/2024 at 13:58 Approved by: Deni Diaz M.D. on 10/25/2024 at 14:00
== END ==
PROVIDERS: Family Provider Student in an Organized Health Care Education/Training Program; PCP Family Medicine; Referring Provider Nurse Practitioner Family; Visit Provider Nurse Practitioner Family
DX: R05.9 Cough, unspecified (principal)
CPT/HCPCS: 71046

== ENCOUNTER → 2024-12-28 11:05 | Outpatient (CLI) | payer OTHER, SELFPAY ==
[2024-07-06 09:28] VITALS: BMI 36.2
--- NOTE | 2024-12-28 11:06 | DI.RAD.S_ITS ---
PROCEDURE: XR DEXA AXIAL SKELETON INDICATIONS: OSTEOPENIA MULTIPLE SITES COMPARISON: [facility], , XR DEXA AXIAL SKELETON, 08/02/2022, 14:06. FINDINGS: Lumbar Spine: L1-L3. Bone mineral density 0.757 g/cm2, T score -2.4. Left Femoral Neck: Bone mineral density 0.609 g/cm2, T score -2.2. Left Hip: Bone mineral density 0.842 g/cm2, T score -0.8. Fracture Risk Calculation (when applicable): 10-year fracture risk of a major osteoporotic fracture 29 percent and of a hip fracture 5.4 percent. (T score greater or equal to -1.0 to: NORMAL) (T score from -1.1 to -2.4: OSTEOPENIA) (T score less than or equal to -2.5: OSTEOPOROSIS) IMPRESSION: Osteopenia. Follow-up guidelines as follows: Osteoporosis: Consider a repeat DEXA and Vertebral Fracture Assessment (VFA) exam in 2 years or sooner if medically necessary, to reassess this patient's status. Osteopenia: Consider a repeat DEXA in 2-3 years to reassess this patient's status, or if there is a new clinical indication. Normal: Consider a repeat DEXA in 5 years or sooner, or if there is a new clinical indication. All treatment decisions require clinical judgment and consideration of individual patient factors, including patient preferences, comorbidities, previous drug use, risk factors not captured in the FRAX model (e.g., frailty, falls, vitamin D deficiency, increased bone turnover, interval significant decline in bone density ) and possible under- or over-estimation of fracture risk by FRAX. In addition, the NOF Guide recommends that FDA-approved medical therapies be considered in postmenopausal women and men age >= 50 years with a: * Hip or vertebral (clinical or morphometric) fracture * T-score of <=-2.5 at the spine or hip * Ten-year fracture probability by FRAX of >= 3% for hip fracture or >=20% for major osteoporotic fracture. Dictated by: Hitesh Rodarte M.D. on 12/28/2024 at 14:05 Approved by: Hitesh Rodarte M.D. on 12/28/2024 at 14:07
== END ==
PROVIDERS: Family Provider Student in an Organized Health Care Education/Training Program; PCP Family Medicine; Referring Provider Specialist/Technologist Athletic Trainer; Visit Provider Specialist/Technologist Athletic Trainer
DX: M85.89 Other specified disorders of bone density and structure, multiple sites (principal)
CPT/HCPCS: 77080

== ENCOUNTER → 2025-01-25 14:46 | Outpatient (CLI) | payer OTHER, SELFPAY ==
[2024-07-06 09:28] VITALS: BMI 36.2
--- NOTE | 2025-01-25 14:51 | DI.RAD.S_ITS ---
PROCEDURE: FL ARTHROGRAM HIP LT INDICATIONS: Left hip pain, left hip labral tear TECHNIQUE: The indications, alternatives, benefits, risks, and complications of the procedure were explained to the patient. Written informed consent was obtained and placed in the chart. The hip was examined fluoroscopically with the legs fixed in slight internal rotation, and a site for needle placement chosen for entry into the hip joint from an anterior approach. Care was taken to locate the common femoral artery and vein beforehand. The skin was prepped and draped in a sterile fashion, and 1% Lidocaine infiltrated from skin down to joint capsule. A spinal needle was inserted into the joint, and a small amount of iodinated contrast media injected to confirm intra-articular placement of the needle tip. This was followed by approximately 10 mL dilute solution of a gadolinium containing MR contrast agent. The needle was removed and a dressing was applied. The patient was given postprocedural instructions and sent to the MR suite for imaging. COMPARISON: None. FINDINGS: A single fluoroscopic spot image demonstrates intra-articular location of injected iodinated contrast. IMPRESSION: Successful fluoroscopically guided administration of dilute Gadolinium solution into the hip joint for MR arthrogram. Dictated by: Milton Meyer M.D. on 01/26/2025 at 10:58 Approved by: Milton Meyer M.D. on 01/26/2025 at 11:12
--- NOTE | 2025-01-25 14:52 | DI.MRI.S_ITS ---
PROCEDURE: MR HIP LT W CON INDICATIONS: TENDINOPATHY OF LT ROTATOR CUFF TECHNIQUE: After the administration of 10 mL of dilute intra-articular Gadolinium contrast, coronal STIR of the bony pelvis; coronal and oblique axial T1 spin echo with fat saturation, axial T2 fast spin echo with fat saturation, sagittal T1 spin echo with and without fat saturation of the involved hip. COMPARISON: None. FINDINGS: Image quality: Excellent. Bones and joints: Asymmetric moderate left hip joint osteoarthritic changes are seen with joint space narrowing, subchondral sclerosis and marginal osteophyte formation. Geographic area of signal abnormality and edema involving weight-bearing portion of femoral head suggestive of early avascular necrosis of femoral head. No acute fracture or dislocation. No other area of abnormal marrow signal. Mild degenerative disc disease in visualized lower lumbar spine is seen. Tendons and ligaments: Distal left gluteus medius and minimus tendinosis at their insertions greater trochanter is seen. No fluid distension of trochanteric bursa. The nearby proximal iliotibial band also appears intact. The iliopsoas tendon appears intact, without adjacent bursal fluid collections or evidence for impingement syndrome. Tendinosis involving left hamstring tendon origins at ischial tuberosity is seen. Labrum and cartilage: Diffuse thinning of articulating cartilage over left femoral head. There is extensive fraying of superior anterior left acetabular labrum with T2 hyperintense signal and contrast extension consistent with superior anterior labral tear. No paralabral cysts. Soft tissues: Visualized muscles demonstrate normal bulk and internal signal. Quadratus femoris muscle demonstrates no internal edema to suggest ischiofemoral impingement. The proximal sciatic neurovascular bundle appears normal adjacent to the hamstring tendons. No free pelvic fluid. Bladder wall thickness is normal. Genitourinary structures and bowel loops appear normal where visualized. IMPRESSION: 1. Asymmetric moderate left hip joint osteoarthritis with suggestion of avascular necrosis involving lateral weight-bearing portion of femoral head. No acute fracture or dislocation. Degenerative disc disease in visualized lower lumbar spine. 2. Mild distal left gluteus medius and minimus tendinosis. Mild tendinosis involving left hamstring tendon origins at ischial tuberosity. No bursal fluid distension. No other muscle or tendon signal abnormalities. 3. Suggestion of extensive superior anterior left acetabular labral tear. No intra-articular loose bodies. Dictated by: French Laird M.D. on 01/26/2025 at 2:29 Approved by: French Laird M.D. on 01/26/2025 at 2:37
--- NOTE | 2025-01-25 14:52 | DI.MRI.S_ITS ---
PROCEDURE: MR SHOULDER LT WO CON INDICATIONS: TENDINOPATHY OF LT ROTATOR CUFF TECHNIQUE: Noncontrast oblique coronal T2 fast spin echo with fat saturation, oblique sagittal T1 spin echo and T2 fast spin echo with fat saturation, axial T1 spin echo and T2 fast spin echo with fat saturation through the shoulder. COMPARISON: [facility], MR, SHOULDER WITHOUT CONTRAST, 06/19/2017, 18:06. FINDINGS: Image quality: Excellent. Some images are limited by motion, pulsation artifacts. Labrum: New abnormal appearance of the labrum with heterogeneous increased signal intensity of the superior and anterior labrum suspicious for SLAP tear. Specific type is not clearly defined in the absence intra-articular contrast. Rotator cuff: New irregularity and increased T2 weighted signal within and surrounding the distal subscapularis muscle and myotendinous junction suspicious for partial tear some of which may be chronic but without significant muscular fatty atrophy. Remainder of the mid and inferior 2/3 of the subscapularis is normal. New increased T2 weighted signal and thinning of the mid to distal supraspinatus tendon suspicious for tendinopathy and likely partial tear with mild increased subacromial/subdeltoid bursal fluid. Distal supraspinatus tendon is grossly normal with minimal thickening and minimal 3 mm increased T2 weighted signal. No myotendinous retraction, no muscular fatty atrophy. The infraspinatus and teres minor muscles and tendons also do demonstrate mild increased T2 weighted signal distally, mild injury/strain without definitive tear, without retraction or muscular fatty atrophy. Bones and bursae: New moderate to severe diffuse degenerative changes, joint space narrowing, subchondral edema and osteophytes of the acromioclavicular joint. Increased [id number] degenerative changes with joint space narrowing, diffuse cartilaginous thinning and near [id number] configuration of the glenohumeral joint. No fracture or dislocation. Capsule and soft tissues: Mild increased T2 weighted signal and thinning of the distal biceps tendon and biceps anchor. Mild fluid in the biceps tendon sheath is likely a normal physiologic amount. Mild glenohumeral joint fluid slightly more than physiologic amount. Otherwise the visualized portions of the deltoid, axilla, subcutaneous tissues normal IMPRESSION: New labral tear as discussed above. New partial tear of the supraspinatus and subscapularis as discussed above. Increased degenerative changes of the acromioclavicular and glenohumeral joints as discussed above. Trace glenohumeral joint effusion. Other minor findings as above. Follow-up suggested. Dictated by: Milton Meyer M.D. on 01/26/2025 at 14:56 Approved by: Milton Meyer M.D. on 01/26/2025 at 15:53
== END ==
LOC: RAD 14:47
PROVIDERS: Family Provider Student in an Organized Health Care Education/Training Program; PCP Family Medicine; Referring Provider Family Medicine; Visit Provider Orthopaedic Surgery
DX: M16.12 Unilateral primary osteoarthritis, left hip (principal); M51.369 Other intervertebral disc degeneration, lumbar region without mention of lumbar back pain or lower extremity pain; M25.552 Pain in left hip; M75.112 Incomplete rotator cuff tear or rupture of left shoulder, not specified as traumatic; S43.492A Other sprain of left shoulder joint, initial encounter; M67.912 Unspecified disorder of synovium and tendon, left shoulder
CPT/HCPCS: 27093; 73221; 73525; 73722; A9579; Q9967

== ENCOUNTER → 2025-03-10 14:55 | Outpatient (CLI) | payer OTHER, SELFPAY ==
[2024-07-06 09:28] VITALS: BMI 36.2
--- NOTE | 2025-03-10 15:04 | DI.CT.S_ITS ---
PROCEDURE: CT HEAD/BRAIN WO CON INDICATIONS: HEADACHE TECHNIQUE: Noncontrast 4.5 mm thick angled axial sections acquired from the foramen magnum to the vertex, with coronal and sagittal reformats. For radiation dose reduction, the following was used: automated exposure control, adjustment of mA and/or kV according to patient size. COMPARISON: [facility], CT, CT ANGIO HEAD AND NECK, 03/10/2025, 15:14. [facility], CT, HEAD WITHOUT CONTRAST, 05/14/2017, 17:15. [facility], MR, MR HEAD/BRAIN WO CON, 10/20/2021, 14:25. FINDINGS: Image quality: Diagnostic. CSF spaces: Basal cisterns are patent. No extra-axial fluid collections. Ventricles are normal in size and shape. Brain: No midline shift. No intracranial mass effect or hemorrhage. Huerta- white matter interface is normal. Skull and face: Calvarium and visualized facial bones are intact, without suspicious lesions. Sinuses: Visualized sinuses and mastoids are clear. IMPRESSION: No acute intracranial hemorrhage is seen. No acute intracranial pathology. To the limits of this noncontrast study, no findings of intracranial masses or mass effect can be seen. Dictated by: Dangelo Reed M.D. on 03/11/2025 at 15:44 Approved by: Dangelo Reed M.D. on 03/11/2025 at 15:46
--- NOTE | 2025-03-10 15:08 | DI.CT.S_ITS ---
PROCEDURE: CT ANGIO HEAD AND NECK INDICATIONS: MIGRANE TECHNIQUE: After the administration of intravenous contrast, 1 mm thick sections acquired from the aortic arch through the [place] of [place]. 3-dimensional theiqsh-ywaktpzfv-ishagqhosl (MIP) and/or volume rendering reformats were acquired of the central intracranial vasculature and neck separately. For radiation dose reduction, the following was used: automated exposure control, adjustment of mA and/or kV according to patient size. COMPARISON: [facility], CT, CT HEAD/BRAIN WO CON, 03/10/2025, 15:14. [facility], MR, MR HEAD/BRAIN WO CON, 10/20/2021, 14:25. FINDINGS: Image quality: Limited by bolus timing, with venous contamination. Cerebral CT Angiogram: Internal carotid arteries: No acute findings. Intracranial ICA are patent with no significant stenosis. No occlusion. No aneurysm. Anterior cerebral arteries: Unremarkable. No significant stenosis. No occlusion. No aneurysm. Middle cerebral arteries: Unremarkable. No significant stenosis. No occlusion. No aneurysm. Posterior cerebral arteries: There is a type origin of the right posterior cerebral artery. The posterior cerebral arteries are otherwise within normal limits. No significant stenosis. No occlusion. No aneurysm. Basilar artery: Unremarkable. No significant stenosis. No occlusion. No aneurysm. Vertebral arteries: Unremarkable as visualized. Dural venous sinuses: Unremarkable given phase of enhancement. Other: Arterial phase appearance of the brain parenchyma is unremarkable. Neck CT Angiogram: Internal carotid arteries: Unremarkable. No significant stenosis. No dissection or occlusion. Common carotid arteries: Unremarkable. No significant stenosis. No dissection or occlusion. External carotid arteries: Unremarkable. No occlusion. Vertebral arteries: Unremarkable. No significant stenosis. No dissection or occlusion. Aortic Arch and Mediastinum: Partially visualized aortic arch unremarkable without evidence of aneurysm. Origins of the great vessels unremarkable. Other: Arterial phase soft tissues of the neck and chest are unremarkable. IMPRESSION: No imaging explanation is found for this patient's presenting symptoms. No significant intracranial arterial abnormality is seen. No significant abnormality is seen within the arteries of the neck. Any quantitative measurements of stenosis were performed using NASCET criteria. Dictated by: Dangelo Reed M.D. on 03/11/2025 at 15:47 Approved by: Dangelo Reed M.D. on 03/11/2025 at 15:48
== END ==
PROVIDERS: Family Provider Student in an Organized Health Care Education/Training Program; PCP Family Medicine; Visit Provider Physician Assistant
DX: G43.009 Migraine without aura, not intractable, without status migrainosus (principal); R03.0 Elevated blood-pressure reading, without diagnosis of hypertension
CPT/HCPCS: 70450; 70496; 70498; Q9967

== ENCOUNTER → 2025-04-06 12:02 | Outpatient (CLI) | payer OTHER, SELFPAY ==
[2024-07-06 09:28] VITALS: BMI 36.2
--- NOTE | 2025-04-06 12:04 | DI.RAD.S_ITS ---
PROCEDURE: XR KNEE RT 3V INDICATIONS: right knee pain TECHNIQUE: 3 views of the knee were acquired. COMPARISON: [facility], , XR KNEE RT 1TO2V, 06/26/2023, 15:31. FINDINGS: Bones: There are no osseous abnormalities. Joints: Moderate patellofemoral and medial tibial femoral degeneration. Small effusion Soft tissues: Normal IMPRESSION: Moderate degeneration -progressing. small effusion. Dictated by: Rhys Couch M.D. on 04/07/2025 at 13:31 Approved by: Rhys Couch M.D. on 04/07/2025 at 13:32
[2025-04-06 15:13] LABS: Uric Acid 5.1 mg/dL (2.5-6.2)
== END ==
PROVIDERS: Family Provider Student in an Organized Health Care Education/Training Program; PCP Family Medicine; Referring Provider Family Medicine; Visit Provider Family Medicine
DX: M17.11 Unilateral primary osteoarthritis, right knee (principal); M25.561 Pain in right knee; M25.461 Effusion, right knee
CPT/HCPCS: 36415; 73562; 84550

== ENCOUNTER → 2025-07-08 16:10 | Outpatient (CLI) | payer OTHER, SELFPAY ==
[2024-07-06 09:28] VITALS: BMI 36.2
--- NOTE | 2025-07-08 16:11 | DI.MRI.S_ITS ---
PROCEDURE: MR HEAD/BRAIN WO/W CON INDICATIONS: Migraine without aura TECHNIQUE: Noncontrast axial T1 spin echo, axial T2 fast spin echo, sagittal and axial FLAIR, coronal T2 fast spin echo, axial gradient echo, axial diffusion and ADC through the brain. After the administration of contrast, axial and coronal and sagittal 3D VIBE or T1 spin echo with fat saturation through the brain. COMPARISON: [facility], MR, MR CERVICAL SPINE WO/W CON, 07/08/2025, 16:11. [facility], MR, MR HEAD/BRAIN WO/W CON, 01/16/2021, 16:30. FINDINGS: Image quality: Excellent. CSF Spaces: Basal cisterns are patent. No extra-axial fluid collections. Ventricles are normal in size and shape. Brain: No midline shift. No intracranial bleeds or masses. No abnormal intracranial enhancement. The brainstem appears normal. Diffusion-weighted images demonstrate no acute infarct. No chronic ischemic insults. Normal intravascular flow voids are present. No abnormal T2 weighted hyperintense lesions can be seen, including peripherally. Skull and face: Calvarial marrow is normal in signal. Orbits appear normal. Sinuses: Sinuses and mastoids appear clear. IMPRESSION: No imaging explanation is found for this patient's presenting symptoms. No masses or abnormal enhancement can be seen. Dictated by: Dangelo Reed M.D. on 07/08/2025 at 16:25 Approved by: Dangelo Reed M.D. on 07/08/2025 at 16:26
--- NOTE | 2025-07-08 16:12 | DI.MRI.S_ITS ---
PROCEDURE: MR CERVICAL SPINE WO/W CON INDICATIONS: Migraine without aura TECHNIQUE: Noncontrast sagittal T1 spin echo and T2 fast spin echo, sagittal STIR, foraminal oblique sagittal T2 fast spin echo, axial gradient echo or T2 fast spin echo through the cervical spine. After the administration of contrast, axial and sagittal T1 spin echo with fat saturation through the cervical spine. COMPARISON: [facility], CT, CT HEAD/BRAIN WO CON, 03/10/2025, 15:14. [facility], MR, MR HEAD/BRAIN WO/W CON, 07/08/2025, 16:11. FINDINGS: Image quality: Diagnostic, with note made of motion artifact. Alignment and curvature: There is overall straightening of the normal cervical lordosis. No focal AP alignment abnormality is seen. Marrow: Marrow is normal in overall signal, without suspicious enhancement. Spinal cord: Visualized spinal cord has normal size and signal. No cerebellar tonsillar herniation. No abnormal intramedullary enhancement. Paraspinous soft tissues: No paravertebral masses or suspicious enhancement. C2-3: Normal appearance. C3-4: Normal appearance. C4-5: Normal appearance. C5-6: Normal appearance. C6-7: Normal appearance. C7-T1: Normal appearance. IMPRESSION: No significant neural foraminal or central canal narrowing can be seen. Straightening of the normal cervical lordosis is seen, which is commonly observed in patients with muscular spasm. No abnormal signal or enhancement can be seen involving the spinal cord. Dictated by: Dangelo Reed M.D. on 07/08/2025 at 16:27 Approved by: Dangelo Reed M.D. on 07/08/2025 at 16:28
== END ==
LOC: MRI 16:11
PROVIDERS: Family Provider Student in an Organized Health Care Education/Training Program; PCP Family Medicine; Visit Provider Physician Assistant
DX: G43.009 Migraine without aura, not intractable, without status migrainosus (principal)
CPT/HCPCS: 70553; 72156; A9579

== ENCOUNTER → 2025-08-25 10:23 | Outpatient (CLI) | payer OTHER, SELFPAY ==
[2024-07-06 09:28] VITALS: BMI 36.2
== END ==
LOC: WC 10:23
PROVIDERS: Family Provider Student in an Organized Health Care Education/Training Program; PCP Family Medicine; Referring Provider Nurse Practitioner Family; Visit Provider Surgery
DX: S81.852A Open bite, left lower leg, initial encounter (principal); L98.8 Other specified disorders of the skin and subcutaneous tissue; R23.3 Spontaneous ecchymoses; L53.9 Erythematous condition, unspecified; M19.09 Primary osteoarthritis, other specified site; W54.0XXA Bitten by dog, initial encounter
CPT/HCPCS: 11042; 87070; 87075; 87077; 87186; 87205; 99203

== ENCOUNTER → 2025-09-02 13:46 | Outpatient (CLI) | payer OTHER, SELFPAY ==
[2024-07-06 09:28] VITALS: BMI 36.2
== END ==
LOC: WC 14:00
PROVIDERS: Family Provider Student in an Organized Health Care Education/Training Program; PCP Family Medicine; Referring Provider Family Medicine; Visit Provider Surgery
DX: S81.852A Open bite, left lower leg, initial encounter (principal); L53.9 Erythematous condition, unspecified; W54.0XXA Bitten by dog, initial encounter
CPT/HCPCS: 97602; 99213

== ENCOUNTER → 2025-09-14 14:45 | Outpatient (CLI) | payer OTHER, SELFPAY ==
[2024-07-06 09:28] VITALS: BMI 36.2
== END ==
LOC: WC 09-15 10:34
PROVIDERS: Family Provider Student in an Organized Health Care Education/Training Program; PCP Family Medicine; Referring Provider Family Medicine; Visit Provider Surgery
DX: S81.852A Open bite, left lower leg, initial encounter (principal); W54.0XXA Bitten by dog, initial encounter
CPT/HCPCS: 99213